=== PATIENT | male | born 1970 | race Caucasian/White ===

== ENCOUNTER 2024-09-10 09:11 | Inpatient (IN) | payer MEDICAID, MEDICARE, OTHER ==
[~2024-09-10] VITALS: Ht 180.3 cm; Wt 116.2 kg
--- NOTE | 2024-09-10 09:29 | ECG ---
[facility] Test Date: 2024-09-10 Test Time: 09:24:11 Pat Name: ARSALAN LAYTON Department: er Room: 0245T Gender: M Supervisor Tan Room: gp : 1970 Requested By: HUNG MORGAN Order Number: [id number] Reading MD: Felipe Huffman Measurements Intervals [place] Rate: 79 P: -3 [place]: 134 QRS: 109 QRSD: 109 T: -21 QT: 387 QTc: 444 Interpretive Statements Sinus rhythm Inferior infarct, age indeterminate Lateral leads are also involved Electronically Signed On 09-11-2024 18:22:58 PST by Felipe Huffman Please click the below link to view image of tracing.
--- NOTE | 2024-09-10 10:10 | ED.PDOC ---
History of Present Illness HPI Comments 64 Y M ADELSO with PMHX of HTN, HLD, and DM presents to the ED with CC of hyperglycemia. Per EMS, patient has been experiencing blood sugar spikes xdays with associated symptoms of nausea, vomiting, and dizziness. Per EMS, accu-check was 470 in route to ED. Patient states that he checked his blood sugar last night and glucometer read at 540 and took 45 units of insulin with no results. Patient denies fever, chills, body aches, or diarrhea. Chief Complaint: Hyperglycemia Time Seen by MD: 09:30 Primary Care Provider: UNKNOWN Reviewed Notes: Nurses Notes, Rn Social Services Notes, Medications, Allergies Allergies: Coded Allergies: NO KNOWN ALLERGIES (Unverified , 09/10/24) Information Source: Patient, Emergency Med Personnel Mode of Arrival: EMS Severity: Mild Timing: Hours Duration: Since onset Prehospital treatment: 12 Lead EKG, Accucheck Past Medical History PAST MEDICAL HISTORY: DM, High Lipids, HTN Surgical History: Unknown Family History Family History: Unknown Social History Smoker: Non-Smoker Alcohol: Denies ETOH Use Drugs: Denies Drug Use Lives In: Home Constitutional: denies: chills, diaphoresis, fatigue, fever, malaise, sweats, weakness, others EENTM: denies: blurred vision, double vision, ear bleeding, ear discharge, ear drainage, ear pain, ear ringing, eye pain, eye redness, hearing loss, mouth pain, mouth swelling, nasal discharge, nose bleeding, nose congestion, nose pain, photophobia, tearing, throat pain, throat swelling, voice changes, others Respiratory: denies: cough, hemoptysis, orthopnea, SOB at rest, shortness of breath, SOB with excertion, stridor, wheezing, others Gastrointestinal: reports: diarrhea, nausea; denies: abdomen distended, abdominal pain, blood streaked bowels, constipated, dysphagia, difficulty swallowing, hematemesis, melena, poor appetite, poor fluid intake, rectal bleeding, rectal pain, vomiting, others Genitourinary: denies: burning, dysuria, flank pain, frequency, hematuria, incontinence, penile discharge, penile sore, pain, testicle pain, testicle swelling, urgency, others Neurological: reports: dizziness; denies: fainting, headache, left sided numbness, left sided weakness, numbness, paresthesia, pre-existing deficit, right sided numbness, right sided weakness, seizure, speech problems, tingling, tremors, weakness, others Musculoskeletal: denies: back pain, gout, joint pain, joint swelling, muscle pain, muscle stiffness, neck pain, others Integumetry: denies: bruises, change in color, change in hair/nails, dryness, laceration, lesions, lumps, rash, wounds, others Allergic/Immunocompromised: denies: Difficulty Healing, Frequent Infections, Hives, Itching, others Hematologic/Lymphatic: denies: anemia, blood clots, easy bleeding, easy bruising, swollen glands, others Endocrine: denies: excessive hunger, excessive sweating, excessive thirst, excessive urination, flushing, intolerance to cold, intolerance to heat, unexplained weight gain, unexplained weight loss, others Psychiatric: denies: anxiety, bipolar disorder, depression, hopeless, panic disorder, schizophrenia, sleepless, suicidal, others All Other Systems: Reviewed and Negative Physical Exam General Appearance: Moderate Distress, Normal HEENT: Normal ENT Inspection, Pharynx Normal, TMs Normal Neck: Full Range of Motion, Non-Tender, Normal, Normal Inspection Respiratory: Chest Non-Tender, Lungs Clear, No Accessory Muscle Use, No Respiratory Distress, Normal Breath Sounds Cardiovascular: No Edema, No JVD, No Murmur, No Gallop, Normal Peripheral Pul ses, Regular Rate/Rhythm Breast Exam: Deferred Gastrointestinal: No Organomegaly, Non Tender, No Pulsatile Mass, Normal Bowel Sounds, Soft Genitalia: Deferred Pelvic: Deferred Rectal: Deferred Extremities: No calf tenderness, Normal capillary refill, Normal inspection, Normal range of motion, Non-tender, No pedal edema Musculoskeletal : Apperance: Normal Neurologic: Alert, global sales executive II-XII nml as Tested, No Motor Deficits, Normal Affect, Normal Mood, No Sensory Deficits Cerebellar Function: Normal Reflexes: Normal Skin: Dry, Normal Color, Warm Peripheral Pulses: 3+ Radial (R), 3+ Radial (L) Lymphatic: No Adenopathy Was a procedure done? Was a procedure done?: No Differential Dx Considerations may include: hyperglycemia Electrolyte imbalance X-Ray, Labs, Meds, VS Vital Signs Date Time Temp Pulse Resp B/P (MAP) Pulse Ox O2 Delivery O2 Flow Rate FiO2 09/10/24 11:48 97.9 71 17 101/60 (74) 97 97.9 09/10/24 09:32 98.5 78 18 104/72 (83) 100 98.5 09/10/24 09:24 79 09/10/24 09:20 98.9 82 24 117/70 (86) 100 Lab Test 09/10/24 09:48 Range/Units White Blood Count 5.2 4.4-10.8 10^3/uL Red Blood Count 5.72 4.5-5.90 10^6/uL Hemoglobin 16.7 13.5-17.5 g/dL Hematocrit 49.0 41.0-53.0 % Mean Corpuscular Volume 85.7 80.0-100.0 fL Mean Corpuscular Hemoglobin 29.2 28.0-32.0 pg Mean Corpuscular Hemoglobin Concent 34.1 32.0-36.0 g/dL Red Cell Distribution Width 14.5 H 11.8-14.3 % Platelet Count 227 140-450 10^3/uL Mean Platelet Volume 10.8 6.9-10.8 fL Neutrophils (%) (Auto) 42.6 37.0-80.0 % Lymphocytes (%) (Auto) 42.4 10.0-50.0 % Monocytes (%) (Auto) 6.7 0.0-12.0 % Eosinophils (%) (Auto) 6.5 0.0-7.0 % Basophils (%) (Auto) 1.8 0.0-2.0 % Neutrophils # (Auto) 2.2 1.6-8.6 10 ^3/uL Lymphocytes # (Auto) 2.2 0.4-5.4 10 ^3/uL Monocytes # (Auto) 0.3 0-1.3 10 ^3/uL Eosinophils # (Auto) 0.3 0-0.8 10 ^3/uL Basophils # (Auto) 0.1 0-0.2 10 ^3/uL Nucleated Red Blood Cells 0.2 % Sodium Level 132 L 136-145 mmol/L Potassium Level 4.8 3.5-5.1 mmol/L Chloride Level 99 98-107 mmol/L Carbon Dioxide Level 24 20-31 mmol/L Anion Gap 9 5-15 Blood Urea Nitrogen 19 9-23 mg/dL Creatinine 1.30 0.700-1.30 mg/dL Glomerular Filtration Rate Calc 61 >90 mL/min BUN/Creatinine Ratio 14.6 10.0-20.0 Serum Glucose 479 *H 74-106 mg/dL Calcium Level 10.1 8.7-10.4 mg/dL Troponin I High Sensitivity 3 L </=54 ng/L Current Medications Medications (Trade) Dose Ordered Sig/Jeremiah Route Start Time Stop Time Status Last Admin Sodium Chloride 1,000 ml @ 1,000 mls/hr Q1H ONCE IV 09/10/24 09:30 09/10/24 10:29 DC 09/10/24 10:57 Sodium Chloride 1,000 ml @ 150 mls/hr Q6H40M ONCE IV 09/10/24 09:30 09/10/24 16:09 09/10/24 11:30 Aspirin 325 mg ONCE ONCE PO 09/10/24 09:30 09/10/24 09:31 DC 09/10/24 10:58 Insulin Human Regular (InsuLIN R) 3 units ONCE ONCE IV 09/10/24 09:45 09/10/24 09:46 DC 09/10/24 11:00 Patient alert. Complaining of generalized weakness. Blood sugar elevated. Vitals stable. Establish intravenous access. Was given fluids. Was given insulin. Was given aspirin. Continues to have weakness along with feeling of faint. Reviewed his history pain Explained to the patient. Continue cardiac monitoring. Time of 1ST Reevaluation: 10:00 Reevaluation 1ST: Unchanged Patient Education/Counseling: Diagnosis, Treatment Family Education/Counseling: No Family Present Departure 1 Departure Time of Disposition: 12:27 Impression: Primary Impression: Uncontrolled diabetes mellitus Qualified Codes: E13.65 - Other specified diabetes mellitus with hyperglycemia Additional Impression: Autonomic disorder Disposition: ADMITTED INPATIENT Admit to: Med Surg Condition: Guarded Critical Care Note Critical Care Time?: Yes (45 min-critical care time only) Stability Stability form required: No Heart Score Heart Score: Heart Score Response (Comments) Value History Slightly Suspicious 0 EKG Normal 0 Age >65 2 Risk Factors >3 or Hx ASHD 2 Troponin Normal limit 0 Total 4 I personally scribed for HUNG MORGAN MD ([email or web address]) on 09/10/24 at 10:10. Electronically submitted by Xochitl Stephenson ([email or web address]). HUNG MORGAN MD Sep 10, 2024 10:10
[2024-09-10 10:29] LABS: Basophils # (auto) 0.1 10 ^3/uL (0-0.2); Basophils % (auto) 1.8 % (0.0-2.0); Eosinophils # (auto) 0.3 10 ^3/uL (0-0.8); Eosinophils % (auto) 6.5 % (0.0-7.0); Hemoglobin 16.7 g/dL (13.5-17.5); Lymphocytes # (auto) 2.2 10 ^3/uL (0.4-5.4); Lymphocytes % (auto) 42.4 % (10.0-50.0); Mean Corpuscular Hemoglobin 29.2 pg (28.0-32.0); Mean Corpuscular Hgb Conc. 34.1 g/dL (32.0-36.0); Mean Corpuscular Volume 85.7 fL (80.0-100.0); Monocytes # (auto) 0.3 10 ^3/uL (0-1.3); Monocytes % (auto) 6.7 % (0.0-12.0); Neutrophils # (auto) 2.2 10 ^3/uL (1.6-8.6); Neutrophils % (auto) 42.6 % (37.0-80.0); Nucleated Red Blood Cells % 0.2 %; Platelet Count (auto) 227 10^3/uL (140-450); Red Blood Cells 5.72 10^6/uL (4.5-5.90); Red Cell Distribution Width 14.5 % (11.8-14.3); White Blood Cell 5.2 10^3/uL (4.4-10.8)
[2024-09-10 10:49] LABS: Chloride 99 mmol/L (98-107); Potassium 4.8 mmol/L (3.5-5.1)
[2024-09-10 10:50] LABS: Anion Gap 9 (5-15); Carbon Dioxide 24 mmol/L (20-31)
[2024-09-10 10:51] LABS: Calcium 10.1 mg/dL (8.7-10.4); Sodium 132 mmol/L (136-145)
[2024-09-10 10:56] LABS: BUN/Creatinine Ratio 14.6 (10.0-20.0); Blood Urea Nitrogen 19 mg/dL (9-23)
[2024-09-10] MEDS: SODIUM CHLORIDE 0.9% 1,000 ML IV ONE ×2 (10:57→11:30)
[2024-09-10] MEDS: ASPirin 325 MG TAB PO ONE (10:58)
[2024-09-10] MEDS: InsuLIN REG 1unit/0.01ml Soln (100units/ml) IV ONE (11:00)
[2024-09-10 11:02] LABS: Glucose 479 mg/dL (74-106)
[2024-09-10] MEDS ORDERED: DOCUSATE SOD 100 MG CAP PO PRN (14:30)
[2024-09-10] MEDS: SODIUM CHLORIDE 0.9% 1,000 ML IV SCH (14:30)
[2024-09-10] MEDS ORDERED: ACETAMINOPHEN 325 MG TAB PO PRN (14:30)
[2024-09-10] MEDS ORDERED: DEXTROSE (50%) 50ML SYRG IV PRN (14:30)
[2024-09-10] MEDS: InsuLIN REG 1unit/0.01ml Soln (100units/ml) SC SCH (15:56)
[2024-09-10] MEDS: ACCU-CHEK COMFORT CURVE STRIP VI SCH (16:00)
--- NOTE | 2024-09-10 16:28 | DVHHP2 ---
History of Present Illness Reason for Visit: Uncontrolled diabetes mellitus History of Present Illness The patient is a 64-year-old male with multiple past medical history including hypertension, DM, and hyperlipidemia who presented to [facility] ED for evaluation of hyperglycemia. Patient reports associated symptoms of nausea, vomiting, dizziness, having anxiety, getting worse that prompted this visit. Patient was seen and evaluated in the ED, laboratory data shows WBC 5.2, platelets 227, sodium 132, potassium 4.8, BUN 19, creatinine 1.30, GFR 61, glucose 479, troponin 3. Patient was given 1 L bolus of normal saline IV x1, please see medication orders section in the computer. On my assessment, patient denied chest pain, no headache, no dizziness, no blurry vision, no shortness of breath, no nausea, no vomiting, no fever, no chills. Patient was admitted for further evaluation and medical management. Past Medical History Anxiety, DM, High Lipids, HTN, neuropathy, Schizophrenia Past Surgical History Unknown Family History Reviewed, noncontributory to the management of this case. Past Social History The patient lives at home, denies smoking, alcohol or illicit drugs abuse. Review of Systems Constitutional: Yes: Weakness; No: Fever, Chills, Sweats, Malaise, Other Eyes: No: Pain, Vision change, Conjunctivae inflammation, Eyelid inflammation, Other, Redness ENT: No: Ear pain, Ear discharge, Nose pain, Nose discharge, Nose congestion, Mouth pain, Mouth swelling, Throat pain, Throat swelling, Other Respiratory: No: Cough, Dry, Shortness of breath, SOB with excertion, Wheezing, Hemoptysis, Pleuritic Pain, Sputum, Wheezing, Other Cardiovascular: No: Chest Pain, Palpitations, Orthopnea, Paroxysmal Noc. Dyspnea, Edema, Lt Headedness, Other Gastrointestinal: Nausea, Vomiting, Diarrhea; No: Abdominal Pain, Constipation, Melena, Hematochezia, Other Genitourinary: No Dysuria, No Frequency, No Incontinence, No Hematuria, No Retention, No Other Musculoskeletal: No: other, neck pain, shoulder pain, arm pain, back pain, hand pain, leg pain, foot pain Skin: No: Rash, Lesions, Jaundice, Bruising, Other Neurological: Other (Dizziness); No: Weakness, Numbness, Incoordination, Change in speech, Confusion, Seizures Allergies: Coded Allergies: NO KNOWN ALLERGIES (Unverified , 09/10/24) Medications Current Medications Medications Dose Ordered Sig/Jeremiah Route Start Time Stop Time Status Last Admin Dose Admin Aspirin 81 mg DAILY PO 09/11/24 10:00 Atorvastatin Calcium 10 mg HS PO 09/10/24 22:00 Diagnostic Test (Pha) 1 strip IQ4HR 09/10/24 16:00 Insulin Human Regular IQ4HR SC 09/10/24 16:00 09/10/24 15:56 12 UNITS Dextrose 50 ml UD PRN IV 09/10/24 14:30 Sodium Chloride 1,000 ml @ 60 mls/hr [id number] IV 09/10/24 14:30 Acetaminophen/ Hydrocodone Bitart 1 tab Q4HP PRN PO 09/10/24 14:30 Ondansetron HCl 4 mg Q4HP PRN IV 09/10/24 14:30 Docusate Sodium 100 mg BIDPRN PRN PO 09/10/24 14:30 Acetaminophen 650 mg Q6HP PRN PO 09/10/24 14:30 Exam Vital Signs Vital Signs Date Time Temp Pulse Resp B/P (MAP) Pulse Ox O2 Delivery O2 Flow Rate FiO2 09/10/24 14:27 98.2 74 17 128/80 (96) 98 98.2 General Appearance: Alert, Oriented X3, Cooperative, No acute distress HEENT: Atraumatic, PERRLA, EOMI, Mucous membr. moist/pink Respiratory: Clear to auscultation, Normal air movement Cardiovascular: Regular rate, Normal S1, Normal S2, No murmurs Abdominal: Normal bowel sounds, Soft, No tenderness, No hepatospenomegaly, No masses Extremities: No clubbing, No cyanosis, No edema, Normal pulses, No tenderness/swelling Skin: No rashes, No breakdown, No significant lesion Neuro: Normal speech, Normal tone, Sensation intact, Cranial nerves 3-12 NL, Reflexes 2+, Other (Generalized weakness) Psych/Mental Status: Mental status NL, Mood NL Labs/Xrays Labs Test 09/10/24 09:48 Range/Units White Blood Count 5.2 4.4-10.8 10^3/uL Red Blood Count 5.72 4.5-5.90 10^6/uL Hemoglobin 16.7 13.5-17.5 g/dL Hematocrit 49.0 41.0-53.0 % Mean Corpuscular Volume 85.7 80.0-100.0 fL Mean Corpuscular Hemoglobin 29.2 28.0-32.0 pg Mean Corpuscular Hemoglobin Concent 34.1 32.0-36.0 g/dL Red Cell Distribution Width 14.5 H 11.8-14.3 % Platelet Count 227 140-450 10^3/uL Mean Platelet Volume 10.8 6.9-10.8 fL Neutrophils (%) (Auto) 42.6 37.0-80.0 % Lymphocytes (%) (Auto) 42.4 10.0-50.0 % Monocytes (%) (Auto) 6.7 0.0-12.0 % Eosinophils (%) (Auto) 6.5 0.0-7.0 % Basophils (%) (Auto) 1.8 0.0-2.0 % Neutrophils # (Auto) 2.2 1.6-8.6 10 ^3/uL Lymphocytes # (Auto) 2.2 0.4-5.4 10 ^3/uL Monocytes # (Auto) 0.3 0-1.3 10 ^3/uL Eosinophils # (Auto) 0.3 0-0.8 10 ^3/uL Basophils # (Auto) 0.1 0-0.2 10 ^3/uL Nucleated Red Blood Cells 0.2 % Sodium Level 132 L 136-145 mmol/L Potassium Level 4.8 3.5-5.1 mmol/L Chloride Level 99 98-107 mmol/L Carbon Dioxide Level 24 20-31 mmol/L Anion Gap 9 5-15 Blood Urea Nitrogen 19 9-23 mg/dL Creatinine 1.30 0.700-1.30 mg/dL Glomerular Filtration Rate Calc 61 >90 mL/min BUN/Creatinine Ratio 14.6 10.0-20.0 Serum Glucose 479 *H 74-106 mg/dL Calcium Level 10.1 8.7-10.4 mg/dL Troponin I High Sensitivity 3 L </=54 ng/L Assessment/Plan Assessment/Plan Uncontrolled diabetes mellitus Autonomic disorder Generalized weakness Other specified diabetes mellitus with hyperglycemia Plan 1. Admit to telemetry unit 2. Breathing treatment 3. Pain control management 4. Management of fluids and electrolytes 5. Consultation for hospitalist 6. Diagnostic tests chest x-ray 7. DVT prophylaxis-on aspirin 8. Repeat labs CBC, CMP in a.m. 9. Continue with current medical management 10. Treatment plan discussed with patient and RN. Patient verbalized understanding. Plan discussed with: Patient, Other (RN) My Orders Orders - ESTEVAN BROWN DNP Procedure Category Date Status Time Consistent DIET 09/10/24 Transmitted Carb(Ccho)Diabetes Dinner Aspirin Tablet PHA 09/11/24 In Process 10:00 Atorvastatin (Lipitor) PHA 09/10/24 In Process 22:00 Glucose Blood PHA 09/10/24 In Process (Accu-Chek Comfort 16:00 Insulin R (Human) PHA 09/10/24 In Process (Insulin R) 16:00 Dextrose 50% Syringe PHA 09/10/24 In Process 14:30 Allergies AYLA 09/10/24 In Process 14:24 Code Status CODE 09/10/24 Transmitted 14:24 Sodium Chloride 0.9% PHA 09/10/24 In Process 14:30 Oxygen Per Hour RT 09/10/24 Transmitted 14:24 Hydrocodone-Acet PHA 09/10/24 In Process 5/325mg Tab ([place] 14:30 Ondansetron Hcl PHA 09/10/24 In Process (Zofran) 14:30 Docusate Sodium PHA 09/10/24 In Process Capsule (Colace 14:30 Complete Blood Count LAB 09/11/24 Verified 04:00 Comprehensive LAB 09/11/24 Verified Metabolic Panel 04:00 Condition: Serious AYLA 09/10/24 In Process 14:24 Acetaminophen Tablet PHA 09/10/24 In Process (Tylenol Tablet) 14:30 Bedrest With Bathroom AYLA 09/10/24 In Process Privileg 14:24 Sequential AYLA 09/10/24 In Process Compression Device Gabapentin Capsule PHA 09/10/24 Verified (Neurontin Capsule) 22:00 Admit ADMIT 09/10/24 Verified 16:25 Nitroglycerin PHA 09/10/24 Verified Sublingual (Ntrostat 16:30 Morphine Sulfate PHA 09/10/24 Verified Injection 16:30 Notify Of Changes AYLA 09/10/24 Verified From Base 16:25 Switch Engineer For [facility] 09/10/24 Verified 24 Hours 16:25 Emergency Dysrhythmia AYLA 09/10/24 Verified Protocol 16:25 Rhythm Strips Once AYLA 09/10/24 Verified Every Shift 16:25 Oxygen By Nasal RT 09/10/24 Verified Cannula 16:25 Problem List: (1) Uncontrolled diabetes mellitus (2) Autonomic disorder (3) Generalized weakness (4) Other specified diabetes mellitus with hyperglycemia Date of Service: Sep 10, 2024 Billing Provider: ESTEVAN BROWN DNP Common Visit Codes: [id number] INP/OBS CARE (HIGH) ESTEVAN BROWN DNP Sep 10, 2024 16:28
[2024-09-10] MEDS ORDERED: NITROGLYCERIN 0.4 MG SL TAB SL PRN (16:30)
[2024-09-10] MEDS: MORPHINE SULFATE INJ 2 MG/ml SYRG IV PRN (19:54)
[2024-09-10] MEDS: ONDANSETRON HCL 4 MG/2 ML VIAL IV PRN (19:54)
[2024-09-10 23:00] VITALS: PULSE 71; RESP 19; O2SAT 98
[2024-09-11] VITALS (8 sets, daily range): BP systolic 108–132; BP diastolic 70–84; PULSE 62–75; RESP 16–20; TEMP 98–98.5; O2SAT 93–99
[2024-09-11] MEDS: ATORVASTATIN 20 MG TAB PO SCH ×2 (00:08→21:09)
[2024-09-11] MEDS: GABAPENTIN 300 MG CAP PO SCH (00:09)
[2024-09-11 07:33] LABS: Basophils # (auto) 0 10 ^3/uL (0-0.2); Basophils % (auto) 0.7 % (0.0-2.0); Eosinophils # (auto) 0.6 10 ^3/uL (0-0.8); Hemoglobin 16.2 g/dL (13.5-17.5); Lymphocytes # (auto) 2.6 10 ^3/uL (0.4-5.4); Lymphocytes % (auto) 42.5 % (10.0-50.0); Mean Corpuscular Hemoglobin 29.4 pg (28.0-32.0); Mean Corpuscular Hgb Conc. 34.5 g/dL (32.0-36.0); Mean Corpuscular Volume 85.2 fL (80.0-100.0); Monocytes # (auto) 0.4 10 ^3/uL (0-1.3); Monocytes % (auto) 7.1 % (0.0-12.0); Neutrophils # (auto) 2.4 10 ^3/uL (1.6-8.6); Neutrophils % (auto) 39.7 % (37.0-80.0); Nucleated Red Blood Cells % 0.2 %; Platelet Count (auto) 174 10^3/uL (140-450); Red Blood Cells 5.52 10^6/uL (4.5-5.90); Red Cell Distribution Width 14.2 % (11.8-14.3); White Blood Cell 6.2 10^3/uL (4.4-10.8)
[2024-09-11 08:15] LABS: Alanine Aminotransferase 14 U/L (7-40); Anion Gap 9 (5-15); Blood Urea Nitrogen 16 mg/dL (9-23); Calcium 9.9 mg/dL (8.7-10.4); Carbon Dioxide 24 mmol/L (20-31); Chloride 105 mmol/L (98-107); Potassium 3.9 mmol/L (3.5-5.1); Sodium 138 mmol/L (136-145)
[2024-09-11 08:16] LABS: Albumin 3.9 g/dL (3.2-4.8); Bilirubin, Total 0.6 mg/dL (0.2-1.0); Total Protein 6.5 g/dL (5.7-8.2)
[2024-09-11 08:28] LABS: Alkaline Phosphatase 124 U/L (46-116); Aspartate Aminotransferase 13 U/L (13-40); Glucose 170 mg/dL (74-106)
[2024-09-11] MEDS: ASPirin 81 mg TAB PO SCH (09:16)
[2024-09-11] MEDS: HYDROcodone-ACET 5/325MG TAB PO PRN (09:18)
[2024-09-11 10:01] LABS: Urine Bacteria None Seen /hpf (None Seen)
[2024-09-11 10:35] LABS: Urine Blood Negative /uL (Negative); Urine Clarity Turbid (Clear); Urine Color Light-Yellow (Yellow); Urine Protein, UAD Negative (Negative); Urine Specific Gravity 1.016 (1.001-1.035); Urine Squamous Epithelial Cell None Seen /hpf (<5); Urine Urobilinogen Normal (Negative); Urine WBC 4 /hpf (0 - 3)
--- NOTE | 2024-09-11 15:28 | DVHPN2 ---
Progress Note Date Seen: Sep 11, 2024 Medical Necessity Reason Pt with a Central, PICC or Fol: No Subjective Patient reports: No new complaints Review of Systems: HEENT:Normal, CVS:Normal, RESPIRATORY:Normal, GI:Normal, :Normal, MSK:Normal, NEURO:Normal Objective vital signs Vital Sign Date Time Temp Pulse Resp B/P (MAP) Pulse Ox O2 Delivery O2 Flow Rate FiO2 09/11/24 13:00 98.5 75 20 123/78 (93) 97 98.5 09/11/24 02:00 Room Air* 0 21 Total Intake and Output 09/10/24 09/10/24 09/11/24 15:00 23:00 07:00 Intake Total 0 ml Balance 0 ml medications Current Medications Medications Dose Ordered Sig/Jeremiah Route Start Time Stop Time Status Last Admin Dose Admin Aspirin 81 mg DAILY PO 09/11/24 10:00 09/11/24 09:16 81 MG Atorvastatin Calcium 10 mg HS PO 09/10/24 22:00 09/11/24 00:08 10 MG Diagnostic Test (Pha) 1 strip IQ4HR 09/10/24 16:00 09/11/24 12:56 1 STRIP Insulin Human Regular IQ4HR SC 09/10/24 16:00 09/11/24 12:58 16 UNITS Dextrose 50 ml UD PRN IV 09/10/24 14:30 Sodium Chloride 1,000 ml @ 60 mls/hr [id number] IV 09/10/24 14:30 09/11/24 09:32 60 MLS/HR Acetaminophen/ Hydrocodone Bitart 1 tab Q4HP PRN PO 09/10/24 14:30 09/11/24 13:20 1 TAB Ondansetron HCl 4 mg Q4HP PRN IV 09/10/24 14:30 09/10/24 19:54 4 MG Docusate Sodium 100 mg BIDPRN PRN PO 09/10/24 14:30 Acetaminophen 650 mg Q6HP PRN PO 09/10/24 14:30 Gabapentin 300 mg TID PO 09/10/24 22:00 09/11/24 13:21 300 MG Nitroglycerin 0.4 mg Q5MINP PRN SL 09/10/24 16:30 Morphine Sulfate 2 mg Q30M PRN IV 09/10/24 16:30 09/10/24 19:54 2 MG Examination: GENERAL:Normal, HEENT:Normal, NECK:Normal, LUNGS:Normal, CVS:Normal, ABDOMEN:Normal, MSK:Normal, SKIN:Normal, NEURO:Normal, :Normal laboratory and microbiology Laboratory Tests 09/11/24 06:05 Test 09/11/24 06:05 Range/Units Serum Glucose 170 #H 74-106 mg/dL Problem List/Assessment/Plan Problem List/Assessment/Plan #1 uncontrolled dm: lantus, ssi #2 htn #3 cad s/p cabg #4 bipolar/schizophrenia #5 h/o alcohol abuse #6 obesity #7 peripheral neuropathy advance care planning- full code- time spent 19mins Plan discussed with: Patient Date of Service: Sep 11, 2024 Billing Provider: JARON ZENDEJAS MD Common Visit Codes: [id number] INP/OBS CARE(HIGH) Secondary Visit Codes: [id number] CARE PLAN 30 MINUTES JARON ZENDEJAS MD Sep 11, 2024 15:28
[2024-09-11] MEDS ORDERED: DEXTROSE (50%) 50ML SYRG IV PRN (15:30)
[2024-09-11] MEDS ORDERED: METF-370 PO (15:42)
[2024-09-11] MEDS ORDERED: INSU100I51 SC (15:42)
[2024-09-11] MEDS ORDERED: ESCI10TA PO (15:42)
[2024-09-11] MEDS ORDERED: ATOR-47 PO (15:42)
[2024-09-11] MEDS ORDERED: PREG75CA PO (15:42)
[2024-09-11] MEDS ORDERED: ARIP20TA4 PO (15:42)
[2024-09-11] MEDS ORDERED: LISI20TA56 PO (15:42)
[2024-09-11] MEDS ORDERED: TRAZ1TAB12 PO (15:42)
--- NOTE | 2024-09-11 16:29 | DVHSR ---
APPROVED REPORT EXAM: Two-dimensional and M-mode echocardiogram with Doppler and color Doppler. Blood Pressure: 123/78 mmHg INDICATION CABG RISK FACTORS Height: 70, Weight: 253 DIMENSIONS LVDd4.6 (3.8-5.7cm)LA (2D)5.0 (1.9-4.0cm)Aortic Root4.1 (2.0-3.7cm) LVDs3.5 (2.5-4.0cm)LA (MM) (1.9-4.0cm)Aortic Cusp Exc1.0 (1.5-2.0cm) EF (%) 48.0 (55-70%)Rt. Atrium3.3 (1.9-4.0cm)Asc. Aorta cm IVSd1.4 (0.7-1.1cm)RV (D) (1.8-2.4cm) PWd1.4 (0.7-1.1cm) Mitral Valve MitralMitral Stenosis E wave0.83m/sMV Mean GR.mmHg A wave0.79m/sMV Peak GR.19mmHg E/A ratio1.12D MVAcm2 DECEL [id number] 1/2 [id number] IVRTmsDop MVA3.20cm2 Aortic Valve Aortic ValveAortic Stenosis V11.01m/Dusty Mean GR.3mmHg V21.14m/Dusty Peak GR.5mmHg LVOT Diameter2.2 (1.8-2.4cm)Doppler AVA3.37cm2 Pulmonic Valve V20.79m/s Tricuspid Valve TR Velocity2.15m/s [id number] Conclusion lvef 45% hypokinetic apex and anteroseptum dilated LV mild RV enlarged left atrium enlarged mild mild mitral regurg
[2024-09-11] MEDS: THIAMINE HCL 100 MG TAB PO ONE (17:54)
[2024-09-11] MEDS: HYDROcodone-ACET 10/325MG TAB PO PRN (17:54)
[2024-09-11] MEDS: PREGABALIN CAPSULE 75 MG CAP PO ONE (17:55)
[2024-09-11] MEDS: ACCU-CHEK COMFORT CURVE STRIP VI SCH (17:55)
[2024-09-11] MEDS: InsuLIN REG 1unit/0.01ml Soln (100units/ml) SC SCH (18:02)
[2024-09-11] MEDS: PREGABALIN CAPSULE 75 MG CAP PO SCH (21:09)
[2024-09-11] MEDS: INSULIN LANTUS (GLARGINE) 1 /0.01ml (100units/ml) SC SCH (21:18)
[2024-09-12] VITALS (8 sets, daily range): BP systolic 121–137; BP diastolic 65–81; PULSE 54–70; RESP 14–20; TEMP 97.6–99.2; O2SAT 93–98
[2024-09-12 06:49] LABS: Anion Gap 2 (5-15); Carbon Dioxide 27 mmol/L (20-31); Chloride 106 mmol/L (98-107); Potassium 4.1 mmol/L (3.5-5.1)
[2024-09-12 06:50] LABS: Calcium 8.7 mg/dL (8.7-10.4)
[2024-09-12 06:52] LABS: Sodium 135 mmol/L (136-145)
[2024-09-12 06:55] LABS: BUN/Creatinine Ratio 11.6 (10.0-20.0); Blood Urea Nitrogen 11 mg/dL (9-23)
[2024-09-12 06:57] LABS: Glucose 240 mg/dL (74-106); Magnesium 1.3 mg/dL (1.6-2.6)
[2024-09-12] MEDS: THIAMINE HCL 100 MG TAB PO SCH (09:04)
--- NOTE | 2024-09-12 10:32 | ECG ---
[facility] Test Date: 2024-09-11 Test Time: 21:39:44 Pat Name: ARSALAN LAYTON Department: Respiratoy Room: 0245T B Gender: M Health Associate: [id number] : 1970 Requested By: JARON VELIZ Order Number: [id number] Reading MD: Janak Vera Measurements Intervals [place] Rate: 64 P: 14 ME: 157 QRS: -8 QRSD: 114 T: 9 QT: 422 QTc: 436 Interpretive Statements Sinus rhythm Inferior infarct, old Electronically Signed On 09-12-2024 12:30:19 PST by Janak Vera Please click the below link to view image of tracing.
--- NOTE | 2024-09-12 15:25 | DVHPN2 ---
Progress Note Date Seen: Sep 12, 2024 Medical Necessity Reason Pt with a Central, PICC or Fol: No Subjective Patient reports: No new complaints Review of Systems: HEENT:Normal, CVS:Normal, RESPIRATORY:Normal, GI:Normal, :Normal, MSK:Normal, NEURO:Normal Objective vital signs Vital Sign Date Time Temp Pulse Resp B/P (MAP) Pulse Ox O2 Delivery O2 Flow Rate FiO2 09/12/24 12:59 98.4 61 14 137/78 (97) 98 98.4 09/11/24 20:00 Room Air* 0 21 Total Intake and Output 09/11/24 09/11/24 09/12/24 15:00 23:00 07:00 Intake Total 1920 ml 1390 ml Output Total 760 ml Balance 1920 ml 630 ml medications Current Medications Medications Dose Ordered Sig/Jeremiah Route Start Time Stop Time Status Last Admin Dose Admin Aspirin 81 mg DAILY PO 09/11/24 10:00 09/12/24 09:04 81 MG Sodium Chloride 1,000 ml @ 60 mls/hr [id number] IV 09/10/24 14:30 09/11/24 23:34 60 MLS/HR Ondansetron HCl 4 mg Q4HP PRN IV 09/10/24 14:30 09/10/24 19:54 4 MG Docusate Sodium 100 mg BIDPRN PRN PO 09/10/24 14:30 Acetaminophen 650 mg Q6HP PRN PO 09/10/24 14:30 Nitroglycerin 0.4 mg Q5MINP PRN SL 09/10/24 16:30 Morphine Sulfate 2 mg Q30M PRN IV 09/10/24 16:30 09/11/24 21:57 2 MG Atorvastatin Calcium 40 mg HS PO 09/11/24 22:00 09/11/24 21:09 40 MG Acetaminophen/ Hydrocodone Bitart 1 tab Q6HP PRN PO 09/11/24 15:30 09/12/24 12:25 1 TAB Pregabalin 150 mg BID PO 09/11/24 22:00 09/12/24 09:04 150 MG Insulin Glargine 30 units BID@0700,2200 SC 09/11/24 22:00 09/12/24 06:23 30 UNITS Diagnostic Test (Pha) 1 strip IQ4HR 09/11/24 16:00 09/12/24 12:25 1 STRIP Insulin Human Regular IQ4HR SC 09/11/24 16:00 09/12/24 12:28 9 UNITS Dextrose 50 ml UD PRN IV 09/11/24 15:30 Thiamine HCl 100 mg DAILY PO 09/12/24 10:00 09/12/24 09:04 100 MG Examination: GENERAL:Normal, HEENT:Normal, NECK:Normal, LUNGS:Normal, CVS:Normal, ABDOMEN:Normal, MSK:Normal, SKIN:Normal, NEURO:Normal, :Normal laboratory and microbiology Laboratory Tests 09/12/24 05:57 09/11/24 06:05 Test 09/12/24 05:57 Range/Units Serum Glucose 240 H 74-106 mg/dL Problem List/Assessment/Plan Problem List/Assessment/Plan #1 uncontrolled dm: increase lantus, ssi #2 htn #3 cad s/p cabg #4 bipolar/schizophrenia #5 h/o alcohol abuse #6 obesity #7 peripheral neuropathy advance care planning- full code- time spent 19mins Plan discussed with: Patient My Orders My Orders Orders - JARON ZENDEJAS MD Procedure Category Date Status Time Atorvastatin (Lipitor) PHA 09/11/24 In Process 22:00 Hydrocodone-Acet PHA 09/11/24 In Process 10/325mg Tab ([place] 15:30 Pregabalin Capsule PHA 09/11/24 In Process (Lyrica Capsule) 22:00 Insulin Lantus PHA 09/11/24 In Process (Glargine) (Lantus) 22:00 Glucose Blood PHA 09/11/24 In Process (Accu-Chek Comfort 16:00 Insulin R (Human) PHA 09/11/24 In Process (Insulin R) 16:00 Dextrose 50% Syringe PHA 09/11/24 In Process 15:30 Echo 2d Mode Cardiac US 09/11/24 Resulted DOP 15:20 Thiamine Tab PHA 09/12/24 In Process 10:00 * Financial Operations Analyst CONS 09/12/24 Transmitted Consult Date of Service: Sep 12, 2024 Billing Provider: JARON ZENDEJAS MD Common Visit Codes: [id number] INP/OBS CARE(HIGH) JARON ZENDEJAS MD Sep 12, 2024 15:25
[2024-09-12] MEDS ORDERED: DEXTROSE (50%) 50ML SYRG IV PRN (15:30)
[2024-09-12] MEDS: MAGNESIUM SULFATE 1GM/100ML 100 ML IV SCH (17:55)
[2024-09-12] MEDS: metFORMIN HYDROCHLORIDE 500 MG TAB PO SCH (17:56)
[2024-09-12] MEDS: ACCU-CHEK COMFORT CURVE STRIP VI SCH (17:57)
[2024-09-12] MEDS: InsuLIN REG 1unit/0.01ml Soln (100units/ml) SC SCH ×2 (18:03→21:38)
[2024-09-12] MEDS: traZODone HCL 50 MG TAB PO SCH (21:20)
[2024-09-12] MEDS: INSULIN LANTUS (GLARGINE) 1 /0.01ml (100units/ml) SC SCH (21:40)
[2024-09-13 08:41] VITALS: BP 91/81; PULSE 72; RESP 16; TEMP 97.9; O2SAT 95
--- NOTE | 2024-09-13 10:54 | DVHDS2 ---
Discharge Summary Date of Admission Sep 10, 2024 at 16:25 Date of Discharge: Sep 13, 2024 Labs/Diagnostic Data: Laboratory Results Test 09/13/24 06:02 09/12/24 05:57 09/11/24 09:27 09/11/24 06:05 POC Glucose 170 mg/dl (70-106) Sodium Level 135 mmol/L (136-145) Potassium Level 4.1 mmol/L (3.5-5.1) Chloride Level 106 mmol/L (98-107) Carbon Dioxide Level 27 mmol/L (20-31) Anion Gap 2 (5-15) Blood Urea Nitrogen 11 mg/dL (9-23) Creatinine 0.95 mg/dL (0.700-1.30) Glomerular Filtration Rate Calc 94 mL/min (>90) BUN/Creatinine Ratio 11.6 (10.0-20.0) Serum Glucose 240 mg/dL (74-106) Hemoglobin A1c 11.2 % A1C (<5.7) Calcium Level 8.7 mg/dL (8.7-10.4) Magnesium Level 1.3 mg/dL (1.6-2.6) Urine Color Light-yellow (Yellow) Urine Clarity Turbid (Clear) Urine pH 5.0 (5.0-9.0) Urine Specific [place] 1.016 (1.001-1.035) Urine Protein Negative (Negative) Urine Ketones Negative (Negative) Urine Blood Negative /uL (Negative) Urine Nitrite Negative (Negative) Urine Bilirubin Negative (Negative) Urine Urobilinogen Normal mg/dL (Negative) Urine Leukocyte Esterase Negative /uL (Negative) Urine RBC 1 /hpf (0 - 3) Urine WBC 4 /hpf (0 - 3) Urine Squamous Epithelial Cells None seen /hpf (<5) Urine Uric Acid Crystals Few /hpf (None Seen) Urine Bacteria None seen /hpf (None Seen) Urine Glucose 1+ mg/dL (Normal) White Blood Count 6.2 10^3/uL (4.4-10.8) Red Blood Count 5.52 10^6/uL (4.5-5.90) Hemoglobin 16.2 g/dL (13.5-17.5) Hematocrit 47.0 % (41.0-53.0) Mean Corpuscular Volume 85.2 fL (80.0-100.0) Mean Corpuscular Hemoglobin 29.4 pg (28.0-32.0) Mean Corpuscular Hemoglobin Concent 34.5 g/dL (32.0-36.0) Red Cell Distribution Width 14.2 % (11.8-14.3) Platelet Count 174 10^3/uL (140-450) Mean Platelet Volume 10.5 fL (6.9-10.8) Neutrophils (%) (Auto) 39.7 % (37.0-80.0) Lymphocytes (%) (Auto) 42.5 % (10.0-50.0) Monocytes (%) (Auto) 7.1 % (0.0-12.0) Eosinophils (%) (Auto) 10.0 % (0.0-7.0) Basophils (%) (Auto) 0.7 % (0.0-2.0) Neutrophils # (Auto) 2.4 10 ^3/uL (1.6-8.6) Lymphocytes # (Auto) 2.6 10 ^3/uL (0.4-5.4) Monocytes # (Auto) 0.4 10 ^3/uL (0-1.3) Eosinophils # (Auto) 0.6 10 ^3/uL (0-0.8) Basophils # (Auto) 0 10 ^3/uL (0-0.2) Nucleated Red Blood Cells 0.2 % Total Bilirubin 0.6 mg/dL (0.2-1.0) Aspartate Amino Transferase (AST) 13 U/L (13-40) Alanine Aminotransferase (ALT) 14 U/L (7-40) Alkaline Phosphatase 124 U/L (46-116) Total Protein 6.5 g/dL (5.7-8.2) Albumin 3.9 g/dL (3.2-4.8) Test 09/10/24 09:48 Troponin I High Sensitivity 3 ng/L (</=54) Other Laboratory Tests 09/12/24 05:57 09/11/24 06:05 Brief Hx & Hospital Course: SEE DICTATED NOTE Condition at Discharge: Fair Final Diagnosis/Problems List DIABETES Discharge Disposition: Residential Shelter Discharge Instruct/Medications Diet: Consistent carbohydrate, Cardiac 2g Na,low cholest Activity: No Restrictions, As Tolerated Follow Up/Referral: FU WIHT PCP IN 1 WK Medications: RESUME HOME MEDS EXCEPT INSULIN 70/30 SCRIPT TO PHARMACY Discharge Statement: "Patient was advised to return to the ER or call 911 if any headaches, dizziness, shortness of breath, chest pain, abdominal pain, bleeding, fevers, or worsening of medical condition. Patient was counseled about treatment plan, medications, possible side effects, patientverbalized understanding. All questions were answered to the best of my ability. This discharge took greater then 30 minutes in planning, reviewing documentation, counseling the patient, and discussing with other team members." ASSESSMENT ASSESSMENT Assessment DIABETES Date of Service: Sep 13, 2024 Billing Provider: JARON ZENDEJAS MD Common Visit Codes: 81255-IBD/OBS DISCH DAY >30min JARON ZENDEJAS MD Sep 13, 2024 10:54
[2024-09-13] MEDS ORDERED: INSU100I49 SC (11:01)
[2024-09-13] MEDS ORDERED: INSLANTI SC (11:01)
--- NOTE | 2024-09-13 11:18 | DVHDS ---
DATE OF DISCHARGE: 09/13/2024 HISTORY OF PRESENT ILLNESS: The patient is a 54-year-old gentleman who was admitted with history of elevated blood sugars and has history of hypertension, diabetes, hyperlipidemia, and previous CABG. HOSPITAL COURSE: The patient had a hemoglobin A1c that was elevated at 11.6. The patient was placed on Lantus along with sliding scale. The patient's echocardiogram done showed an ejection fraction of 45%. The patient now is doing well and blood sugars have improved. He will be discharged to resume his home medications except for the 70/30 insulin. The patient will instead be placed on Lantus insulin 45 units b.i.d. along with a sliding scale before each meal. I have also given him prescriptions for syringes and lancets and insulin needles. He will follow up with his primary in 1 week. FINAL DIAGNOSES: Therefore, * Uncontrolled diabetes mellitus. * Hypertension. * Coronary artery disease, status post coronary artery bypass graft. * Bipolar/schizophrenic disorder. * History of alcohol abuse. * Obesity. * Peripheral neuropathy. * Hyperlipidemia. Time spent in discharge planning and review of plan with the patient and nursing was 39 minutes. MD CUCA Bhatti/PAGE TID: [id number] RECEIPT: [id number]
[2024-09-13 12:56] VITALS: BP 114/86; PULSE 87; RESP 18; TEMP 98; O2SAT 94
[2024-09-13 13:08] VITALS: TEMP 36.7
== END 2024-09-13 14:30 | disposition home or self-care (01) | DRG 420 ==
LOC: EDBD 09:11 → ER 09:11 → TELE 16:25 → TELE-EAST 23:56
PROVIDERS: ADMIT Internal Medicine; ATTEND Internal Medicine
DX: E11.65 Type 2 diabetes mellitus with hyperglycemia (principal); G90.9 Disorder of the autonomic nervous system, unspecified; E11.40 Type 2 diabetes mellitus with diabetic neuropathy, unspecified; F20.9 Schizophrenia, unspecified; I10 Essential (primary) hypertension; I25.10 Atherosclerotic heart disease of native coronary artery without angina pectoris; E78.5 Hyperlipidemia, unspecified; E66.9 Obesity, unspecified; F41.9 Anxiety disorder, unspecified; Z68.35 Body mass index [BMI] 35.0-35.9, adult; F31.9 Bipolar disorder, unspecified; Z95.1 Presence of aortocoronary bypass graft; Z79.4 Long term (current) use of insulin
CPT/HCPCS: 36415; 80048; 80053; 81001; 82962; 83036; 83735; 84484; 85025; 93005; 93306; 96361; 96374; 99291; G0378; J1815; J2405

== ENCOUNTER 2024-10-22 14:48 | Inpatient (IN) | payer MEDICAID ==
[~2024-10-22] VITALS: Ht 177.8 cm; Wt 119.3 kg
[~2024-10-22 14:48] MED LIST: ARIP20TA4 PO; ATOR-47 PO; ESCI10TA PO; INSLANTI SC; INSU100I49 SC; INSU100I51 SC; LISI20TA56 PO; METF-370 PO; PREG75CA PO; TRAZ1TAB12 PO
[2024-10-22] MEDS: SODIUM CHLORIDE 0.9% 1,000 ML IV ONE (15:00)
[2024-10-22] MEDS: ASPirin 325 MG TAB PO ONE (15:00)
--- NOTE | 2024-10-22 15:00 | ED.PDOC ---
History of Present Illness HPI Comments 54-year-old male with PMHx Schizophrenia, Bipolar Disorder, CAD, DM brought in by EMS presents with a chief complaint of chest pain, hyperglycemia, and suicidal ideation. Patient lives at [facility] and expressed his dislike about his living situation to EMS and attempted to overdose on his Lipitor in front of EMS. Patient is now complaining of chest pain to his right chest, nonradiating, describes as pressure. Patient was also hyperglycemic at 420 via accu check. Time Seen by MD: 14:48 Primary Care Provider: UNKNOWN Reviewed Notes: Medications, Allergies Allergies: Coded Allergies: NO KNOWN ALLERGIES (Unverified , 09/10/24) Home Meds Active Scripts Insulin Aspart (Insulin Aspart) 100 Unit/Ml Inj, 100 UNIT SC TIDWM for 30 Days, #1 INJ 4 Refills INSULIN PER SLIDING SCALE TID AC 150-200: 2 UNITS 201-250: 4 UNITS 251-300: 8 UNITS 301-350: 12 UNITS 351-400: 15 UNITS > 401 CALL DOCTOR Prov:JARON ZENDEJAS MD 09/13/24 Insulin Glargine (Lantus) 100 Unit/Ml Inj, 45 UNIT SC BID for 30 Days, #1 INJ 4 Refills Prov:JARON ZENDEJAS MD 09/13/24 Reported Medications Insulin Aspart (Insulin Aspart Flexpen) 100 Unit/Ml Inj, 40 UNIT SC BID 09/11/24 Pregabalin (Lyrica) 75 Mg Cap, 1 CAP PO TID 09/11/24 Atorvastatin Calcium (ATORVASTATIN CALCIUM) 80 Mg Tab, 1 TAB PO DAILY 09/11/24 Lisinopril (Lisinopril) 20 Mg Tab, 20 MG PO BID 09/11/24 Metformin Hydrochloride (Metformin Hcl) 500 Mg Tab, 1000 MG PO BID 09/11/24 Escitalopram Oxalate (Lexapro) 10 Mg Tab, 1 TAB PO DAILY 09/11/24 Aripiprazole (Abilify) 20 Mg Tab, 15 MG PO DAILY 09/11/24 Trazodone Hcl (Trazodone Hcl) 150 Mg Tab, 1 TAB PO QPM 09/11/24 Information Source: Patient, Emergency Med Personnel Mode of Arrival: EMS Severity: Moderate Timing: Minutes Duration: Since onset Prehospital treatment: None Past Medical History PAST MEDICAL HISTORY: CAD, DM, High Lipids, HTN Past Medical History (Other): Bipolar Disorder Surgical History: CABG Family History Family History: Reviewed,noncontributory to illness Social History Smoker: Non-Smoker Alcohol: Denies ETOH Use Drugs: Denies Drug Use Lives In: Other Constitutional: denies: chills, diaphoresis, fatigue, fever, malaise, sweats, weakness, others EENTM: denies: blurred vision, double vision, ear bleeding, ear discharge, ear drainage, ear pain, ear ringing, eye pain, eye redness, hearing loss, mouth pain, mouth swelling, nasal discharge, nose bleeding, nose congestion, nose pain, photophobia, tearing, throat pain, throat swelling, voice changes, others Respiratory: denies: cough, hemoptysis, orthopnea, SOB at rest, shortness of breath, SOB with excertion, stridor, wheezing, others Cardiovascular: reports: chest pain; denies: dizzy spells, diaphoresis, Dyspnea on exertion, edema, irregular heart beat, left arm pain, lightheadedness, palpitations, PND, syncope, others Gastrointestinal: denies: abdomen distended, abdominal pain, blood streaked bowels, constipated, diarrhea, dysphagia, difficulty swallowing, hematemesis, melena, nausea, poor appetite, poor fluid intake, rectal bleeding, rectal pain, vomiting, others Genitourinary: denies: burning, dysuria, flank pain, frequency, hematuria, incontinence, penile discharge, penile sore, pain, testicle pain, testicle swelling, urgency, others Neurological: denies: dizziness, fainting, headache, left sided numbness, left sided weakness, numbness, paresthesia, pre-existing deficit, right sided numbness, right sided weakness, seizure, speech problems, tingling, tremors, weakness, others Musculoskeletal: denies: back pain, gout, joint pain, joint swelling, muscle pain, muscle stiffness, neck pain, others Integumetry: denies: bruises, change in color, change in hair/nails, dryness, laceration, lesions, lumps, rash, wounds, others Allergic/Immunocompromised: denies: Difficulty Healing, Frequent Infections, Hives, Itching, others Hematologic/Lymphatic: denies: anemia, blood clots, easy bleeding, easy bruising, swollen glands, others Endocrine: reports: others (HYPERGLYCEMIA); denies: excessive hunger, excessive sweating, excessive thirst, excessive urination, flushing, intolerance to cold, intolerance to heat, unexplained weight gain, unexplained weight loss Psychiatric: reports: suicidal; denies: anxiety, bipolar disorder, depression, hopeless, panic disorder, schizophrenia, sleepless, others All Other Systems: Reviewed and Negative Physical Exam General Appearance: Moderate Distress, Normal HEENT: Normal ENT Inspection, Pharynx Normal, TMs Normal Neck: Full Range of Motion, Non-Tender, Normal, Normal Inspection Respiratory: Chest Non-Tender, Lungs Clear, No Accessory Muscle Use, No Respiratory Distress, Normal Breath Sounds Cardiovascular: No Edema, No JVD, No Murmur, No Gallop, Normal Peripheral Pulses, Regular Rate/Rhythm Breast Exam: Deferred Gastrointestinal: No Organomegaly, Non Tender, No Pulsatile Mass, Normal Bowel Sounds, Soft Genitalia: Deferred Pelvic: Deferred Rectal: Deferred Extremities: No calf tenderness, Normal capillary refill, Normal inspection, Normal range of motion, Non-tender, No pedal edema Musculoskeletal : Apperance: Normal Neurologic: Alert, technician semiconductor development II-XII nml as Tested, No Motor Deficits, Normal Affect, Normal Mood, No Sensory Deficits Cerebellar Function: NOT DONE Reflexes: NOT DONE Skin: Dry, Normal Color, Warm Peripheral Pulses: 3+ Radial (R), 3+ Radial (L) Lymphatic: No Adenopathy Was a procedure done? Was a procedure done?: No Differential Dx Considerations may include: Coronary artery disease Electrolyte imbalance X-Ray, Labs, Meds, VS Vital Signs Date Time Temp Pulse Resp B/P (MAP) Pulse Ox O2 Delivery O2 Flow Rate FiO2 10/22/24 16:08 70 13 96 Room Air* 0 21 10/22/24 14:59 97.8 87 20 148/84 (105) 98 Current Medications Medications (Trade) Dose Ordered Sig/Jeremiah Route Start Time Stop Time Status Last Admin Sodium Chloride 1,000 ml @ 1,000 mls/hr Q1H ONCE IV 10/22/24 15:00 10/22/24 15:59 DC 10/22/24 15:00 Aspirin 325 mg ONCE ONCE PO 10/22/24 15:00 10/22/24 15:02 DC 10/22/24 16:21 Insulin Human Regular (InsuLIN R) 3 units ONCE ONCE IV 10/22/24 15:15 10/22/24 15:16 DC 10/22/24 16:20 Lorazepam (Ativan Inj) 1 mg ONCE ONCE IV 10/22/24 15:15 10/22/24 15:16 DC 10/22/24 15:15 Patient alert. Complaining of chest pain shortness a breath wanting to harm himself. Vitals stable. Answering all questions pain Had coronary artery bypass graft. Blood sugar elevated on arrival. Establish intravenous access. Was given fluids. Was given insulin. Unknown whether he is taking his medication. EKG reviewed does not show any acute changes. Was given aspirin. Explained to the patient. Continue cardiac monitoring. Time of 1ST Reevaluation: 15:18 Reevaluation 1ST: Unchanged Patient Education/Counseling: Diagnosis, Treatment, Prognosis Family Education/Counseling: Diagnosis, Treatment, Prognosis Departure 1 Departure Time of Disposition: 15:13 Impression: Primary Impression: Chest pain of unknown etiology Additional Impression: Uncontrolled diabetes mellitus Qualified Codes: E13.65 - Other specified diabetes mellitus with hyperglycemia Disposition: ADMITTED INPATIENT Admit to: Med Surg Condition: Guarded Critical Care Note Critical Care Time?: No Stability Stability form required: No I personally scribed for HUNG MORGAN MD ([email or web address]) on 10/22/24 at 15:00. Electronically submitted by Gabriel Farr ([email or web address]). HUNG MORGAN MD Oct 22, 2024 15:00
[2024-10-22] MEDS: LORazepam 2MG/ML-1ML VIAL IV ONE (15:15)
[2024-10-22 16:08] VITALS: PULSE 70; RESP 13; O2SAT 96
--- NOTE | 2024-10-22 16:18 | ECG ---
[facility] Test Date: 2024-10-22 Test Time: 14:57:20 Pat Name: ARSALAN LAYTON Department: er Room: 0223T Gender: M Ingredient Scaler: vito : 1970 Requested By: HUNG MORGAN Order Number: [id number] Reading MD: Felipe Huffman Measurements Intervals [place] Rate: 72 P: -2 OR: 143 QRS: 97 QRSD: 108 T: 18 QT: 408 QTc: 447 Interpretive Statements Sinus rhythm Left posterior fascicular block ST elevation suggests acute pericarditis Electronically Signed On 10-25-2024 21:54:51 PST by Felipe Huffman Please click the below link to view image of tracing.
[2024-10-22] MEDS: InsuLIN REG 1unit/0.01ml Soln (100units/ml) IV ONE (16:20)
--- NOTE | 2024-10-22 16:34 | DVH ---
CHEST RADIOGRAPH Indication: sob Technique: Single frontal view of the chest was obtained Comparison: None FINDINGS: Lines and Tubes: None Lungs: Right perihilar and right lower lobe infiltrate and atelectasis. Appears to be a left perihila r infiltrate as well. Findings may represent bronchitis. Pleura: No effusion. No pneumothorax. Cardiomediastinal contours: Unremarkable Bones: No acute osseous abnormality. IMPRESSION: Bilateral perihilar infiltrates with infiltrate and volume loss in the right base. Findings may repre sent bronchitis other possibilities may represent mild congestive failure correlate clinically.
[2024-10-22 17:28] LABS: Basophils # (auto) 0.1 10 ^3/uL (0-0.2); Basophils % (auto) 1.4 % (0.0-2.0); Eosinophils # (auto) 0.5 10 ^3/uL (0-0.8); Eosinophils % (auto) 7.5 % (0.0-7.0); Hematocrit 46.8 % (41.0-53.0); Hemoglobin 15.6 g/dL (13.5-17.5); Lymphocytes # (auto) 3.2 10 ^3/uL (0.4-5.4); Lymphocytes % (auto) 48.8 % (10.0-50.0); Mean Corpuscular Hgb Conc. 33.4 g/dL (32.0-36.0); Mean Corpuscular Volume 86.8 fL (80.0-100.0); Monocytes # (auto) 0.4 10 ^3/uL (0-1.3); Monocytes % (auto) 6.6 % (0.0-12.0); Neutrophils # (auto) 2.3 10 ^3/uL (1.6-8.6); Neutrophils % (auto) 35.7 % (37.0-80.0); Nucleated Red Blood Cells % 0.1 %; Platelet Count (auto) 210 10^3/uL (140-450); Red Blood Cells 5.39 10^6/uL (4.5-5.90); Red Cell Distribution Width 14.3 % (11.8-14.3); White Blood Cell 6.5 10^3/uL (4.4-10.8)
[2024-10-22 17:37] LABS: Chloride 102 mmol/L (98-107); Potassium 3.3 mmol/L (3.5-5.1); Sodium 135 mmol/L (136-145)
[2024-10-22 17:38] LABS: Anion Gap 13 (5-15); Calcium 9.4 mg/dL (8.7-10.4)
[2024-10-22 17:43] LABS: BUN/Creatinine Ratio 10.1 (10.0-20.0)
[2024-10-22 17:44] LABS: Blood Urea Nitrogen 8 mg/dL (9-23); Carbon Dioxide 20 mmol/L (20-31); Glucose 311 mg/dL (74-106)
[2024-10-22] MEDS ORDERED: DOCUSATE SOD 100 MG CAP PO PRN (18:15)
[2024-10-22] MEDS ORDERED: hydrALAZINE HCL 20 MG/ML VL IV PRN (18:15)
[2024-10-22] MEDS ORDERED: NITROGLYCERIN 0.4 MG SL TAB SL PRN (18:15)
[2024-10-22] MEDS ORDERED: ONDANSETRON HCL 4 MG/2 ML VIAL IV PRN (18:15)
[2024-10-22] MEDS ORDERED: DEXTROSE (50%) 50ML SYRG IV PRN (18:15)
--- NOTE | 2024-10-22 18:28 | DVHHP2 ---
History of Present Illness Reason for Visit: Acute chest pain History of Present Illness The patient is a 54-year-old male with past medical history of Coronary artery disease, DM, hypertension, hyperlipidemia, and bipolar disorder who presented to [facility] ED with complaint of chest pain. Patient reports symptoms progressively get worse with substernal chest pain, nonradiating, described as pressure, rating 7/10 numeric scale, associated hallucination, suicidal ideation with plans drug overdose, getting worse that prompted this visit. Patient was seen and evaluated in the ED, laboratory data shows WBC 6.5, platelets 210, sodium 135, potassium 3.3, BUN 8, creatinine 0.79, GFR 104, glucose 311, troponin 6, blood pressure 100/53, heart rate 70, temperature 97.8 F, O2 saturation 96% on room air. Chest x-ray revealed bilateral perihilar infiltrates with infiltrate and volume loss in the right base. Patient was given aspirin 325 mg p.o. x1, started on IV antibiotic regimen azithromycin, please see medication orders section in the computer. On my assessment, patient denies chest pain at this moment, no headache, no dizziness, no shortness of breaths, no nausea, no vomiting, no fever, no chills, able to contract for safety. Patient was admitted for further evaluation and medical management. Past Medical History CAD, DM, High Lipids, HTN, Bipolar Disorder Past Surgical History CABG Family History Reviewed, noncontributory to the management of this case. Past Social History The patient lives at home, denies smoking, alcohol or illicit drugs abuse. Review of Systems Constitutional: Yes: Weakness; No: Fever, Chills, Sweats, Malaise, Other Eyes: No: Pain, Vision change, Conjunctivae inflammation, Eyelid inflammation, Other, Redness ENT: No: Ear pain, Ear discharge, Nose pain, Nose discharge, Nose congestion, Mouth pain, Mouth swelling, Throat pain, Throat swelling, Other Respiratory: No: Cough, Dry, Shortness of breath, SOB with excertion, Wheezing, Hemoptysis, Pleuritic Pain, Sputum, Wheezing, Other Cardiovascular: Chest Pain; No: Palpitations, Orthopnea, Paroxysmal Noc. Dyspnea, Edema, Lt Headedness, Other Gastrointestinal: No: Nausea, Vomiting, Abdominal Pain, Diarrhea, Constipation, Melena, Hematochezia, Other Genitourinary: No Dysuria, No Frequency, No Incontinence, No Hematuria, No Retention, No Other Musculoskeletal: No: other, neck pain, shoulder pain, arm pain, back pain, hand pain, leg pain, foot pain Skin: No: Rash, Lesions, Jaundice, Bruising, Other Neurological: No: Weakness, Numbness, Incoordination, Change in speech, Confusion, Seizures, Other Allergies: Coded Allergies: NO KNOWN ALLERGIES (Unverified , 09/10/24) Medications Current Medications Medications Dose Ordered Sig/Jeremiah Route Start Time Stop Time Status Last Admin Dose Admin Aspirin 81 mg DAILY PO 10/23/24 10:00 Atorvastatin Calcium 20 mg HS PO 10/22/24 22:00 Lorazepam 1 mg Q8HP PRN IV 10/22/24 18:15 Diagnostic Test (Pha) 1 strip IQ4HR 10/22/24 20:00 Insulin Human Regular IQ4HR SC 10/22/24 20:00 Dextrose 50 ml UD PRN IV 10/22/24 18:15 Sodium Chloride 1,000 ml @ 60 mls/hr [id number] IV 10/22/24 18:15 Acetaminophen/ Hydrocodone Bitart 1 tab Q4HP PRN PO 10/22/24 18:15 Ondansetron HCl 4 mg Q4HP PRN IV 10/22/24 18:15 Docusate Sodium 100 mg BIDPRN PRN PO 10/22/24 18:15 Acetaminophen 650 mg Q6HP PRN PO 10/22/24 18:15 Nitroglycerin 0.4 mg Q5MINP PRN SL 10/22/24 18:15 Morphine Sulfate 2 mg Q30M PRN IV 10/22/24 18:15 Hydralazine HCl 10 mg Q6HP PRN IV 10/22/24 18:15 Exam Vital Signs Vital Signs Date Time Temp Pulse Resp B/P (MAP) Pulse Ox O2 Delivery O2 Flow Rate FiO2 10/22/24 18:08 75 10/22/24 16:08 13 96 Room Air* 0 21 10/22/24 16:00 100/53 (69) 10/22/24 14:59 97.8 General Appearance: Alert, Oriented X3, Cooperative, No acute distress HEENT: Atraumatic, PERRLA, EOMI, Mucous membr. moist/pink Respiratory: Clear to auscultation, Normal air movement Cardiovascular: Regular rate, Normal S1, Normal S2, No murmurs Abdominal: Normal bowel sounds, Soft, No tenderness, No hepatospenomegaly, No masses Extremities: No clubbing, No cyanosis, No edema, Normal pulses, No tenderness/swelling Skin: No rashes, No breakdown, No significant lesion Neuro: Normal speech, Normal tone, Sensation intact, Cranial nerves 3-12 NL, Reflexes 2+, Other (Generalized weakness) Psych/Mental Status: Mental status NL, Mood NL Labs/Xrays Labs Test 10/22/24 17:18 Range/Units White Blood Count 6.5 4.4-10.8 10^3/uL Red Blood Count 5.39 4.5-5.90 10^6/uL Hemoglobin 15.6 13.5-17.5 g/dL Hematocrit 46.8 41.0-53.0 % Mean Corpuscular Volume 86.8 80.0-100.0 fL Mean Corpuscular Hemoglobin 29.0 28.0-32.0 pg Mean Corpuscular Hemoglobin Concent 33.4 32.0-36.0 g/dL Red Cell Distribution Width 14.3 11.8-14.3 % Platelet Count 210 140-450 10^3/uL Mean Platelet Volume 9.3 6.9-10.8 fL Neutrophils (%) (Auto) 35.7 L 37.0-80.0 % Lymphocytes (%) (Auto) 48.8 10.0-50.0 % Monocytes (%) (Auto) 6.6 0.0-12.0 % Eosinophils (%) (Auto) 7.5 H 0.0-7.0 % Basophils (%) (Auto) 1.4 0.0-2.0 % Neutrophils # (Auto) 2.3 1.6-8.6 10 ^3/uL Lymphocytes # (Auto) 3.2 0.4-5.4 10 ^3/uL Monocytes # (Auto) 0.4 0-1.3 10 ^3/uL Eosinophils # (Auto) 0.5 0-0.8 10 ^3/uL Basophils # (Auto) 0.1 0-0.2 10 ^3/uL Nucleated Red Blood Cells 0.1 % Sodium Level 135 L 136-145 mmol/L Potassium Level 3.3 L 3.5-5.1 mmol/L Chloride Level 102 98-107 mmol/L Carbon Dioxide Level 20 20-31 mmol/L Anion Gap 13 5-15 Blood Urea Nitrogen 8 L 9-23 mg/dL Creatinine 0.79 0.700-1.30 mg/dL Glomerular Filtration Rate Calc 104 >90 mL/min BUN/Creatinine Ratio 10.1 10.0-20.0 Serum Glucose 311 H 74-106 mg/dL Calcium Level 9.4 8.7-10.4 mg/dL Troponin I High Sensitivity 6 </=54 ng/L PATIENT: ARSALAN LAYTON ACCT: [id number] UNIT: [id number] : 1970 LOC: ER ROOM / BED: / AGE / SEX: 54 / M ADM STATUS: REG ER SERVICE 1452 ORDERING PHYSICIAN: HUNG MORGAN MD PROCEDURE(s): CXRP - CHEST PORTABLE REASON: sob ORDER NUMBER(s): [id number], ACCESSION NUMBER(s): [id number] CHEST RADIOGRAPH Indication: sob Technique: Single frontal view of the chest was obtained Comparison: None FINDINGS: Lines and Tubes: None Lungs: Right perihilar and right lower lobe infiltrate and atelectasis. Appears to be a left perihilar infiltrate as well. Findings may represent bronchitis. Pleura: No effusion. No pneumothorax. Cardiomediastinal contours: Unremarkable Bones: No acute osseous abnormality. IMPRESSION: Bilateral perihilar infiltrates with infiltrate and volume loss in the right base. Findings may represent bronchitis other possibilities may represent mild congestive failure correlate clinically. Assessment/Plan Assessment/Plan Acute chest pain Suicidal ideation Generalized weakness Hypokalemia Diabetes mellitus with hyperglycemia Pneumonia, unspecified organisms Plan 1. Admit to telemetry unit 2. Breathing treatment 3. Pain control management 4. IV antibiotic management 5. Management of fluids and electrolytes 6. Consultation for Cardiology/psychiatry 7. Diagnostic test chest x-ray 8. DVT prophylaxis-on aspirin 9. Repeat labs CBC, CMP in a.m. 10. Monitor patient Q 1 hour for safety 11. Continue with current medical management 12. Treatment plan discussed with patient and RN. Patient verbalized understanding. Plan discussed with: Patient, Other (RN) My Orders Orders - ESTEVAN BROWN DNP Procedure Category Date Status Time Aspirin Tablet PHA 10/23/24 In Process 10:00 Atorvastatin (Lipitor) PHA 10/22/24 In Process 22:00 Lorazepam 2mg/Ml Inj PHA 10/22/24 In Process (Ativan Inj) 18:15 Consistent DIET 10/22/24 Transmitted Carb(Ccho)Diabetes Dinner Glucose Blood PHA 10/22/24 In Process (Accu-Chek Comfort 20:00 Insulin R (Human) PHA 10/22/24 In Process (Insulin R) 20:00 Dextrose 50% Syringe PHA 10/22/24 In Process 18:15 Admit ADMIT 10/22/24 Transmitted 18:11 Allergies AYLA 10/22/24 In Process 18:11 Code Status CODE 10/22/24 Transmitted 18:11 Sodium Chloride 0.9% PHA 10/22/24 In Process 18:15 Oxygen Per Hour RT 10/22/24 Transmitted 18:11 Hydrocodone-Acet PHA 10/22/24 In Process 5/325mg Tab ([place] 18:15 Ondansetron Hcl PHA 10/22/24 In Process (Zofran) 18:15 Docusate Sodium PHA 10/22/24 In Process Capsule (Colace 18:15 Complete Blood Count LAB 10/23/24 Verified 04:00 Comprehensive LAB 10/23/24 Verified Metabolic Panel 04:00 Condition: Serious AYLA 10/22/24 In Process 18:11 Acetaminophen Tablet PHA 10/22/24 In Process (Tylenol Tablet) 18:15 Bedrest With Bathroom AYLA 10/22/24 In Process Privileg 18:11 Sequential AYLA 10/22/24 In Process Compression Device Nitroglycerin PHA 10/22/24 In Process Sublingual (Ntrostat 18:15 Morphine Sulfate PHA 10/22/24 In Process Injection 18:15 Notify Of Changes AYLA 10/22/24 In Process From Base 18:11 Dam Worker For AYLA 10/22/24 In Process 24 Hours 18:11 Emergency Dysrhythmia AYLA 10/22/24 In Process Protocol 18:11 Rhythm Strips Once AYLA 10/22/24 In Process Every Shift 18:11 Oxygen By Nasal RT 10/22/24 Transmitted Cannula 18:11 Hydralazine Injection PHA 10/22/24 In Process (Apresoline Inject 18:15 Azithromycin 500mg/ PHA 10/23/24 Verified 250ml (Zithromax 50 10:00 Azithromycin 500mg/ PHA 10/22/24 Verified 250ml (Zithromax 50 18:30 Problem List: (1) Acute chest pain (2) Suicidal ideation (3) Hypokalemia (4) Generalized weakness (5) Diabetes mellitus with hyperglycemia (6) Pneumonia, unspecified organism Date of Service: Oct 22, 2024 Billing Provider: ESTEVAN BROWN DNP Common Visit Codes: [id number] INP/OBS CARE (HIGH) ESTEVAN BROWN DNP Oct 22, 2024 18:28
[2024-10-22] MEDS: SODIUM CHLORIDE 0.9% 1,000 ML IV SCH (18:39)
[2024-10-22] MEDS: AZITHROMYCIN 500MG/ 250ML 250 ML IV ONE (18:44)
[2024-10-22] MEDS: LORazepam 2MG/ML-1ML VIAL IV PRN (19:02)
[2024-10-22 19:33] VITALS: PULSE 97; RESP 19; O2SAT 99
[2024-10-22] MEDS: ACCU-CHEK COMFORT CURVE STRIP VI SCH (20:00)
[2024-10-22] MEDS: InsuLIN REG 1unit/0.01ml Soln (100units/ml) SC SCH (20:02)
[2024-10-22] MEDS: traZODone HCL 50 MG TAB PO SCH (21:39)
[2024-10-22] MEDS: ATORVASTATIN 20 MG TAB PO SCH (21:40)
[2024-10-23 05:56] LABS: Basophils # (auto) 0 10 ^3/uL (0-0.2); Basophils % (auto) 0.7 % (0.0-2.0); Eosinophils # (auto) 0.4 10 ^3/uL (0-0.8); Eosinophils % (auto) 7.1 % (0.0-7.0); Hematocrit 50.5 % (41.0-53.0); Hemoglobin 16.7 g/dL (13.5-17.5); Lymphocytes # (auto) 1.7 10 ^3/uL (0.4-5.4); Mean Corpuscular Hemoglobin 28.6 pg (28.0-32.0); Mean Corpuscular Volume 86.7 fL (80.0-100.0); Monocytes # (auto) 0.4 10 ^3/uL (0-1.3); Neutrophils # (auto) 2.6 10 ^3/uL (1.6-8.6); Neutrophils % (auto) 51.2 % (37.0-80.0); Nucleated Red Blood Cells % 0.2 %; Platelet Count (auto) 224 10^3/uL (140-450); Red Blood Cells 5.83 10^6/uL (4.5-5.90)
[2024-10-23 06:07] LABS: Alanine Aminotransferase 16 U/L (7-40); Albumin 4.1 g/dL (3.2-4.8); Anion Gap 8 (5-15); BUN/Creatinine Ratio 7.5 (10.0-20.0); Calcium 9.5 mg/dL (8.7-10.4); Carbon Dioxide 24 mmol/L (20-31); Chloride 105 mmol/L (98-107); Potassium 3.8 mmol/L (3.5-5.1); Sodium 137 mmol/L (136-145)
[2024-10-23 06:08] LABS: Bilirubin, Total 0.7 mg/dL (0.2-1.0); Total Protein 6.5 g/dL (5.7-8.2)
[2024-10-23 06:11] LABS: Alkaline Phosphatase 134 U/L (46-116); Aspartate Aminotransferase 13 U/L (13-40); Blood Urea Nitrogen 5 mg/dL (9-23); Glucose 219 mg/dL (74-106)
[2024-10-23 08:00] VITALS: PULSE 88; RESP 12; O2SAT 95
[2024-10-23] MEDS: ASPirin 81 mg TAB PO SCH (10:00)
[2024-10-23] MEDS: AZITHROMYCIN 500MG/ 250ML 250 ML IV SCH (10:58)
[2024-10-23] MEDS: FUROSEMIDE 20 MG/2 ML VIAL IV ONE (13:59)
--- NOTE | 2024-10-23 15:00 | DVHPN2 ---
Subjective Patient reports having and chest pressure generalized weakness. Reviewed: Care Plan, H&P, Labs, Medications Changes from previous H/P or p: No Changes General: Per HPI Eyes: No Pain, No Vision change, No Conjunctivae inflammation, No Eyelid inflammation, No Other, No Redness ENT: No Ear pain, No Ear discharge, No Nose pain, No Nose discharge, No Nose congestion, No Mouth pain, No Mouth swelling, No Throat pain, No Throat swelling, No Other Cardiovascular: Chest Pain; No Palpitations, No Orthopnea, No Paroxysmal Noc. Dyspnea, No Edema, No Lt Headedness, No Other Respiratory: No Cough, No Dry, No Shortness of breath, No SOB with excertion, No Wheezing, No Hemoptysis, No Pleuritic Pain, No Sputum, No Other Gastrointestinal: No Nausea, No Vomiting, No Abdominal Pain, No Diarrhea, No Constipation, No Melena, No Hematochezia, No Other Genitourinary: No Dysuria, No Frequency, No Incontinence, No Hematuria, No Retention, No Other Musculoskeletal: No other, No neck pain, No shoulder pain, No arm pain, No back pain, No hand pain, No leg pain, No foot pain Skin: No Rash, No Lesions, No Jaundice, No Bruising, No Other Objective Vitals Vital Signs Date Time Temp Pulse Resp B/P (MAP) Pulse Ox O2 Delivery O2 Flow Rate FiO2 10/23/24 14:00 98.0 89 18 140/85 (103) 95 98.0 10/23/24 08:00 Nasal Cannula* 2 28 Intake/Output Intake and Output 10/23/24 07:00 Intake Total 2095 ml Output Total 450 ml Balance 1645 ml Intake Oral 0 ml IV Total 2095 ml Output Urine Total 450 ml General Appearance: Alert, Oriented X3, Cooperative, mild distress HEENT: Atraumatic, PERRLA Lungs: Clear to auscultation, Normal air movement Cardiovascular: Normal S1, Normal S2 Abdomen: Normal bowel sounds, Soft, No tenderness, No masses Musculoskeletal: Normal sensory function, Normal motor function Neuro: Normal gait, Normal speech Psych/Mental Status: Mental status NL, Mood NL Medications Current Medications Medications Dose Ordered Sig/Jeremiah Route Start Time Stop Time Status Last Admin Dose Admin Aspirin 81 mg DAILY PO 10/23/24 10:00 Atorvastatin Calcium 20 mg HS PO 10/22/24 22:00 10/22/24 21:40 20 MG Lorazepam 1 mg Q8HP PRN IV 10/22/24 18:15 10/23/24 08:33 1 MG Diagnostic Test (Pha) 1 strip IQ4HR 10/22/24 20:00 10/23/24 13:43 1 STRIP Insulin Human Regular IQ4HR SC 10/22/24 20:00 10/23/24 13:50 6 UNITS Dextrose 50 ml UD PRN IV 10/22/24 18:15 Sodium Chloride 1,000 ml @ 60 mls/hr [id number] IV 10/22/24 18:15 10/22/24 18:39 60 MLS/HR Acetaminophen/ Hydrocodone Bitart 1 tab Q4HP PRN PO 10/22/24 18:15 Ondansetron HCl 4 mg Q4HP PRN IV 10/22/24 18:15 Docusate Sodium 100 mg BIDPRN PRN PO 10/22/24 18:15 Acetaminophen 650 mg Q6HP PRN PO 10/22/24 18:15 Nitroglycerin 0.4 mg Q5MINP PRN SL 10/22/24 18:15 Morphine Sulfate 2 mg Q30M PRN IV 10/22/24 18:15 Hydralazine HCl 10 mg Q6HP PRN IV 10/22/24 18:15 Azithromycin 250 ml @ 125 mls/hr DAILY IV 10/23/24 10:00 10/23/24 10:58 125 MLS/HR Trazodone HCl 100 mg HS PO 10/22/24 22:00 10/22/24 21:39 100 MG Laboratory Results Laboratory Tests 10/23/24 05:15 Chemistry Test 10/22/24 17:18 10/23/24 05:15 Calcium Level 9.4 mg/dL (8.7-10.4) 9.5 mg/dL (8.7-10.4) Albumin 4.1 g/dL (3.2-4.8) Total Protein 6.5 g/dL (5.7-8.2) Cardiac Markers Test 10/23/24 05:15 B-Type Natriuretic Peptide Pending LFT Test 10/23/24 05:15 Alanine Aminotransferase (ALT) 16 U/L (7-40) Alkaline Phosphatase 134 U/L (46-116) H Aspartate Amino Transferase (AST) 13 U/L (13-40) Total Bilirubin 0.7 mg/dL (0.2-1.0) HgA1c, TSH Test 10/23/24 05:15 Hemoglobin A1c Pending Labs and/or images reviewed: Labs reviewed by me, Image(s) reviewed by me Assessment/Plan Assessment/Plan Impression: -history of CAD, rule out ACS -alcohol withdrawal -alcoholism -diabetes mellitus -obesity -dyslipidemia -medication noncompliance -probable acute pulmonary vascular congestion from systolic failure Plan: -IV diuresis -repeat troponin EKG -start Librium 10 mg p.o. q.6 hours -regular insulin sliding scale -continue antibiotic therapy, possible discontinue tomorrow with improvement with chest x-ray -continue statin -repeat labs in a.m. Total time spent with patient discussing and formulating plan of care: 35 minutes. This medical document was created using an electronic medical record system with [employer] dictation system. Although this document has been carefully reviewed, there may still be some phonetic and typographical errors. These areas are purely typographical due to imperfections of the software programs, and do not reflect any compromise in the patient's medical care. Plan discussed with: Patient, Other (RN) My Orders Orders - GALLITO GIBSON NP Procedure Category Date Status Time Troponin-I Hs LAB 10/23/24 In Process 13:46 Troponin-I Hs LAB 10/23/24 In Process 14:46 Troponin-I Hs LAB 10/23/24 Logged 16:46 Electrocardigram EKG 10/23/24 Logged 13:46 Hemoglobin A1c LAB 10/23/24 In Process 13:46 Basic Metabolic Panel LAB 10/24/24 Verified 04:00 B-Type Natriuretic LAB 10/23/24 In Process Peptide 13:46 Date of Service: Oct 23, 2024 Billing Provider: GALLITO GIBSON NP Common Visit Codes: [id number] INP/OBS CARE(HIGH) GALLITO GIBSON NP Oct 23, 2024 15:00
[2024-10-23 16:14] LABS: Amphetamine Screen, Urine Neg (NEGATIVE); Barbiturate Scree,Urine Neg (NEGATIVE); Benzodiazephine Screen, Urine Neg (NEGATIVE); Cannabinoid Screen, Urine Pos (NEGATIVE); Cocaine Screen, Urine Neg (NEGATIVE); Opiate Scree,Urine Neg (NEGATIVE); Phencyclidine Screen, Urine Neg (NEGATIVE)
[2024-10-23] MEDS: chlordiazePOXIDE HCL 5 MG CAP PO SCH (17:05)
[2024-10-23 19:15] VITALS: PULSE 81; RESP 22; O2SAT 95
[2024-10-23 22:13] VITALS: PULSE 82; RESP 20; O2SAT 95
[2024-10-23 22:38] VITALS: BP 140/87; PULSE 81; RESP 20; TEMP 97.6; O2SAT 95
[2024-10-23 23:07] VITALS: BP 140/87; PULSE 81; RESP 20; TEMP 97.6; O2SAT 95
[2024-10-24] VITALS (7 sets, daily range): BP systolic 115–131; BP diastolic 60–92; PULSE 69–84; RESP 18–20; TEMP 97.3–98.8; O2SAT 92–97
--- NOTE | 2024-10-24 05:26 | DVH ---
CHEST RADIOGRAPH Indication: chf, pna Technique: Single frontal view of the chest was obtained Comparison: XY CHEST PORTABLE on DOS: 10/22/24 FINDINGS: Lines and Tubes: None Lungs: Subsegmental atelectasis in the right midlung. Lungs are otherwise clear. Pleura: No effusion. No pneumothorax. Cardiomediastinal contours: Unremarkable Bones: No acute osseous abnormality. Status post median sternotomy. IMPRESSION: 1. Subsegmental atelectasis in the right midlung.
[2024-10-24 07:44] LABS: Chloride 102 mmol/L (98-107); Potassium 3.5 mmol/L (3.5-5.1)
[2024-10-24 07:45] LABS: Anion Gap 7 (5-15); Calcium 9.2 mg/dL (8.7-10.4); Carbon Dioxide 25 mmol/L (20-31)
[2024-10-24 07:50] LABS: BUN/Creatinine Ratio 10.3 (10.0-20.0)
[2024-10-24 07:57] LABS: Blood Urea Nitrogen 8 mg/dL (9-23); Glucose 297 mg/dL (74-106); Sodium 134 mmol/L (136-145)
[2024-10-24] MEDS ORDERED: DEXTROSE (50%) 50ML SYRG IV PRN (12:00)
[2024-10-24] MEDS: MORPHINE SULFATE INJ 2 MG/ml SYRG IV PRN (12:45)
[2024-10-24] MEDS: INSULIN LANTUS (GLARGINE) 1 /0.01ml (100units/ml) SC SCH (14:45)
--- NOTE | 2024-10-24 14:59 | DVHPN2 ---
Subjective Patient reports having chest pain in right chest. Reviewed: Care Plan, H&P, Labs, Medications Changes from previous H/P or p: No Changes General: Per HPI Eyes: No Pain, No Vision change, No Conjunctivae inflammation, No Eyelid inflammation, No Other, No Redness ENT: No Ear pain, No Ear discharge, No Nose pain, No Nose discharge, No Nose congestion, No Mouth pain, No Mouth swelling, No Throat pain, No Throat swelling, No Other Cardiovascular: Chest Pain; No Palpitations, No Orthopnea, No Paroxysmal Noc. Dyspnea, No Edema, No Lt Headedness, No Other Respiratory: No Cough, No Dry, No Shortness of breath, No SOB with excertion, No Wheezing, No Hemoptysis, No Pleuritic Pain, No Sputum, No Other Gastrointestinal: No Nausea, No Vomiting, No Abdominal Pain, No Diarrhea, No Constipation, No Melena, No Hematochezia, No Other Genitourinary: No Dysuria, No Frequency, No Incontinence, No Hematuria, No Retention, No Other Musculoskeletal: No other, No neck pain, No shoulder pain, No arm pain, No back pain, No hand pain, No leg pain, No foot pain Skin: No Rash, No Lesions, No Jaundice, No Bruising, No Other Objective Vitals Vital Signs Date Time Temp Pulse Resp B/P (MAP) Pulse Ox O2 Delivery O2 Flow Rate FiO2 10/24/24 12:45 82 18 130/86 10/24/24 12:01 95 10/24/24 08:32 98.8 98.8 10/24/24 08:20 Nasal Cannula* 2 28 Intake/Output Intake and Output 10/24/24 07:00 Intake Total 1200 ml Balance 1200 ml Intake Oral 230 ml IV Total 970 ml General Appearance: Alert, Oriented X3, Cooperative, mild distress HEENT: Atraumatic, PERRLA Lungs: Clear to auscultation, Normal air movement Cardiovascular: Normal S1, Normal S2 Abdomen: Normal bowel sounds, Soft, No tenderness, No masses Musculoskeletal: Normal sensory function, Normal motor function Neuro: Normal gait, Normal speech Psych/Mental Status: Mental status NL, Mood NL Medications Current Medications Medications Dose Ordered Sig/Jeremiah Route Start Time Stop Time Status Last Admin Dose Admin Aspirin 81 mg DAILY PO 10/23/24 10:00 10/24/24 09:50 81 MG Atorvastatin Calcium 20 mg HS PO 10/22/24 22:00 10/23/24 23:03 20 MG Lorazepam 1 mg Q8HP PRN IV 10/22/24 18:15 10/24/24 07:55 1 MG Acetaminophen/ Hydrocodone Bitart 1 tab Q4HP PRN PO 10/22/24 18:15 Ondansetron HCl 4 mg Q4HP PRN IV 10/22/24 18:15 Docusate Sodium 100 mg BIDPRN PRN PO 10/22/24 18:15 Acetaminophen 650 mg Q6HP PRN PO 10/22/24 18:15 Nitroglycerin 0.4 mg Q5MINP PRN SL 10/22/24 18:15 Morphine Sulfate 2 mg Q30M PRN IV 10/22/24 18:15 10/24/24 12:45 2 MG Hydralazine HCl 10 mg Q6HP PRN IV 10/22/24 18:15 Azithromycin 250 ml @ 125 mls/hr DAILY IV 10/23/24 10:00 10/24/24 09:43 125 MLS/HR Trazodone HCl 100 mg HS PO 10/22/24 22:00 10/23/24 23:02 100 MG Diagnostic Test (Pha) 1 strip ACHS 10/24/24 17:00 Insulin Human Regular AC SC 10/24/24 17:00 Insulin Human Regular HS SC 10/24/24 22:00 Dextrose 50 ml UD PRN IV 10/24/24 12:00 Insulin Glargine 10 units DAILY@1000 SC 10/24/24 14:45 UNV Chlordiazepoxide HCl 25 mg QID PO 10/24/24 18:00 UNV Laboratory Results Laboratory Tests 10/23/24 05:15 10/24/24 07:05 Chemistry Test 10/24/24 07:05 Calcium Level 9.2 mg/dL (8.7-10.4) Labs and/or images reviewed: Labs reviewed by me, Image(s) reviewed by me Assessment/Plan Assessment/Plan Impression: -history of CAD, rule out ACS -alcohol withdrawal -alcoholism -diabetes mellitus -obesity -dyslipidemia -medication noncompliance -probable acute pulmonary vascular congestion from systolic failure Plan: Events: Pleuritic chest pain from atelectasis and coughing. Trial of Toradol. OOB and IS. Pt states he is not welcome back at previous living arrangements. SS consult -IV diuresis -repeat troponin EKG: Unremarkable. -start Librium 10 mg p.o. q.6 hours -regular insulin sliding scale -continue antibiotic therapy -continue statin -repeat labs in a.m. Total time spent with patient discussing and formulating plan of care: 35 minutes. This medical document was created using an electronic medical record system with [employer] dictation system. Although this document has been carefully reviewed, there may still be some phonetic and typographical errors. These areas are purely typographical due to imperfections of the software programs, and do not reflect any compromise in the patient's medical care. Plan discussed with: Patient, Other (RN) My Orders Orders - GALLITO GIBSON NP Procedure Category Date Status Time * Cylinder Honer CONS 10/23/24 Transmitted Consult Chest Portable XY 10/24/24 Resulted 04:00 Glucose Blood PHA 10/24/24 In Process (Accu-Chek Comfort 17:00 Insulin R (Human) PHA 10/24/24 In Process (Insulin R) 17:00 Insulin R (Human) PHA 10/24/24 In Process (Insulin R) 22:00 Dextrose 50% Syringe PHA 10/24/24 In Process 12:00 Electrocardigram EKG 10/24/24 Logged 12:03 Insulin Lantus PHA 10/24/24 Logged (Glargine) (Lantus) 14:45 Chlordiazepoxide Hcl PHA 10/24/24 Logged Capsule (Librium Ca 18:00 Ketorolac Injection PHA 10/24/24 Logged (Toradol Injection) 15:00 Date of Service: Oct 24, 2024 Billing Provider: GALLITO GIBSON NP Common Visit Codes: [id number] INP/OBS CARE(HIGH) GALLITO GIBSON NP Oct 24, 2024 14:59
[2024-10-24] MEDS: ACCU-CHEK COMFORT CURVE STRIP VI SCH (16:10)
[2024-10-24] MEDS: InsuLIN REG 1unit/0.01ml Soln (100units/ml) SC SCH ×2 (17:06→23:11)
[2024-10-24] MEDS: KETOROLAC TROMETH 30 MG/ML 1ML VIAL IV ONE (17:10)
[2024-10-24] MEDS: chlordiazePOXIDE HCL 5 MG CAP PO SCH (17:11)
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
[2024-10-25] VITALS (7 sets, daily range): BP systolic 110–145; BP diastolic 66–91; PULSE 70–80; RESP 16–19; TEMP 97.6–98.1; O2SAT 94–99
[2024-10-25] MEDS: HYDROcodone-ACET 5/325MG TAB PO PRN (05:07)
--- NOTE | 2024-10-25 09:51 | ECG ---
[facility] Test Date: 2024-10-24 Test Time: 12:21:52 Pat Name: ARSALAN LAYTON Department: Respiratoy Room: 0223T B Gender: M Heading Pinner: KERRI ZELAYA RN : 1970 Requested By: GALLITO GIBSON Order Number: [id number] Reading MD: Felipe Huffman Measurements Intervals [place] Rate: 79 P: -12 TN: 146 QRS: -13 QRSD: 106 T: 27 QT: 400 QTc: 459 Interpretive Statements Sinus rhythm Probable left atrial enlargement Abnormal R-wave progression, late transition Inferior infarct, old Electronically Signed On 10-25-2024 21:10:50 PST by Felipe Huffman Please click the below link to view image of tracing.
--- NOTE | 2024-10-25 11:58 | DVHDS2 ---
Discharge Summary Date of Admission Oct 22, 2024 at 18:11 Date of Discharge: Oct 25, 2024 Admitting Diagnosis Chest pain Labs/Diagnostic Data: Laboratory Results Test 10/25/24 10:18 10/24/24 07:05 10/23/24 17:05 10/23/24 05:15 POC Glucose 348 mg/dl (70-106) Sodium Level 134 mmol/L (136-145) Potassium Level 3.5 mmol/L (3.5-5.1) Chloride Level 102 mmol/L (98-107) Carbon Dioxide Level 25 mmol/L (20-31) Anion Gap 7 (5-15) Blood Urea Nitrogen 8 mg/dL (9-23) Creatinine 0.78 mg/dL (0.700-1.30) Glomerular Filtration Rate Calc 105 mL/min (>90) BUN/Creatinine Ratio 10.3 (10.0-20.0) Serum Glucose 297 mg/dL (74-106) Calcium Level 9.2 mg/dL (8.7-10.4) Troponin I High Sensitivity 5 ng/L (</=54) White Blood Count 5.0 10^3/uL (4.4-10.8) Red Blood Count 5.83 10^6/uL (4.5-5.90) Hemoglobin 16.7 g/dL (13.5-17.5) Hematocrit 50.5 % (41.0-53.0) Mean Corpuscular Volume 86.7 fL (80.0-100.0) Mean Corpuscular Hemoglobin 28.6 pg (28.0-32.0) Mean Corpuscular Hemoglobin Concent 33.0 g/dL (32.0-36.0) Red Cell Distribution Width 15.0 % (11.8-14.3) Platelet Count 224 10^3/uL (140-450) Mean Platelet Volume 9.6 fL (6.9-10.8) Neutrophils (%) (Auto) 51.2 % (37.0-80.0) Lymphocytes (%) (Auto) 34.0 % (10.0-50.0) Monocytes (%) (Auto) 7.0 % (0.0-12.0) Eosinophils (%) (Auto) 7.1 % (0.0-7.0) Basophils (%) (Auto) 0.7 % (0.0-2.0) Neutrophils # (Auto) 2.6 10 ^3/uL (1.6-8.6) Lymphocytes # (Auto) 1.7 10 ^3/uL (0.4-5.4) Monocytes # (Auto) 0.4 10 ^3/uL (0-1.3) Eosinophils # (Auto) 0.4 10 ^3/uL (0-0.8) Basophils # (Auto) 0 10 ^3/uL (0-0.2) Nucleated Red Blood Cells 0.2 % Hemoglobin A1c 11.8 % A1C (<5.7) Total Bilirubin 0.7 mg/dL (0.2-1.0) Aspartate Amino Transferase (AST) 13 U/L (13-40) Alanine Aminotransferase (ALT) 16 U/L (7-40) Alkaline Phosphatase 134 U/L (46-116) B-Type Natriuretic Peptide 110.04 pg/mL (0-100) Total Protein 6.5 g/dL (5.7-8.2) Albumin 4.1 g/dL (3.2-4.8) Test 10/23/24 00:37 Urine Opiates Screen Neg (NEGATIVE) Urine Fentanyl Screen Neg (NEGATIVE) Urine Barbiturates Screen Neg (NEGATIVE) Urine Phencyclidine Screen Neg (NEGATIVE) Urine Amphetamines Screen Neg (NEGATIVE) Urine Benzodiazepines Screen Neg (NEGATIVE) Urine Cocaine Screen Neg (NEGATIVE) Urine Cannabinoids Screen Pos (NEGATIVE) Other Laboratory Tests 10/24/24 07:05 10/23/24 05:15 Brief Hx & Hospital Course: History of Present Illness The patient is a 54-year-old male with past medical history of Coronary artery disease, DM, hypertension, hyperlipidemia, and bipolar disorder who presented to [facility] ED with complaint of chest pain. Patient reports symptoms progressively get worse with substernal chest pain, nonradiating, described as pressure, rating 7/10 numeric scale, associated hallucination, suicidal ideation with plans drug overdose, getting worse that prompted this visit. Patient was seen and evaluated in the ED, laboratory data shows WBC 6.5, platelets 210, sodium 135, potassium 3.3, BUN 8, creatinine 0.79, GFR 104, glucose 311, troponin 6, blood pressure 100/53, heart rate 70, temperature 97.8 F, O2 saturation 96% on room air. Chest x-ray revealed bilateral perihilar infiltrates with infiltrate and volume loss in the right base. Patient was given aspirin 325 mg p.o. x1, started on IV antibiotic regimen azithromycin, please see medication orders section in the computer. On my assessment, patient denies chest pain at this moment, no headache, no dizziness, no shortness of breaths, no nausea, no vomiting, no fever, no chills, able to contract for safety. Patient was admitted for further evaluation and medical management. Course of hospitalization: Patient was displaying symptoms of alcohol withdrawal. Patient was started on Librium with titration of Librium to 25 mg p.o. q.6 hours. Patient is symptoms have resolved with respect to auditory and visual hallucinations. Patient did report having high anxiety despite his improvement with his apparent delirium tremens. Psychiatry consultation was obtained given the patient has a significant history of multiple antipsychotics. Recommendations were reviewed. Given the patient was already on increase doses and on multiple antianxiety/antipsychotic medications, patient was recommend to continue all previous home medications. Patient was blood pressure is has been a challenge to control as while in the hospital, now improved with regular insulin sliding scale as well as Lantus. Patient was adamant they continue to have chest pain, located in his right chest. Troponins have been negative x4. EKGs have all been without any ST changes. Review of the patient's chest x-ray was performed with the patient which revealed right middle lobe atelectasis, with the patient having improvement with pain after receiving IV Toradol. Patient will be discharged back to his previous home residents. He was instructed to continue all of his home medications which have been reconciled. He was instructed to follow up with his PCP at next available appointment. Physical examination General: Alert and Oriented x3. No acute distress. Well-nourished. Eyes: EOMI. Anicteric. HENT: Moist mucous membranes. Lungs: Clear to auscultation bilaterally. No accessory muscle use. Cardiovascular: Regular rate and rhythm. No murmur. No JVD. Abdomen: Soft, non-tender and non-distended. No palpable masses. Extremities: No edema. Non-tender. Skin: No rashes or lesions. Warm. Neurologic: No focal neurological deficits. CN II-XII grossly intact, but not individually tested. Psychiatric: Cooperative. Appropriate mood and affect. Total time spent with patient discussing and formulating plan of care: 35 minutes. This medical document was created using an electronic medical record system with [email or web address] dictation system. Although this document has been carefully reviewed, there may still be some phonetic and typographical errors. These areas are purely typographical due to imperfections of the software programs, and do not reflect any compromise in the patient's medical care. Condition at Discharge: Poor Final Diagnosis/Problems List Chest pain secondary to atelectasis Secondary diagnosis: -history of CAD, rule out ACS -alcohol withdrawal -alcoholism -diabetes mellitus -obesity -dyslipidemia -medication noncompliance -probable acute pulmonary vascular congestion from systolic failure Discharge Disposition: Home Discharge Instruct/Medications Diet: Regular, Consistent carbohydrate Follow Up/Referral: PCP in 1-2 weeks Medications: Continue all previous home medications 36 Discharge Statement: "Patient was advised to return to the ER or call 911 if any headaches, dizziness, shortness of breath, chest pain, abdominal pain, bleeding, fevers, or worsening of medical condition. Patient was counseled about treatment plan, medications, possible side effects, patientverbalized understanding. All questions were answered to the best of my ability. This discharge took greater then 30 minutes in planning, reviewing documentation, counseling the patient, and discussing with other team members." ASSESSMENT ASSESSMENT Assessment Date of Service: Oct 25, 2024 Billing Provider: GALLITO GIBSON NP Common Visit Codes: [id number] DISCH DAY >30min GALLITO GIBSON NP Oct 25, 2024 11:58
[2024-10-26] VITALS (7 sets, daily range): BP systolic 109–139; BP diastolic 66–87; PULSE 73–87; RESP 17–20; TEMP 97.8–98.9; O2SAT 94–98
[2024-10-26] MEDS: INSULIN LANTUS (GLARGINE) 1 /0.01ml (100units/ml) SC SCH (11:19)
--- NOTE | 2024-10-26 12:40 | DVHPN2 ---
Subjective Patient now verbalizing suicidal ideation. When asked if he had a plan he states, he would walk in front of a train because that would be the quickest way. Reviewed: Care Plan, H&P, Labs, Medications Changes from previous H/P or p: Changes General: Per HPI Eyes: No Pain, No Vision change, No Conjunctivae inflammation, No Eyelid inflammation, No Other, No Redness ENT: No Ear pain, No Ear discharge, No Nose pain, No Nose discharge, No Nose congestion, No Mouth pain, No Mouth swelling, No Throat pain, No Throat swelling, No Other Cardiovascular: Chest Pain; No Palpitations, No Orthopnea, No Paroxysmal Noc. Dyspnea, No Edema, No Lt Headedness, No Other Respiratory: No Cough, No Dry, No Shortness of breath, No SOB with excertion, No Wheezing, No Hemoptysis, No Pleuritic Pain, No Sputum, No Other Gastrointestinal: No Nausea, No Vomiting, No Abdominal Pain, No Diarrhea, No Constipation, No Melena, No Hematochezia, No Other Genitourinary: No Dysuria, No Frequency, No Incontinence, No Hematuria, No Retention, No Other Musculoskeletal: No other, No neck pain, No shoulder pain, No arm pain, No back pain, No hand pain, No leg pain, No foot pain Skin: No Rash, No Lesions, No Jaundice, No Bruising, No Other Objective Vitals Vital Signs Date Time Temp Pulse Resp B/P (MAP) Pulse Ox O2 Delivery O2 Flow Rate FiO2 10/26/24 08:00 98.2 85 18 127/73 (91) 96 98.2 10/25/24 20:00 Nasal Cannula* 2 28 Intake/Output Intake and Output 10/26/24 07:00 Intake Total 1080 ml Output Total 1050 ml Balance 30 ml Intake Oral 1080 ml Output Urine Total 1050 ml # Bowel Movements 1 General Appearance: Alert, Oriented X3, Cooperative, mild distress HEENT: Atraumatic, PERRLA Lungs: Clear to auscultation, Normal air movement Cardiovascular: Normal S1, Normal S2 Abdomen: Normal bowel sounds, Soft, No tenderness, No masses Musculoskeletal: Normal sensory function, Normal motor function Neuro: Normal gait, Normal speech Psych/Mental Status: Mental status NL, Mood NL Medications Current Medications Medications Dose Ordered Sig/Jeremiah Route Start Time Stop Time Status Last Admin Dose Admin Aspirin 81 mg DAILY PO 10/23/24 10:00 10/26/24 10:00 81 MG Atorvastatin Calcium 20 mg HS PO 10/22/24 22:00 10/25/24 21:15 20 MG Lorazepam 1 mg Q8HP PRN IV 10/22/24 18:15 10/26/24 10:54 1 MG Acetaminophen/ Hydrocodone Bitart 1 tab Q4HP PRN PO 10/22/24 18:15 10/26/24 12:23 1 TAB Ondansetron HCl 4 mg Q4HP PRN IV 10/22/24 18:15 Docusate Sodium 100 mg BIDPRN PRN PO 10/22/24 18:15 Acetaminophen 650 mg Q6HP PRN PO 10/22/24 18:15 Nitroglycerin 0.4 mg Q5MINP PRN SL 10/22/24 18:15 Morphine Sulfate 2 mg Q30M PRN IV 10/22/24 18:15 10/24/24 12:45 2 MG Hydralazine HCl 10 mg Q6HP PRN IV 10/22/24 18:15 Azithromycin 250 ml @ 125 mls/hr DAILY IV 10/23/24 10:00 10/26/24 10:54 125 MLS/HR Trazodone HCl 100 mg HS PO 10/22/24 22:00 10/25/24 21:14 100 MG Diagnostic Test (Pha) 1 strip ACHS 10/24/24 17:00 10/26/24 06:45 1 STRIP Insulin Human Regular AC SC 10/24/24 17:00 10/26/24 06:47 12 UNITS Insulin Human Regular HS SC 10/24/24 22:00 10/25/24 21:46 8 UNITS Dextrose 50 ml UD PRN IV 10/24/24 12:00 Insulin Glargine 30 units DAILY@1000 SC 10/26/24 10:00 10/26/24 11:19 30 UNITS Laboratory Results Laboratory Tests 10/23/24 05:15 10/24/24 07:05 Labs and/or images reviewed: Labs reviewed by me, Image(s) reviewed by me Assessment/Plan Assessment/Plan Impression: -history of CAD, rule out ACS -alcohol withdrawal -alcoholism -diabetes mellitus -obesity -dyslipidemia -medication noncompliance -probable acute pulmonary vascular congestion from systolic failure Plan: Events: Now suicidal ideation as previously mentioned. Reconsult Psychiatry. Patient continues to have lower extremity neuropathy. We will restart Lyrica. -IV diuresis -repeat troponin EKG: Unremarkable. -increase Lantus to 30 units daily -regular insulin sliding scale -continue antibiotic therapy -continue statin -social service consultation for discharge planning Total time spent with patient discussing and formulating plan of care: 35 minutes. This medical document was created using an electronic medical record system with [employer] dictation system. Although this document has been carefully reviewed, there may still be some phonetic and typographical errors. These areas are purely typographical due to imperfections of the software programs, and do not reflect any compromise in the patient's medical care. Plan discussed with: Patient, Other (RN) My Orders Orders - GALLITO GIBSON NP Procedure Category Date Status Time Insulin Lantus PHA 10/26/24 In Process (Glargine) (Lantus) 10:00 *Tele Psych Consult CONS 10/26/24 Verified 12:36 * International Accounting Manager CONS 10/26/24 Verified Consult Amoxicillin/Clavulanate PHA 10/26/24 Verified Tablet (Augmenti 14:00 Pregabalin Capsule PHA 10/26/24 Verified (Lyrica Capsule) 14:00 Date of Service: Oct 26, 2024 Billing Provider: GALLITO GIBSON NP Common Visit Codes: [id number] INP/OBS CARE(HIGH) GALLITO GIBSON NP Oct 26, 2024 12:40
[2024-10-26] MEDS: PREGABALIN CAPSULE 75 MG CAP PO SCH (15:02)
[2024-10-26] MEDS: AMOXICILLIN/CLAVULAN 500 MG TAB PO SCH (23:08)
[2024-10-27] VITALS (7 sets, daily range): BP systolic 106–128; BP diastolic 59–79; PULSE 74–99; RESP 18–20; TEMP 98–98.2; O2SAT 92–96
--- NOTE | 2024-10-27 10:09 | ECG ---
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
[2024-10-27] MEDS ORDERED: GABA-339 PO (14:27)
--- NOTE | 2024-10-27 16:31 | DVHINCON2 ---
Date of service: Oct 27, 2024 Referring Physician KEYANA Barnes Reason for Consultation Medication management and disposition. History of Present Illness Chief complaint: "Honestly my alcohol abuse, my neuropathy and my heart issues". Interval history: This is a 54-year-old male who was seen for follow up via telepsychiatry. Patient reported having suicidal ideation stating "sometimes I do". When asked him if he has any plan he replied I know this place where a train comes by". He reported feeling depressed. He reported having trouble sleeping, loss of interest, energy low, has trouble content, appetite decreased and feels hopeless and worthless. He denied any homicidal ideation. He reported having auditory hallucination telling him "you are no good, you are worthless". He denied any visual hallucination. He denied feeling paranoid. He reported feeling anxious. Past psychiatric history: Patient reported that he has been hospitalized to inpatient psychiatric level of care. He reported that he has been diagnosed with bipolar disorder and schizophrenia. He reported two suicide attempts in the past. Past Medical History As per history and physical. Past Surgical History As per history and physical. Family History: Patient reports no known family medical history. Family History He denied any family history of any psychiatric illness. Social History Patient is single and has three children. Patient reported that he has SSDI. Allergies: Coded Allergies: NO KNOWN ALLERGIES (Unverified , 09/10/24) Home Meds Active Scripts Insulin Aspart (Insulin Aspart) 100 Unit/Ml Inj, 100 UNIT SC TIDWM for 30 Days, #1 INJ 4 Refills INSULIN PER SLIDING SCALE TID AC 150-200: 2 UNITS 201-250: 4 UNITS 251-300: 8 UNITS 301-350: 12 UNITS 351-400: 15 UNITS > 401 CALL DOCTOR Prov:JARON ZENDEJAS MD 09/13/24 Insulin Glargine (Lantus) 100 Unit/Ml Inj, 45 UNIT SC BID for 30 Days, #1 INJ 4 Refills Prov:JARON ZENDEJAS MD 09/13/24 Reported Medications Gabapentin (Gabapentin) 600 Mg Tab, 600 MG PO TID for 30 Days, MG 10/27/24 Insulin Aspart (Insulin Aspart Flexpen) 100 Unit/Ml Inj, 40 UNIT SC BID 09/11/24 Pregabalin (Lyrica) 75 Mg Cap, 1 CAP PO TID 09/11/24 Atorvastatin Calcium (ATORVASTATIN CALCIUM) 80 Mg Tab, 1 TAB PO DAILY 09/11/24 Lisinopril (Lisinopril) 20 Mg Tab, 20 MG PO BID 09/11/24 Metformin Hydrochloride (Metformin Hcl) 500 Mg Tab, 1000 MG PO BID 09/11/24 Escitalopram Oxalate (Lexapro) 10 Mg Tab, 1 TAB PO DAILY 09/11/24 Aripiprazole (Abilify) 20 Mg Tab, 15 MG PO DAILY 09/11/24 Trazodone Hcl (Trazodone Hcl) 150 Mg Tab, 1 TAB PO QPM 09/11/24 Review of Systems Review of systems is negative except HPI. Vital Signs Vital Signs Date Time Temp Pulse Resp B/P (MAP) Pulse Ox O2 Delivery O2 Flow Rate FiO2 10/27/24 08:00 Nasal Cannula* 2 28 10/27/24 08:00 77 10/27/24 05:00 98.2 18 106/59 (75) 96 98.2 Physical Exam Mental status examination: This is a 54-year-old male who appears older than his stated age. His grooming is marginal. His eye contact is good. His speech is rapid. He describes mood as "I have a lot of anxiety" and his affect is constricted. He reported having suicidal ideation with a plan. He denied any homicidal ideation. He reported auditory hallucination. He denied any visual hallucination. His thought processes circumstantial. He is oriented to place, person, year and month. His attention and concentration is impaired. His memory and language intact. His judgment and insight is limited. His impulse control is limited. His fund of knowledge is impaired. Labs/Diagnostic Data Labs Test 10/27/24 10:20 10/24/24 07:05 10/23/24 17:05 10/23/24 05:15 Range/Units POC Glucose 227 H 70-106 mg/dl Sodium Level 134 L 136-145 mmol/L Potassium Level 3.5 3.5-5.1 mmol/L Chloride Level 102 98-107 mmol/L Carbon Dioxide Level 25 20-31 mmol/L Anion Gap 7 5-15 Blood Urea Nitrogen 8 L 9-23 mg/dL Creatinine 0.78 0.700-1.30 mg/dL Glomerular Filtration Rate Calc 105 >90 mL/min BUN/Creatinine Ratio 10.3 10.0-20.0 Serum Glucose 297 H 74-106 mg/dL Calcium Level 9.2 8.7-10.4 mg/dL Troponin I High Sensitivity 5 </=54 ng/L White Blood Count 5.0 4.4-10.8 10^3/uL Red Blood Count 5.83 4.5-5.90 10^6/uL Hemoglobin 16.7 13.5-17.5 g/dL Hematocrit 50.5 41.0-53.0 % Mean Corpuscular Volume 86.7 80.0-100.0 fL Mean Corpuscular Hemoglobin 28.6 28.0-32.0 pg Mean Corpuscular Hemoglobin Concent 33.0 32.0-36.0 g/dL Red Cell Distribution Width 15.0 H 11.8-14.3 % Platelet Count 224 140-450 10^3/uL Mean Platelet Volume 9.6 6.9-10.8 fL Neutrophils (%) (Auto) 51.2 37.0-80.0 % Lymphocytes (%) (Auto) 34.0 10.0-50.0 % Monocytes (%) (Auto) 7.0 0.0-12.0 % Eosinophils (%) (Auto) 7.1 H 0.0-7.0 % Basophils (%) (Auto) 0.7 0.0-2.0 % Neutrophils # (Auto) 2.6 1.6-8.6 10 ^3/uL Lymphocytes # (Auto) 1.7 0.4-5.4 10 ^3/uL Monocytes # (Auto) 0.4 0-1.3 10 ^3/uL Eosinophils # (Auto) 0.4 0-0.8 10 ^3/uL Basophils # (Auto) 0 0-0.2 10 ^3/uL Nucleated Red Blood Cells 0.2 % Hemoglobin A1c 11.8 H <5.7 % A1C Total Bilirubin 0.7 0.2-1.0 mg/dL Aspartate Amino Transferase (AST) 13 13-40 U/L Alanine Aminotransferase (ALT) 16 7-40 U/L Alkaline Phosphatase 134 H 46-116 U/L B-Type Natriuretic Peptide 110.04 0-100 pg/mL Total Protein 6.5 5.7-8.2 g/dL Albumin 4.1 3.2-4.8 g/dL Test 10/23/24 00:37 Range/Units Urine Opiates Screen Neg NEGATIVE Urine Fentanyl Screen Neg NEGATIVE Urine Barbiturates Screen Neg NEGATIVE Urine Phencyclidine Screen Neg NEGATIVE Urine Amphetamines Screen Neg NEGATIVE Urine Benzodiazepines Screen Neg NEGATIVE Urine Cocaine Screen Neg NEGATIVE Urine Cannabinoids Screen Pos NEGATIVE Assessment Patient with a diagnosis of schizoaffective disorder depressed type who is endorsing suicidal ideation with a plan. He is also endorsing auditory hallucination. Plan/Recommendation I will recommend 5150 hold and transferred to inpatient psychiatric level of car e. I will start him on Zoloft 25 mg daily and Seroquel 50 mg p.o. q.h.s.. Care was coordinated with the patient and his RN. Patient may use IM Benadryl instead of hydroxyzine. Plan discussed with: Patient CHAZ GATICA MD Oct 27, 2024 16:31
[2024-10-27] MEDS: GABAPENTIN 300 MG CAP PO ONE (17:30)
[2024-10-27] MEDS: hydrOXYzine 25 MG TAB or CAP PO PRN (17:31)
[2024-10-27] MEDS ORDERED: diphenhdrAMINE HCL 50 MG/1 ML VL IM PRN (17:45)
--- NOTE | 2024-10-27 20:17 | DVHPN2 ---
Subjective c/o feeling suicidal due to hs current sitiuation/tele psych rec followed/pt will be transferred to inhouse psych Reviewed: Care Plan, H&P, Labs, Medications Changes from previous H/P or p: No Changes General: Per HPI Eyes: No Pain, No Vision change, No Conjunctivae inflammation, No Eyelid inflammation, No Other, No Redness ENT: No Ear pain, No Ear discharge, No Nose pain, No Nose discharge, No Nose congestion, No Mouth pain, No Mouth swelling, No Throat pain, No Throat swelling, No Other Cardiovascular: Chest Pain; No Palpitations, No Orthopnea, No Paroxysmal Noc. Dyspnea, No Edema, No Lt Headedness, No Other Respiratory: No Cough, No Dry, No Shortness of breath, No SOB with excertion, No Wheezing, No Hemoptysis, No Pleuritic Pain, No Sputum, No Other Gastrointestinal: No Nausea, No Vomiting, No Abdominal Pain, No Diarrhea, No Constipation, No Melena, No Hematochezia, No Other Genitourinary: No Dysuria, No Frequency, No Incontinence, No Hematuria, No Retention, No Other Musculoskeletal: No other, No neck pain, No shoulder pain, No arm pain, No back pain, No hand pain, No leg pain, No foot pain Skin: No Rash, No Lesions, No Jaundice, No Bruising, No Other Objective Vitals Vital Signs Date Time Temp Pulse Resp B/P (MAP) Pulse Ox O2 Delivery O2 Flow Rate FiO2 10/27/24 17:00 98.2 77 20 122/67 (85) 92 98.2 10/27/24 08:00 Nasal Cannula* 2 28 Intake/Output Intake and Output 10/27/24 07:00 Intake Total 1448 ml Output Total 2180 ml Balance -732 ml Intake Oral 1448 ml Output Urine Total 2180 ml General Appearance: Alert, Oriented X3, Cooperative, mild distress HEENT: Atraumatic, PERRLA Lungs: Clear to auscultation, Normal air movement Cardiovascular: Normal S1, Normal S2 Abdomen: Normal bowel sounds, Soft, No tenderness, No masses Musculoskeletal: Normal sensory function, Normal motor function Neuro: Normal gait, Normal speech Psych/Mental Status: Mental status NL, Mood NL Medications Current Medications Medications Dose Ordered Sig/Jeremiah Route Start Time Stop Time Status Last Admin Dose Admin Aspirin 81 mg DAILY PO 10/23/24 10:00 10/27/24 10:23 81 MG Atorvastatin Calcium 20 mg HS PO 10/22/24 22:00 10/26/24 22:31 20 MG Acetaminophen/ Hydrocodone Bitart 1 tab Q4HP PRN PO 10/22/24 18:15 10/27/24 15:44 1 TAB Ondansetron HCl 4 mg Q4HP PRN IV 10/22/24 18:15 Docusate Sodium 100 mg BIDPRN PRN PO 10/22/24 18:15 Acetaminophen 650 mg Q6HP PRN PO 10/22/24 18:15 Nitroglycerin 0.4 mg Q5MINP PRN SL 10/22/24 18:15 Hydralazine HCl 10 mg Q6HP PRN IV 10/22/24 18:15 Diagnostic Test (Pha) 1 strip ACHS 10/24/24 17:00 10/27/24 11:14 1 STRIP Insulin Human Regular AC SC 10/24/24 17:00 10/27/24 11:14 8 UNITS Insulin Human Regular HS SC 10/24/24 22:00 10/26/24 22:29 4 UNITS Dextrose 50 ml UD PRN IV 10/24/24 12:00 Insulin Glargine 30 units DAILY@1000 SC 10/26/24 10:00 10/27/24 11:13 30 UNITS Amoxicillin/ Clavulanate Potassium 500 mg Q8HR PO 10/26/24 14:00 10/29/24 13:59 10/27/24 14:12 500 MG Gabapentin 600 mg TID PO 10/27/24 22:00 Trazodone HCl 150 mg HS PO 10/27/24 22:00 Sertraline HCl 25 mg DAILY PO 10/28/24 10:00 Quetiapine Fumarate 50 mg HS PO 10/27/24 22:00 Diphenhydramine HCl 25 mg Q8HP PRN IM 10/27/24 17:45 Laboratory Results Laboratory Tests 10/23/24 05:15 10/24/24 07:05 Labs and/or images reviewed: Labs reviewed by me, Image(s) reviewed by me Assessment/Plan Assessment/Plan rt lower lobe pneumonia/atelectesis-better depression with suicidal thoughts trasfer to inhouse psych/meds adjusted dm- stable cad- s/p cabg bipolar disorder Plan discussed with: Patient, Other My Orders Orders - ROBERTA GERARD MD Procedure Category Date Status Time Gabapentin Capsule PHA 10/27/24 In Process (Neurontin Capsule) 22:00 Trazodone Hcl PHA 10/27/24 In Process (Desyrel) 22:00 Diphenhdramine PHA 10/27/24 In Process Injection (Benadryl 17:45 * Journalism Teacher CONS 10/27/24 Transmitted Consult Date of Service: Oct 27, 2023 Billing Provider: ROBERTA GERARD MD Common Visit Codes: [id number] INP/OBS CARE(MOD) ROBERTA GERARD MD Oct 27, 2024 20:17
[2024-10-27] MEDS: traZODone HCL 50 MG TAB PO SCH (21:29)
[2024-10-27] MEDS: GABAPENTIN 300 MG CAP PO SCH (21:29)
[2024-10-27] MEDS: QUEtiapine FUMARATE 25 MG TAB PO SCH (21:29)
[2024-10-28] VITALS (8 sets, daily range): BP systolic 99–134; BP diastolic 52–84; PULSE 66–90; RESP 18–90; TEMP 97.7–98.3; O2SAT 20–96
[2024-10-28] MEDS: SERTRALINE HCL 50 MG TAB PO SCH (10:20)
--- NOTE | 2024-10-28 12:16 | DVHPN2 ---
Subjective COUGHING and more rested today/states was heroin addict and concerned redness rt elbow at site of iv/awaiting placemment at inhouse psych facility Reviewed: Care Plan, H&P, Labs, Medications Changes from previous H/P or p: No Changes General: Per HPI Eyes: No Pain, No Vision change, No Conjunctivae inflammation, No Eyelid inflammation, No Other, No Redness ENT: No Ear pain, No Ear discharge, No Nose pain, No Nose discharge, No Nose congestion, No Mouth pain, No Mouth swelling, No Throat pain, No Throat swelling, No Other Cardiovascular: Chest Pain; No Palpitations, No Orthopnea, No Paroxysmal Noc. Dyspnea, No Edema, No Lt Headedness, No Other Respiratory: No Cough, No Dry, No Shortness of breath, No SOB with excertion, No Wheezing, No Hemoptysis, No Pleuritic Pain, No Sputum, No Other Gastrointestinal: No Nausea, No Vomiting, No Abdominal Pain, No Diarrhea, No Constipation, No Melena, No Hematochezia, No Other Genitourinary: No Dysuria, No Frequency, No Incontinence, No Hematuria, No Retention, No Other Musculoskeletal: No other, No neck pain, No shoulder pain, No arm pain, No back pain, No hand pain, No leg pain, No foot pain Skin: No Rash, No Lesions, No Jaundice, No Bruising, No Other Objective Vitals Vital Signs Date Time Temp Pulse Resp B/P (MAP) Pulse Ox O2 Delivery O2 Flow Rate FiO2 10/28/24 09:00 97.8 75 18 99/52 (68) 92 97.8 10/28/24 08:00 Room Air* 0 21 Intake/Output Intake and Output 10/28/24 07:00 Intake Total 1714 ml Output Total 2900 ml Balance -1186 ml Intake Oral 1714 ml Output Urine Total 2900 ml General Appearance: Alert, Oriented X3, Cooperative, mild distress HEENT: Atraumatic, PERRLA Lungs: Clear to auscultation, Normal air movement Cardiovascular: Normal S1, Normal S2 Abdomen: Normal bowel sounds, Soft, No tenderness, No masses Musculoskeletal: Normal sensory function, Normal motor function Extremities: Other (rt elbow flexor surface 1.5 cm area of erythema/) Neuro: Normal gait, Normal speech Psych/Mental Status: Mental status NL, Mood NL Medications Current Medications Medications Dose Ordered Sig/Jeremiah Route Start Time Stop Time Status Last Admin Dose Admin Aspirin 81 mg DAILY PO 10/23/24 10:00 10/28/24 10:20 81 MG Atorvastatin Calcium 20 mg HS PO 10/22/24 22:00 10/27/24 21:29 20 MG Acetaminophen/ Hydrocodone Bitart 1 tab Q4HP PRN PO 10/22/24 18:15 10/27/24 15:44 1 TAB Ondansetron HCl 4 mg Q4HP PRN IV 10/22/24 18:15 Docusate Sodium 100 mg BIDPRN PRN PO 10/22/24 18:15 Acetaminophen 650 mg Q6HP PRN PO 10/22/24 18:15 Nitroglycerin 0.4 mg Q5MINP PRN SL 10/22/24 18:15 Hydralazine HCl 10 mg Q6HP PRN IV 10/22/24 18:15 Diagnostic Test (Pha) 1 strip ACHS 10/24/24 17:00 10/28/24 05:56 1 STRIP Insulin Human Regular AC SC 10/24/24 17:00 10/28/24 05:52 12 UNITS Insulin Human Regular HS SC 10/24/24 22:00 10/27/24 21:59 6 UNITS Dextrose 50 ml UD PRN IV 10/24/24 12:00 Insulin Glargine 30 units DAILY@1000 SC 10/26/24 10:00 10/28/24 10:21 30 UNITS Amoxicillin/ Clavulanate Potassium 500 mg Q8HR PO 10/26/24 14:00 10/29/24 13:59 10/27/24 14:12 500 MG Gabapentin 600 mg TID PO 10/27/24 22:00 10/28/24 05:53 600 MG Trazodone HCl 150 mg HS PO 10/27/24 22:00 10/27/24 21:29 150 MG Sertraline HCl 25 mg DAILY PO 10/28/24 10:00 10/28/24 10:20 25 MG Quetiapine Fumarate 50 mg HS PO 10/27/24 22:00 10/27/24 21:29 50 MG Diphenhydramine HCl 25 mg Q8HP PRN IM 10/27/24 17:45 Laboratory Results Laboratory Tests 10/23/24 05:15 10/24/24 07:05 Labs and/or images reviewed: Labs reviewed by me, Image(s) reviewed by me Assessment/Plan Assessment/Plan rt lower lobe pneumonia/[id number] depression with suicidal thoughts transfer to inhouse psych/meds adjusted rt arm cellulitis/phlebitis h/o heroin abuse dm- stable cad- s/p cabg bipolar disorder Plan discussed with: Patient, Other My Orders Orders - ROBERTA GERARD MD Procedure Category Date Status Time Gabapentin Capsule PHA 10/27/24 In Process (Neurontin Capsule) 22:00 Trazodone Hcl PHA 10/27/24 In Process (Desyrel) 22:00 Diphenhdramine PHA 10/27/24 In Process Injection (Benadryl 17:45 * Tariff Clerk CONS 10/27/24 Transmitted Consult Right Upper Ext. US 10/28/24 Verified 12:10 Date of Service: Oct 28, 2024 Billing Provider: ROBERTA GERARD MD Common Visit Codes: [id number] INP/OBS CARE(MOD) ROBERTA GERARD MD Oct 28, 2024 12:16
--- NOTE | 2024-10-28 13:08 | DVH ---
EXAM: US RT UPPER DVT Clinical History: R/O DVT Comparison: None Technique: Duplex Doppler evaluation of the deep venous systems of the right lower extremity from the common fem oral veins to the popliteal veins including color Doppler and spectral/pulsed waveform analysis was p erformed. Findings: No visible intraluminal venous thrombus. No evidence of incompressibility or abnormal color or spectr al Doppler flow visualized in the deep right lower extremity veins. Proximal greater saphenous vein i s grossly unremarkable. Superficial thrombus in the right cephalic vein in the right antecubital fossa region of interest. Impression: 1. No sonographic evidence of deep venous thrombosis throughout the right lower extremity from the po pliteal vein to the common femoral vein. 2. Superficial venous thrombus in the right cephalic vein in the right antecubital fossa [facility].
[2024-10-28 13:41] LABS: Basophils # (auto) 0 10 ^3/uL (0-0.2); Basophils % (auto) 0.7 % (0.0-2.0); Eosinophils # (auto) 0.6 10 ^3/uL (0-0.8); Eosinophils % (auto) 10.8 % (0.0-7.0); Hematocrit 49.6 % (41.0-53.0); Hemoglobin 16.3 g/dL (13.5-17.5); Lymphocytes # (auto) 1.6 10 ^3/uL (0.4-5.4); Lymphocytes % (auto) 30.3 % (10.0-50.0); Mean Corpuscular Hgb Conc. 32.8 g/dL (32.0-36.0); Mean Corpuscular Volume 88.6 fL (80.0-100.0); Monocytes # (auto) 0.6 10 ^3/uL (0-1.3); Monocytes % (auto) 11.8 % (0.0-12.0); Neutrophils # (auto) 2.5 10 ^3/uL (1.6-8.6); Neutrophils % (auto) 46.4 % (37.0-80.0); Nucleated Red Blood Cells % 0.4 %; Platelet Count (auto) 182 10^3/uL (140-450); Red Cell Distribution Width 14.4 % (11.8-14.3); White Blood Cell 5.4 10^3/uL (4.4-10.8)
[2024-10-28 13:55] LABS: Alanine Aminotransferase 15 U/L (7-40); Albumin 3.9 g/dL (3.2-4.8); Anion Gap 7 (5-15); Aspartate Aminotransferase 17 U/L (13-40); Calcium 9.2 mg/dL (8.7-10.4); Carbon Dioxide 24 mmol/L (20-31); Chloride 102 mmol/L (98-107); Potassium 4.3 mmol/L (3.5-5.1)
[2024-10-28 13:56] LABS: Bilirubin, Total 0.4 mg/dL (0.2-1.0); Total Protein 6.3 g/dL (5.7-8.2)
[2024-10-28] MEDS: ENOXAPARIN SOD 40 MG/0.4 ML SYRINGE SC ONE (13:58)
[2024-10-28] MEDS: cefTRIAXone 1GM/50ML D5W 50 ML IV ONE (13:58)
[2024-10-28 14:00] LABS: Alkaline Phosphatase 140 U/L (46-116); Blood Urea Nitrogen 8 mg/dL (9-23); Glucose 317 mg/dL (74-106); Sodium 133 mmol/L (136-145)
--- NOTE | 2024-10-28 17:00 | DVH ---
EXAM: XY CHEST PORTABLE TECHNIQUE: Single frontal chest radiograph CLINICAL HISTORY: cough COMPARISON: XY CHEST PORTABLE on DOS: 10/24/24, XY CHEST PORTABLE on DOS: 10/22/24 Findings/Impression: Frontal chest radiograph demonstrates no acute osseous or superficial soft tissue abnormalities. The trachea is midline. The cardiac silhouette and mediastinum are within normal limits. No pneumothorax, pleural effusions, or consolidations.
[2024-10-29] VITALS (7 sets, daily range): BP systolic 117–122; BP diastolic 70–77; PULSE 61–78; RESP 17–18; TEMP 98.2–98.4; O2SAT 94–98
[2024-10-29] MEDS: TEMAZEPAM 15 MG CAP PO ONE (01:22)
[2024-10-29] MEDS ORDERED: cefTRIAXone 1GM/50ML D5W 50 ML IV SCH (09:00)
--- NOTE | 2024-10-29 09:35 | DVHPN2 ---
Subjective Complaining of pain and anxiety Reviewed: Care Plan, H&P, Labs, Medications Changes from previous H/P or p: No Changes General: Per HPI Eyes: No Pain, No Vision change, No Conjunctivae inflammation, No Eyelid inflammation, No Other, No Redness ENT: No Ear pain, No Ear discharge, No Nose pain, No Nose discharge, No Nose congestion, No Mouth pain, No Mouth swelling, No Throat pain, No Throat swelling, No Other Cardiovascular: Chest Pain; No Palpitations, No Orthopnea, No Paroxysmal Noc. Dyspnea, No Edema, No Lt Headedness, No Other Respiratory: No Cough, No Dry, No Shortness of breath, No SOB with excertion, No Wheezing, No Hemoptysis, No Pleuritic Pain, No Sputum, No Other Gastrointestinal: No Nausea, No Vomiting, No Abdominal Pain, No Diarrhea, No Constipation, No Melena, No Hematochezia, No Other Genitourinary: No Dysuria, No Frequency, No Incontinence, No Hematuria, No Retention, No Other Musculoskeletal: No other, No neck pain, No shoulder pain, No arm pain, No back pain, No hand pain, No leg pain, No foot pain Skin: No Rash, No Lesions, No Jaundice, No Bruising, No Other Objective Vitals Vital Signs Date Time Temp Pulse Resp B/P (MAP) Pulse Ox O2 Delivery O2 Flow Rate FiO2 10/29/24 09:29 98.2 67 17 122/75 (91) 95 98.2 10/28/24 20:00 Room Air* 0 21 Intake/Output Intake and Output 10/29/24 07:00 Intake Total 1360 ml Output Total 2380 ml Balance -1020 ml Intake Oral 1360 ml Output Urine Total 2380 ml # Voids 1 General Appearance: Alert, Oriented X3, Cooperative, mild distress HEENT: Atraumatic, PERRLA Lungs: Clear to auscultation, Normal air movement Cardiovascular: Normal S1, Normal S2 Abdomen: Normal bowel sounds, Soft, No tenderness, No masses Musculoskeletal: Normal sensory function, Normal motor function Extremities: Other (rt elbow flexor surface 1.5 cm area of erythema/) Neuro: Normal gait, Normal speech Psych/Mental Status: Mental status NL, Mood NL Medications Current Medications Medications Dose Ordered Sig/Jeremiah Route Start Time Stop Time Status Last Admin Dose Admin Aspirin 81 mg DAILY PO 10/23/24 10:00 10/28/24 10:20 81 MG Atorvastatin Calcium 20 mg HS PO 10/22/24 22:00 10/28/24 20:01 20 MG Acetaminophen/ Hydrocodone Bitart 1 tab Q4HP PRN PO 10/22/24 18:15 10/29/24 05:07 1 TAB Docusate Sodium 100 mg BIDPRN PRN PO 10/22/24 18:15 Acetaminophen 650 mg Q6HP PRN PO 10/22/24 18:15 Hydralazine HCl 10 mg Q6HP PRN IV 10/22/24 18:15 Diagnostic Test (Pha) 1 strip ACHS 10/24/24 17:00 10/29/24 06:14 1 STRIP Insulin Human Regular AC SC 10/24/24 17:00 10/29/24 06:24 12 UNITS Insulin Human Regular HS SC 10/24/24 22:00 10/27/24 21:59 6 UNITS Dextrose 50 ml UD PRN IV 10/24/24 12:00 Gabapentin 600 mg TID PO 10/27/24 22:00 10/29/24 06:12 600 MG Sertraline HCl 25 mg DAILY PO 10/28/24 10:00 10/28/24 10:20 25 MG Quetiapine Fumarate 50 mg HS PO 10/27/24 22:00 10/28/24 20:00 50 MG Enoxaparin Sodium 40 mg DAILY SC 10/29/24 10:00 Insulin Glargine 40 units DAILY@1000 SC 10/29/24 10:00 Laboratory Results Laboratory Tests 10/28/24 13:18 Chemistry Test 10/28/24 13:18 Albumin 3.9 g/dL (3.2-4.8) Calcium Level 9.2 mg/dL (8.7-10.4) Total Protein 6.3 g/dL (5.7-8.2) LFT Test 10/28/24 13:18 Alanine Aminotransferase (ALT) 15 U/L (7-40) Alkaline Phosphatase 140 U/L (46-116) H Aspartate Amino Transferase (AST) 17 U/L (13-40) Total Bilirubin 0.4 mg/dL (0.2-1.0) Labs and/or images reviewed: Labs reviewed by me, Image(s) reviewed by me Assessment/Plan Assessment/Plan Impression: -history of CAD, rule out ACS -alcohol withdrawal -alcoholism -diabetes mellitus -obesity -dyslipidemia -medication noncompliance -probable acute pulmonary vascular congestion from systolic failure Plan: Events: Stop abx. Increase lantus. PT. Transfer to inpatient psychiatry -Psych meds per recommendations. Add prn Xanax -repeat troponin EKG: Unremarkable. -increase Lantus to 40 units daily -regular insulin sliding scale -continue statin -social service consultation for discharge planning Total time spent with patient discussing and formulating plan of care: 35 minutes. This medical document was created using an electronic medical record system with [id number] dictation system. Although this document has been carefully reviewed, there may still be some phonetic and typographical errors. These areas are purely typographical due to imperfections of the software programs, and do not reflect any compromise in the patient's medical care. Plan discussed with: Patient, Other (RN) My Orders Orders - GALLITO GIBSON NP Procedure Category Date Status Time Insulin Lantus PHA 10/29/24 In Process (Glargine) (Lantus) 10:00 Transfer Orders XFER 10/29/24 Transmitted 09:05 Oob To Chair AYLA 10/29/24 In Process 09:08 Date of Service: Oct 29, 2024 Billing Provider: GALLITO GIBSON NP Common Visit Codes: [id number] INP/OBS CARE(HIGH) GALLITO GIBSON NP Oct 29, 2024 09:35
[2024-10-29] MEDS: ENOXAPARIN SOD 40 MG/0.4 ML SYRINGE SC SCH (10:20)
[2024-10-29] MEDS: INSULIN LANTUS (GLARGINE) 1 /0.01ml (100units/ml) SC SCH (10:30)
[2024-10-29] MEDS: ALPRAZolam 0.25 MG TAB PO PRN (10:58)
[2024-10-29 21:03] LABS: Rapid Influenza A Negative (Negative); Rapid Influenza B Negative (Negative)
[2024-10-30 05:02] VITALS: BP 140/71; PULSE 67; RESP 18; TEMP 98; O2SAT 96
[2024-10-30 09:18] VITALS: BP 116/63; PULSE 78; RESP 18; TEMP 97.9; O2SAT 94
[2024-10-30 13:00] VITALS: BP 142/92; PULSE 68; RESP 20; TEMP 98.4; O2SAT 95
--- NOTE | 2024-10-30 13:14 | DVHPN2 ---
Subjective Complaining of pain and anxiety Reviewed: Care Plan, H&P, Labs, Medications Changes from previous H/P or p: No Changes General: Per HPI Eyes: No Pain, No Vision change, No Conjunctivae inflammation, No Eyelid inflammation, No Other, No Redness ENT: No Ear pain, No Ear discharge, No Nose pain, No Nose discharge, No Nose congestion, No Mouth pain, No Mouth swelling, No Throat pain, No Throat swelling, No Other Cardiovascular: Chest Pain; No Palpitations, No Orthopnea, No Paroxysmal Noc. Dyspnea, No Edema, No Lt Headedness, No Other Respiratory: No Cough, No Dry, No Shortness of breath, No SOB with excertion, No Wheezing, No Hemoptysis, No Pleuritic Pain, No Sputum, No Other Gastrointestinal: No Nausea, No Vomiting, No Abdominal Pain, No Diarrhea, No Constipation, No Melena, No Hematochezia, No Other Genitourinary: No Dysuria, No Frequency, No Incontinence, No Hematuria, No Retention, No Other Musculoskeletal: No other, No neck pain, No shoulder pain, No arm pain, No back pain, No hand pain, No leg pain, No foot pain Skin: No Rash, No Lesions, No Jaundice, No Bruising, No Other Objective Vitals Vital Signs Date Time Temp Pulse Resp B/P (MAP) Pulse Ox O2 Delivery O2 Flow Rate FiO2 10/30/24 13:00 98.4 68 20 142/92 (109) 95 98.4 10/30/24 08:00 Room Air* 0 21 Intake/Output Intake and Output 10/30/24 06:59 Intake Total 1140 ml Output Total 2000 ml Balance -860 ml Intake Oral 1140 ml Output Urine Total 2000 ml General Appearance: Alert, Oriented X3, Cooperative, mild distress HEENT: Atraumatic, PERRLA Lungs: Clear to auscultation, Normal air movement Cardiovascular: Normal S1, Normal S2 Abdomen: Normal bowel sounds, Soft, No tenderness, No masses Musculoskeletal: Normal sensory function, Normal motor function Extremities: Other (rt elbow flexor surface 1.5 cm area of erythema/) Neuro: Normal gait, Normal speech Psych/Mental Status: Mental status NL, Mood NL Medications Current Medications Medications Dose Ordered Sig/Jeremiah Route Start Time Stop Time Status Last Admin Dose Admin Aspirin 81 mg DAILY PO 10/23/24 10:00 10/30/24 11:15 81 MG Atorvastatin Calcium 20 mg HS PO 10/22/24 22:00 10/28/24 20:01 20 MG Acetaminophen/ Hydrocodone Bitart 1 tab Q4HP PRN PO 10/22/24 18:15 10/30/24 11:09 1 TAB Docusate Sodium 100 mg BIDPRN PRN PO 10/22/24 18:15 Acetaminophen 650 mg Q6HP PRN PO 10/22/24 18:15 Hydralazine HCl 10 mg Q6HP PRN IV 10/22/24 18:15 Diagnostic Test (Pha) 1 strip ACHS 10/24/24 17:00 10/30/24 12:49 1 STRIP Insulin Human Regular AC SC 10/24/24 17:00 10/30/24 12:49 12 UNITS Insulin Human Regular HS SC 10/24/24 22:00 10/27/24 21:59 6 UNITS Dextrose 50 ml UD PRN IV 10/24/24 12:00 Gabapentin 600 mg TID PO 10/27/24 22:00 10/30/24 05:54 600 MG Sertraline HCl 25 mg DAILY PO 10/28/24 10:00 10/30/24 11:09 25 MG Quetiapine Fumarate 50 mg HS PO 10/27/24 22:00 10/28/24 20:00 50 MG Enoxaparin Sodium 40 mg DAILY SC 10/29/24 10:00 10/30/24 11:16 40 MG Insulin Glargine 40 units DAILY@1000 SC 10/29/24 10:00 10/30/24 11:15 40 UNITS Alprazolam 0.25 mg Q8HP PRN PO 10/29/24 09:45 10/29/24 10:58 0.25 MG Laboratory Results Laboratory Tests 10/28/24 13:18 Labs and/or images reviewed: Labs reviewed by me, Image(s) reviewed by me Assessment/Plan Assessment/Plan Impression: -history of CAD, rule out ACS -alcohol withdrawal -alcoholism -diabetes mellitus -obesity -dyslipidemia -medication noncompliance -probable acute pulmonary vascular congestion from systolic failure Plan: Events: Patient Delusional today. Ambulating. States, "feels better psychologically". -Psych meds per recommendations. Add prn Xanax -repeat troponin EKG: Unremarkable. -increase Lantus to 40 units daily -regular insulin sliding scale -continue statin -social service consultation for discharge planning Total time spent with patient discussing and formulating plan of care: 35 minutes. This medical document was created using an electronic medical record system with [employer] dictation system. Although this document has been carefully reviewed, there may still be some phonetic and typographical errors. These areas are purely typographical due to imperfections of the software programs, and do not reflect any compromise in the patient's medical care. Plan discussed with: Patient, Other (RN) Date of Service: Oct 30, 2024 Billing Provider: GALLITO GIBSON NP Common Visit Codes: [id number] INP/OBS CARE(HIGH) GALLITO GIBSON NP Oct 30, 2024 13:14
[2024-10-30 17:00] VITALS: BP 137/83; PULSE 63; RESP 16; TEMP 97.4; O2SAT 95
[2024-10-30 20:00] VITALS: PULSE 66; RESP 18
[2024-10-30 21:00] VITALS: BP 120/74; PULSE 66; RESP 18; TEMP 97.5; O2SAT 100
[2024-10-31] VITALS (7 sets, daily range): BP systolic 121–147; BP diastolic 55–95; PULSE 58–73; RESP 17–20; TEMP 97.5–98; O2SAT 91–96
--- NOTE | 2024-10-31 14:15 | DVHPN2 ---
Subjective Complaining of pain and anxiety Reviewed: Care Plan, H&P, Labs, Medications Changes from previous H/P or p: No Changes General: Per HPI Eyes: No Pain, No Vision change, No Conjunctivae inflammation, No Eyelid inflammation, No Other, No Redness ENT: No Ear pain, No Ear discharge, No Nose pain, No Nose discharge, No Nose congestion, No Mouth pain, No Mouth swelling, No Throat pain, No Throat swelling, No Other Cardiovascular: Chest Pain; No Palpitations, No Orthopnea, No Paroxysmal Noc. Dyspnea, No Edema, No Lt Headedness, No Other Respiratory: No Cough, No Dry, No Shortness of breath, No SOB with excertion, No Wheezing, No Hemoptysis, No Pleuritic Pain, No Sputum, No Other Gastrointestinal: No Nausea, No Vomiting, No Abdominal Pain, No Diarrhea, No Constipation, No Melena, No Hematochezia, No Other Genitourinary: No Dysuria, No Frequency, No Incontinence, No Hematuria, No Retention, No Other Musculoskeletal: No other, No neck pain, No shoulder pain, No arm pain, No back pain, No hand pain, No leg pain, No foot pain Skin: No Rash, No Lesions, No Jaundice, No Bruising, No Other Objective Vitals Vital Signs Date Time Temp Pulse Resp B/P (MAP) Pulse Ox O2 Delivery O2 Flow Rate FiO2 10/31/24 13:06 97.6 71 20 146/83 (104) 91 97.6 10/31/24 08:00 Room Air* 0 21 Intake/Output Intake and Output 10/31/24 06:59 Intake Total 2390 ml Output Total 3225 ml Balance -835 ml Intake Oral 2390 ml Output Urine Total 3225 ml # Bowel Movements 1 General Appearance: Alert, Oriented X3, Cooperative, mild distress HEENT: Atraumatic, PERRLA Lungs: Clear to auscultation, Normal air movement Cardiovascular: Normal S1, Normal S2 Abdomen: Normal bowel sounds, Soft, No tenderness, No masses Musculoskeletal: Normal sensory function, Normal motor function Extremities: Other (rt elbow flexor surface 1.5 cm area of erythema/) Neuro: Normal gait, Normal speech Skin: Dry, Intact Psych/Mental Status: Mental status NL, Other (Patient denies suicidal ideation. Reports being anxious.) Medications Current Medications Medications Dose Ordered Sig/Jeremiah Route Start Time Stop Time Status Last Admin Dose Admin Aspirin 81 mg DAILY PO 10/23/24 10:00 10/31/24 10:12 81 MG Atorvastatin Calcium 20 mg HS PO 10/22/24 22:00 10/30/24 22:47 20 MG Acetaminophen/ Hydrocodone Bitart 1 tab Q4HP PRN PO 10/22/24 18:15 10/31/24 10:13 1 TAB Docusate Sodium 100 mg BIDPRN PRN PO 10/22/24 18:15 Acetaminophen 650 mg Q6HP PRN PO 10/22/24 18:15 Hydralazine HCl 10 mg Q6HP PRN IV 10/22/24 18:15 Diagnostic Test (Pha) 1 strip ACHS 10/24/24 17:00 10/31/24 12:42 1 STRIP Insulin Human Regular AC SC 10/24/24 17:00 10/31/24 12:42 16 UNITS Insulin Human Regular HS SC 10/24/24 22:00 10/30/24 22:55 4 UNITS Dextrose 50 ml UD PRN IV 10/24/24 12:00 Gabapentin 600 mg TID PO 10/27/24 22:00 10/31/24 05:37 600 MG Sertraline HCl 25 mg DAILY PO 10/28/24 10:00 10/31/24 10:13 25 MG Quetiapine Fumarate 50 mg HS PO 10/27/24 22:00 10/30/24 22:46 50 MG Enoxaparin Sodium 40 mg DAILY SC 10/29/24 10:00 10/31/24 10:12 40 MG Alprazolam 0.25 mg Q8HP PRN PO 10/29/24 09:45 10/31/24 12:38 0.25 MG Insulin Glargine 50 units DAILY@1000 SC 11/01/24 10:00 Laboratory Results Laboratory Tests 10/28/24 13:18 Labs and/or images reviewed: Labs reviewed by me, Image(s) reviewed by me Assessment/Plan Assessment/Plan Impression: -history of CAD, rule out ACS -alcohol withdrawal -alcoholism -diabetes mellitus -obesity -dyslipidemia -medication noncompliance -probable acute pulmonary vascular congestion from systolic failure Plan: Events: Patient Delusional today. Ambulating. States, "feels better psychologically". -Psych meds per recommendations. Add prn Xanax -repeat troponin EKG: Unremarkable. -increase Lantus to 40 units daily -regular insulin sliding scale -continue statin -social service consultation for discharge planning Total time spent with patient discussing and formulating plan of care: 35 minutes. This medical document was created using an electronic medical record system with [employer] dictation system. Although this document has been carefully reviewed, there may still be some phonetic and typographical errors. These areas are purely typographical due to imperfections of the software programs, and do not reflect any compromise in the patient's medical care. Plan discussed with: Patient, Other (RN) My Orders Orders - GALLITO GIBSON NP Procedure Category Date Status Time Insulin Lantus PHA 11/01/24 In Process (Glargine) (Lantus) 10:00 Date of Service: Oct 31, 2024 Billing Provider: GALLITO GIBSON NP Common Visit Codes: [id number] INP/OBS CARE(HIGH) GALLITO GIBSON NP Oct 31, 2024 14:15
[2024-10-31] MEDS: HYDROcodone-ACET 7.5/325MG TAB PO PRN (17:17)
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
[2024-11-01 08:00] VITALS: PULSE 65; RESP 18; O2SAT 96
[2024-11-01 08:24] VITALS: BP 165/106; PULSE 71; RESP 16; TEMP 97.4; O2SAT 96
[2024-11-01] MEDS: INSULIN LANTUS (GLARGINE) 1 /0.01ml (100units/ml) SC SCH (10:53)
[2024-11-01 13:00] VITALS: BP 147/95; PULSE 80; RESP 20; TEMP 98.2; O2SAT 96
[2024-11-01] MEDS ORDERED: SERT50TA PO (13:38)
[2024-11-01] MEDS ORDERED: QUET1TAB11 PO (13:38)
[2024-11-01 16:30] VITALS: BP 142/75; PULSE 83; RESP 20; TEMP 98.4; O2SAT 97
[2024-11-01 20:00] VITALS: PULSE 67; RESP 16; O2SAT 95
[2024-11-01 21:00] VITALS: BP 133/83; PULSE 67; RESP 16; TEMP 97.7; O2SAT 95
[2024-11-02] VITALS (8 sets, daily range): BP systolic 103–140; BP diastolic 52–97; PULSE 55–70; RESP 18–20; TEMP 97.5–98.3; O2SAT 94–98
--- NOTE | 2024-11-02 09:43 | DVHPN2 ---
Subjective Complaining of pain and anxiety Reviewed: Care Plan, H&P, Labs, Medications Changes from previous H/P or p: No Changes General: Per HPI Eyes: No Pain, No Vision change, No Conjunctivae inflammation, No Eyelid inflammation, No Other, No Redness ENT: No Ear pain, No Ear discharge, No Nose pain, No Nose discharge, No Nose congestion, No Mouth pain, No Mouth swelling, No Throat pain, No Throat swelling, No Other Cardiovascular: Chest Pain; No Palpitations, No Orthopnea, No Paroxysmal Noc. Dyspnea, No Edema, No Lt Headedness, No Other Respiratory: No Cough, No Dry, No Shortness of breath, No SOB with excertion, No Wheezing, No Hemoptysis, No Pleuritic Pain, No Sputum, No Other Gastrointestinal: No Nausea, No Vomiting, No Abdominal Pain, No Diarrhea, No Constipation, No Melena, No Hematochezia, No Other Genitourinary: No Dysuria, No Frequency, No Incontinence, No Hematuria, No Retention, No Other Musculoskeletal: No other, No neck pain, No shoulder pain, No arm pain, No back pain, No hand pain, No leg pain, No foot pain Skin: No Rash, No Lesions, No Jaundice, No Bruising, No Other Objective Vitals Vital Signs Date Time Temp Pulse Resp B/P (MAP) Pulse Ox O2 Delivery O2 Flow Rate FiO2 11/02/24 09:00 97.6 68 18 124/97 (106) 97 97.6 11/02/24 08:00 Room Air* 0 21 Intake/Output Intake and Output 11/02/24 07:00 Intake Total 1500 ml Output Total 3101 ml Balance -1601 ml Intake Oral 1500 ml Output Urine Total 3100 ml Stool Total 1 ml General Appearance: Alert, Oriented X3, Cooperative, mild distress HEENT: Atraumatic, PERRLA Lungs: Clear to auscultation, Normal air movement Cardiovascular: Normal S1, Normal S2 Abdomen: Normal bowel sounds, Soft, No tenderness, No masses Musculoskeletal: Normal sensory function, Normal motor function Extremities: Other (rt elbow flexor surface 1.5 cm area of erythema/) Neuro: Normal gait, Normal speech Skin: Dry, Intact Psych/Mental Status: Mental status NL, Other (Patient denies suicidal ideation. Reports being anxious.) Medications Current Medications Medications Dose Ordered Sig/Jeremiah Route Start Time Stop Time Status Last Admin Dose Admin Aspirin 81 mg DAILY PO 10/23/24 10:00 11/01/24 10:38 81 MG Atorvastatin Calcium 20 mg HS PO 10/22/24 22:00 11/01/24 21:25 20 MG Docusate Sodium 100 mg BIDPRN PRN PO 10/22/24 18:15 Acetaminophen 650 mg Q6HP PRN PO 10/22/24 18:15 Hydralazine HCl 10 mg Q6HP PRN IV 10/22/24 18:15 Diagnostic Test (Pha) 1 strip ACHS 10/24/24 17:00 11/02/24 06:45 1 STRIP Insulin Human Regular AC SC 10/24/24 17:00 11/02/24 06:46 16 UNITS Insulin Human Regular HS SC 10/24/24 22:00 11/01/24 21:39 6 UNITS Dextrose 50 ml UD PRN IV 10/24/24 12:00 Gabapentin 600 mg TID PO 10/27/24 22:00 11/02/24 06:38 600 MG Sertraline HCl 25 mg DAILY PO 10/28/24 10:00 11/01/24 10:38 25 MG Quetiapine Fumarate 50 mg HS PO 10/27/24 22:00 11/01/24 21:25 50 MG Enoxaparin Sodium 40 mg DAILY SC 10/29/24 10:00 10/31/24 10:12 40 MG Alprazolam 0.25 mg Q8HP PRN PO 10/29/24 09:45 11/01/24 21:25 0.25 MG Insulin Glargine 50 units DAILY@1000 SC 11/01/24 10:00 11/01/24 10:53 50 UNITS Acetaminophen/ Hydrocodone Bitart 1 tab Q6HP PRN PO 10/31/24 14:15 11/02/24 02:22 1 TAB Laboratory Results Laboratory Tests 10/28/24 13:18 Microbiology Microbiology Date/Time Source Procedure Growth Status 10/31/24 06:40 Arm Right Gram Stain - Final Complete 10/31/24 06:40 Wound Culture - Final Staphylococcus aureus Streptococcus Group B Complete Labs and/or images reviewed: Labs reviewed by me, Image(s) reviewed by me Assessment/Plan Assessment/Plan Impression: -history of CAD, ruled out ACS -alcohol withdrawal -alcoholism -diabetes mellitus -obesity -dyslipidemia -medication noncompliance -probable acute pulmonary vascular congestion from systolic failure Plan: Events: No events overnight. Pending discharge placement. -Psych meds per recommendations. Add prn Xanax -increase Lantus dosing to b.i.d. -regular insulin sliding scale -continue statin -social service consultation for discharge planning Total time spent with patient discussing and formulating plan of care: 35 minutes. This medical document was created using an electronic medical record system with [employer] dictation system. Although this document has been carefully reviewed, there may still be some phonetic and typographical errors. These areas are purely typographical due to imperfections of the software programs, and do not reflect any compromise in the patient's medical care. Plan discussed with: Patient, Other (RN) My Orders Orders - GALLITO GIBSON NP Procedure Category Date Status Time * Community Organization Aide CONS 11/01/24 Transmitted Consult Discharge DISCHARGE 11/01/24 Transmitted 13:36 Date of Service: Nov 02, 2024 Billing Provider: GALLITO GIBSON NP Common Visit Codes: [id number] INP/OBS CARE(HIGH) GALLITO GIBSON NP Nov 02, 2024 09:43
[2024-11-02] MEDS: INSULIN LANTUS (GLARGINE) 1 /0.01ml (100units/ml) SC SCH (22:48)
[2024-11-02] MEDS: LORazepam 2MG/ML-1ML VIAL IV PRN (23:30)
[2024-11-03] VITALS (7 sets, daily range): BP systolic 97–162; BP diastolic 55–91; PULSE 66–94; RESP 16–20; TEMP 97.6–101; O2SAT 90–98
--- NOTE | 2024-11-03 13:58 | DVHPN2 ---
Subjective The patient is seen and examined at bedside. No complaint today. Reviewed: Care Plan, H&P, Labs, Medications Changes from previous H/P or p: No Changes General: Per HPI Eyes: No Pain, No Vision change, No Conjunctivae inflammation, No Eyelid inflammation, No Other, No Redness ENT: No Ear pain, No Ear discharge, No Nose pain, No Nose discharge, No Nose congestion, No Mouth pain, No Mouth swelling, No Throat pain, No Throat swelling, No Other Cardiovascular: Chest Pain; No Palpitations, No Orthopnea, No Paroxysmal Noc. Dyspnea, No Edema, No Lt Headedness, No Other Respiratory: No Cough, No Dry, No Shortness of breath, No SOB with excertion, No Wheezing, No Hemoptysis, No Pleuritic Pain, No Sputum, No Other Gastrointestinal: No Nausea, No Vomiting, No Abdominal Pain, No Diarrhea, No Constipation, No Melena, No Hematochezia, No Other Genitourinary: No Dysuria, No Frequency, No Incontinence, No Hematuria, No Retention, No Other Musculoskeletal: No other, No neck pain, No shoulder pain, No arm pain, No back pain, No hand pain, No leg pain, No foot pain Skin: No Rash, No Lesions, No Jaundice, No Bruising, No Other Objective Vitals Vital Signs Date Time Temp Pulse Resp B/P (MAP) Pulse Ox O2 Delivery O2 Flow Rate FiO2 11/03/24 13:00 98.2 69 16 135/73 (93) 94 98.2 11/03/24 08:00 Room Air* 0 21 Intake/Output Intake and Output 11/03/24 07:00 Intake Total 2310 ml Output Total 1800 ml Balance 510 ml Intake Oral 2310 ml Output Urine Total 1800 ml General Appearance: Alert, Oriented X3, Cooperative, mild distress HEENT: Atraumatic, PERRLA Lungs: Clear to auscultation, Normal air movement Cardiovascular: Normal S1, Normal S2 Abdomen: Normal bowel sounds, Soft, No tenderness, No masses Musculoskeletal: Normal sensory function, Normal motor function Extremities: Other (rt elbow flexor surface 1.5 cm area of erythema/) Neuro: Normal gait, Normal speech Skin: Dry, Intact Psych/Mental Status: Mental status NL, Other (Patient denies suicidal ideation. Reports being anxious.) Medications Current Medications Medications Dose Ordered Sig/Jeremiah Route Start Time Stop Time Status Last Admin Dose Admin Aspirin 81 mg DAILY PO 10/23/24 10:00 11/03/24 10:03 81 MG Atorvastatin Calcium 20 mg HS PO 10/22/24 22:00 11/02/24 21:52 20 MG Docusate Sodium 100 mg BIDPRN PRN PO 10/22/24 18:15 Acetaminophen 650 mg Q6HP PRN PO 10/22/24 18:15 Hydralazine HCl 10 mg Q6HP PRN IV 10/22/24 18:15 Diagnostic Test (Pha) 1 strip ACHS 10/24/24 17:00 11/03/24 12:28 1 STRIP Insulin Human Regular AC SC 10/24/24 17:00 11/03/24 12:33 4 UNITS Insulin Human Regular HS SC 10/24/24 22:00 11/02/24 22:00 4 UNITS Dextrose 50 ml UD PRN IV 10/24/24 12:00 Gabapentin 600 mg TID PO 10/27/24 22:00 11/03/24 06:32 600 MG Sertraline HCl 25 mg DAILY PO 10/28/24 10:00 11/03/24 10:02 25 MG Quetiapine Fumarate 50 mg HS PO 10/27/24 22:00 11/02/24 21:52 50 MG Enoxaparin Sodium 40 mg DAILY SC 10/29/24 10:00 10/31/24 10:12 40 MG Alprazolam 0.25 mg Q8HP PRN PO 10/29/24 09:45 11/03/24 06:32 0.25 MG Insulin Glargine 50 units DAILY@1000 SC 11/01/24 10:00 11/03/24 10:09 50 UNITS Acetaminophen/ Hydrocodone Bitart 1 tab Q6HP PRN PO 10/31/24 14:15 11/02/24 21:52 1 TAB Insulin Glargine 20 units HS SC 11/02/24 22:00 11/02/24 22:48 20 UNITS Lorazepam 1 mg Q8HP PRN IV 11/02/24 23:00 11/02/24 23:30 1 MG Laboratory Results Laboratory Tests 10/28/24 13:18 Microbiology Microbiology Date/Time Source Procedure Growth Status 10/31/24 06:40 Arm Right Gram Stain - Final Complete 10/31/24 06:40 Wound Culture - Final Staphylococcus aureus Streptococcus Group B Complete Labs and/or images reviewed: Labs reviewed by me Assessment/Plan Assessment/Plan -history of CAD, ruled out ACS -alcohol withdrawal -alcoholism -diabetes mellitus -obesity -dyslipidemia -medication noncompliance -probable acute pulmonary vascular congestion from systolic failure Plan: Events: No events overnight. Pending discharge placement. -Psych meds per recommendations. Add prn Xanax -increase Lantus dosing to b.i.d. -regular insulin sliding scale -continue statin -social service consultation for discharge planning -continuing wound care This medical document was created using an electronic medical record system with [employer] computerized dictation system. Although this document has been carefully reviewed, there may still be some phonetic and typographical errors. These areas are purely typographical due to imperfections of the software programs, and do not reflect any compromise in the patient's medical care. Plan discussed with: Patient Date of Service: Nov 03, 2024 Billing Provider: MARY NEUMANN MD Common Visit Codes: [id number] INP/OBS CARE(HIGH) MARY NEUMANN MD Nov 03, 2024 13:58
[2024-11-03] MEDS: ACETAMINOPHEN 325 MG TAB PO PRN (17:35)
[2024-11-04 09:00] VITALS: BP 92/58; PULSE 87; RESP 17; TEMP 99.9; O2SAT 92
[2024-11-04 13:00] VITALS: BP 117/74; PULSE 82; RESP 17; TEMP 98; O2SAT 96
[2024-11-04 16:57] VITALS: BP 106/73; PULSE 74; RESP 17; TEMP 97.3; O2SAT 92
[2024-11-04 21:00] VITALS: BP 96/60; PULSE 62; RESP 18; TEMP 97.5; O2SAT 95
--- NOTE | 2024-11-04 22:24 | DVHPN2 ---
Subjective The patient is seen and examined at bedside. No complaint today. Reviewed: Care Plan, H&P, Labs, Medications Changes from previous H/P or p: No Changes General: Per HPI Eyes: No Pain, No Vision change, No Conjunctivae inflammation, No Eyelid inflammation, No Other, No Redness ENT: No Ear pain, No Ear discharge, No Nose pain, No Nose discharge, No Nose congestion, No Mouth pain, No Mouth swelling, No Throat pain, No Throat swelling, No Other Cardiovascular: Chest Pain; No Palpitations, No Orthopnea, No Paroxysmal Noc. Dyspnea, No Edema, No Lt Headedness, No Other Respiratory: No Cough, No Dry, No Shortness of breath, No SOB with excertion, No Wheezing, No Hemoptysis, No Pleuritic Pain, No Sputum, No Other Gastrointestinal: No Nausea, No Vomiting, No Abdominal Pain, No Diarrhea, No Constipation, No Melena, No Hematochezia, No Other Genitourinary: No Dysuria, No Frequency, No Incontinence, No Hematuria, No Retention, No Other Musculoskeletal: No other, No neck pain, No shoulder pain, No arm pain, No back pain, No hand pain, No leg pain, No foot pain Skin: No Rash, No Lesions, No Jaundice, No Bruising, No Other Objective Vitals Vital Signs Date Time Temp Pulse Resp B/P (MAP) Pulse Ox O2 Delivery O2 Flow Rate FiO2 11/04/24 21:00 97.5 62 18 96/60 (72) 95 97.5 11/04/24 08:00 Room Air* 0 21 Intake/Output Intake and Output 11/04/24 07:00 Intake Total 2160 ml Output Total 1400 ml Balance 760 ml Intake Oral 2160 ml Output Urine Total 1400 ml General Appearance: Alert, Oriented X3, Cooperative, mild distress HEENT: Atraumatic, PERRLA Lungs: Clear to auscultation, Normal air movement Cardiovascular: Normal S1, Normal S2 Abdomen: Normal bowel sounds, Soft, No tenderness, No masses Musculoskeletal: Normal sensory function, Normal motor function Extremities: Other (rt elbow flexor surface 1.5 cm area of erythema/) Neuro: Normal gait, Normal speech Skin: Dry, Intact Psych/Mental Status: Mental status NL, Other (Patient denies suicidal ideation. Reports being anxious.) Medications Current Medications Medications Dose Ordered Sig/Jeremiah Route Start Time Stop Time Status Last Admin Dose Admin Aspirin 81 mg DAILY PO 10/23/24 10:00 11/04/24 11:19 81 MG Atorvastatin Calcium 20 mg HS PO 10/22/24 22:00 11/04/24 21:27 20 MG Docusate Sodium 100 mg BIDPRN PRN PO 10/22/24 18:15 Acetaminophen 650 mg Q6HP PRN PO 10/22/24 18:15 11/03/24 17:35 650 MG Hydralazine HCl 10 mg Q6HP PRN IV 10/22/24 18:15 Diagnostic Test (Pha) 1 strip ACHS 10/24/24 17:00 11/04/24 21:49 1 STRIP Insulin Human Regular AC SC 10/24/24 17:00 11/04/24 18:18 8 UNITS Insulin Human Regular HS SC 10/24/24 22:00 11/04/24 21:48 10 UNITS Dextrose 50 ml UD PRN IV 10/24/24 12:00 Gabapentin 600 mg TID PO 10/27/24 22:00 11/04/24 21:27 600 MG Sertraline HCl 25 mg DAILY PO 10/28/24 10:00 11/04/24 11:20 25 MG Quetiapine Fumarate 50 mg HS PO 10/27/24 22:00 11/04/24 21:27 50 MG Enoxaparin Sodium 40 mg DAILY SC 10/29/24 10:00 10/31/24 10:12 40 MG Alprazolam 0.25 mg Q8HP PRN PO 10/29/24 09:45 11/04/24 18:12 0.25 MG Insulin Glargine 50 units DAILY@1000 SC 11/01/24 10:00 11/04/24 11:26 50 UNITS Acetaminophen/ Hydrocodone Bitart 1 tab Q6HP PRN PO 10/31/24 14:15 11/04/24 15:50 1 TAB Insulin Glargine 20 units HS SC 11/02/24 22:00 11/04/24 21:49 20 UNITS Lorazepam 1 mg Q8HP PRN IV 11/02/24 23:00 11/04/24 22:11 1 MG Laboratory Results Laboratory Tests 10/28/24 13:18 Microbiology Microbiology Date/Time Source Procedure Growth Status 10/31/24 06:40 Arm Right Gram Stain - Final Complete 10/31/24 06:40 Wound Culture - Final Staphylococcus aureus Streptococcus Group B Complete Labs and/or images reviewed: Labs reviewed by me Assessment/Plan Assessment/Plan -history of CAD, ruled out ACS -alcohol withdrawal -alcoholism -diabetes mellitus -obesity -dyslipidemia -medication noncompliance -probable acute pulmonary vascular congestion from systolic failure Plan: Continuing current management. Continuing with Lantus and sliding scale insulin Continuing psych med Waiting for placement. tiller worker has been consulted Continuing wound care. This medical document was created using an electronic medical record system with [employer] computerized dictation system. Although this document has been carefully reviewed, there may still be some phonetic and typographical errors. These areas are purely typographical due to imperfections of the software programs, and do not reflect any compromise in the patient's medical care. Plan discussed with: Patient Date of Service: Nov 04, 2024 Billing Provider: MARY NEUMANN MD Common Visit Codes: [id number] INP/OBS CARE(HIGH) MARY NEUMANN MD Nov 04, 2024 22:24
[2024-11-05] VITALS (7 sets, daily range): BP systolic 103–127; BP diastolic 67–87; PULSE 56–80; RESP 8–19; TEMP 97.4–98.2; O2SAT 91–98
--- NOTE | 2024-11-05 15:59 | DVHPN2 ---
Subjective Denies any symptoms Reviewed: Care Plan, H&P, Labs, Medications Changes from previous H/P or p: Changes General: Per HPI Eyes: No Pain, No Vision change, No Conjunctivae inflammation, No Eyelid inflammation, No Other, No Redness ENT: No Ear pain, No Ear discharge, No Nose pain, No Nose discharge, No Nose congestion, No Mouth pain, No Mouth swelling, No Throat pain, No Throat swelling, No Other Cardiovascular: Chest Pain; No Palpitations, No Orthopnea, No Paroxysmal Noc. Dyspnea, No Edema, No Lt Headedness, No Other Respiratory: No Cough, No Dry, No Shortness of breath, No SOB with excertion, No Wheezing, No Hemoptysis, No Pleuritic Pain, No Sputum, No Other Gastrointestinal: No Nausea, No Vomiting, No Abdominal Pain, No Diarrhea, No Constipation, No Melena, No Hematochezia, No Other Genitourinary: No Dysuria, No Frequency, No Incontinence, No Hematuria, No Retention, No Other Musculoskeletal: No other, No neck pain, No shoulder pain, No arm pain, No back pain, No hand pain, No leg pain, No foot pain Skin: No Rash, No Lesions, No Jaundice, No Bruising, No Other Objective Vitals Vital Signs Date Time Temp Pulse Resp B/P (MAP) Pulse Ox O2 Delivery O2 Flow Rate FiO2 11/05/24 13:20 97.4 75 19 127/80 (96) 95 97.4 11/05/24 08:00 Room Air* 0 21 Intake/Output Intake and Output 11/05/24 07:00 Intake Total 1400 ml Output Total 2250 ml Balance -850 ml Intake Oral 1400 ml Output Urine Total 2250 ml # Voids 5 General Appearance: Alert, Oriented X3, Cooperative, mild distress HEENT: Atraumatic, PERRLA Lungs: Clear to auscultation, Normal air movement Cardiovascular: Normal S1, Normal S2 Abdomen: Normal bowel sounds, Soft, No tenderness, No masses Musculoskeletal: Normal sensory function, Normal motor function Extremities: Other (rt elbow flexor surface 1.5 cm area of erythema/) Neuro: Normal gait, Normal speech Skin: Dry, Intact Psych/Mental Status: Mental status NL, Other (Patient denies suicidal ideation. Reports being anxious.) Medications Current Medications Medications Dose Ordered Sig/Jeremiah Route Start Time Stop Time Status Last Admin Dose Admin Aspirin 81 mg DAILY PO 10/23/24 10:00 11/05/24 09:33 81 MG Atorvastatin Calcium 20 mg HS PO 10/22/24 22:00 11/04/24 21:27 20 MG Docusate Sodium 100 mg BIDPRN PRN PO 10/22/24 18:15 Acetaminophen 650 mg Q6HP PRN PO 10/22/24 18:15 11/03/24 17:35 650 MG Hydralazine HCl 10 mg Q6HP PRN IV 10/22/24 18:15 Diagnostic Test (Pha) 1 strip ACHS 10/24/24 17:00 11/05/24 11:42 1 STRIP Insulin Human Regular AC SC 10/24/24 17:00 11/05/24 11:30 8 UNITS Insulin Human Regular HS SC 10/24/24 22:00 11/04/24 21:48 10 UNITS Dextrose 50 ml UD PRN IV 10/24/24 12:00 Gabapentin 600 mg TID PO 10/27/24 22:00 11/05/24 13:30 600 MG Sertraline HCl 25 mg DAILY PO 10/28/24 10:00 11/05/24 09:33 25 MG Quetiapine Fumarate 50 mg HS PO 10/27/24 22:00 11/04/24 21:27 50 MG Enoxaparin Sodium 40 mg DAILY SC 10/29/24 10:00 11/05/24 09:34 40 MG Alprazolam 0.25 mg Q8HP PRN PO 10/29/24 09:45 11/05/24 13:30 0.25 MG Insulin Glargine 50 units DAILY@1000 SC 11/01/24 10:00 11/05/24 09:43 50 UNITS Acetaminophen/ Hydrocodone Bitart 1 tab Q6HP PRN PO 10/31/24 14:15 11/05/24 03:02 1 TAB Insulin Glargine 20 units HS SC 11/02/24 22:00 11/04/24 21:49 20 UNITS Lorazepam 1 mg Q8HP PRN IV 11/02/24 23:00 11/05/24 09:34 1 MG Laboratory Results Laboratory Tests 10/28/24 13:18 Microbiology Microbiology Date/Time Source Procedure Growth Status 10/31/24 06:40 Arm Right Gram Stain - Final Complete 10/31/24 06:40 Wound Culture - Final Staphylococcus aureus Streptococcus Group B Complete Labs and/or images reviewed: Labs reviewed by me, Image(s) reviewed by me Assessment/Plan Assessment/Plan Impression: -history of CAD, ruled out ACS -alcohol withdrawal -alcoholism -diabetes mellitus -obesity -dyslipidemia -medication noncompliance -probable acute pulmonary vascular congestion from systolic failure Plan: Events: No events overnight. Pending discharge placement. -continue antipsychotics, antianxiety medications -continue Lantus 50 units in a.m., 25 units in p.m. -regular insulin sliding scale -continue statin -social service consultation for discharge planning Total time spent with patient discussing and formulating plan of care: 35 minutes. This medical document was created using an electronic medical record system with [employer] dictation system. Although this document has been carefully reviewed, there may still be some phonetic and typographical errors. These areas are purely typographical due to imperfections of the software programs, and do not reflect any compromise in the patient's medical care. Plan discussed with: Patient, Other (RN) Date of Service: Nov 05, 2024 Billing Provider: GALLITO GIBSON NP Common Visit Codes: [id number] INP/OBS CARE(HIGH) GALLITO GIBSON NP Nov 05, 2024 15:59
[2024-11-05] MEDS: INSULIN LANTUS (GLARGINE) 1 /0.01ml (100units/ml) SC SCH (22:39)
[2024-11-06] VITALS (7 sets, daily range): BP systolic 115–137; BP diastolic 71–85; PULSE 59–76; RESP 15–20; TEMP 97.5–97.9; O2SAT 94–98
--- NOTE | 2024-11-06 13:19 | DVHPN2 ---
Subjective Denies any symptoms Reviewed: Care Plan, H&P, Labs, Medications Changes from previous H/P or p: No Changes General: Per HPI Eyes: No Pain, No Vision change, No Conjunctivae inflammation, No Eyelid inflammation, No Other, No Redness ENT: No Ear pain, No Ear discharge, No Nose pain, No Nose discharge, No Nose congestion, No Mouth pain, No Mouth swelling, No Throat pain, No Throat swelling, No Other Cardiovascular: Chest Pain; No Palpitations, No Orthopnea, No Paroxysmal Noc. Dyspnea, No Edema, No Lt Headedness, No Other Respiratory: No Cough, No Dry, No Shortness of breath, No SOB with excertion, No Wheezing, No Hemoptysis, No Pleuritic Pain, No Sputum, No Other Gastrointestinal: No Nausea, No Vomiting, No Abdominal Pain, No Diarrhea, No Constipation, No Melena, No Hematochezia, No Other Genitourinary: No Dysuria, No Frequency, No Incontinence, No Hematuria, No Retention, No Other Musculoskeletal: No other, No neck pain, No shoulder pain, No arm pain, No back pain, No hand pain, No leg pain, No foot pain Skin: No Rash, No Lesions, No Jaundice, No Bruising, No Other Objective Vitals Vital Signs Date Time Temp Pulse Resp B/P (MAP) Pulse Ox O2 Delivery O2 Flow Rate FiO2 11/06/24 12:53 97.6 62 15 137/84 (101) 95 97.6 11/06/24 08:00 Room Air* 0 21 Intake/Output Intake and Output 11/06/24 07:00 Intake Total 1570 ml Output Total 1850 ml Balance -280 ml Intake Oral 1570 ml Output Urine Total 1850 ml # Bowel Movements 1 General Appearance: Alert, Oriented X3, Cooperative, mild distress HEENT: Atraumatic, PERRLA Lungs: Clear to auscultation, Normal air movement Cardiovascular: Normal S1, Normal S2 Abdomen: Normal bowel sounds, Soft, No tenderness, No masses Musculoskeletal: Normal sensory function, Normal motor function Extremities: Other (rt elbow flexor surface 1.5 cm area of erythema/) Neuro: Normal gait, Normal speech Skin: Dry, Intact Psych/Mental Status: Mental status NL, Other (Patient denies suicidal ideation. Reports being anxious.) Medications Current Medications Medications Dose Ordered Sig/Jeremiah Route Start Time Stop Time Status Last Admin Dose Admin Aspirin 81 mg DAILY PO 10/23/24 10:00 11/06/24 10:20 81 MG Atorvastatin Calcium 20 mg HS PO 10/22/24 22:00 11/05/24 22:31 20 MG Docusate Sodium 100 mg BIDPRN PRN PO 10/22/24 18:15 Acetaminophen 650 mg Q6HP PRN PO 10/22/24 18:15 11/03/24 17:35 650 MG Hydralazine HCl 10 mg Q6HP PRN IV 10/22/24 18:15 Diagnostic Test (Pha) 1 strip ACHS 10/24/24 17:00 11/06/24 11:54 1 STRIP Insulin Human Regular AC SC 10/24/24 17:00 11/06/24 11:55 12 UNITS Insulin Human Regular HS SC 10/24/24 22:00 11/05/24 22:34 6 UNITS Dextrose 50 ml UD PRN IV 10/24/24 12:00 Gabapentin 600 mg TID PO 10/27/24 22:00 11/06/24 06:54 600 MG Sertraline HCl 25 mg DAILY PO 10/28/24 10:00 11/06/24 10:20 25 MG Quetiapine Fumarate 50 mg HS PO 10/27/24 22:00 11/05/24 22:32 50 MG Enoxaparin Sodium 40 mg DAILY SC 10/29/24 10:00 11/05/24 09:34 40 MG Alprazolam 0.25 mg Q8HP PRN PO 10/29/24 09:45 11/05/24 13:30 0.25 MG Insulin Glargine 50 units DAILY@1000 SC 11/01/24 10:00 11/06/24 10:25 50 UNITS Acetaminophen/ Hydrocodone Bitart 1 tab Q6HP PRN PO 10/31/24 14:15 11/06/24 05:46 1 TAB Lorazepam 1 mg Q8HP PRN IV 11/02/24 23:00 11/06/24 10:18 1 MG Insulin Glargine 25 units HS SC 11/05/24 22:00 11/05/24 22:39 25 UNITS Laboratory Results Laboratory Tests 10/28/24 13:18 Microbiology Microbiology Date/Time Source Procedure Growth Status 10/31/24 06:40 Arm Right Gram Stain - Final Complete 10/31/24 06:40 Wound Culture - Final Staphylococcus aureus Streptococcus Group B Complete Labs and/or images reviewed: Labs reviewed by me, Image(s) reviewed by me Assessment/Plan Assessment/Plan Impression: -history of CAD, ruled out ACS -alcohol withdrawal -alcoholism -diabetes mellitus -obesity -dyslipidemia -medication noncompliance -probable acute pulmonary vascular congestion from systolic failure Plan: Events: No events overnight. Pending discharge placement. Blood sugars still uncontrolled. Increase Lantus. -continue antipsychotics, antianxiety medications -continue Lantus 55 units in a.m., 25 units in p.m. -regular insulin sliding scale -continue statin -social service consultation for discharge planning Total time spent with patient discussing and formulating plan of care: 35 minutes. This medical document was created using an electronic medical record system with [employer] dictation system. Although this document has been carefully reviewed, there may still be some phonetic and typographical errors. These areas are purely typographical due to imperfections of the software programs, and do not reflect any compromise in the patient's medical care. Plan discussed with: Patient, Other (RN) My Orders Orders - GALLITO GIBSON NP Procedure Category Date Status Time Insulin Lantus PHA 11/05/24 In Process (Glargine) (Lantus) 22:00 Insulin Lantus PHA 11/07/24 Transmitted (Glargine) (Lantus) 10:00 Date of Service: Nov 06, 2024 Billing Provider: GALLITO GIBSON NP Common Visit Codes: [id number] INP/OBS CARE(HIGH) GALLITO GIBSON NP Nov 06, 2024 13:19
[2024-11-07 00:43] VITALS: BP 118/69; PULSE 55; RESP 20; TEMP 97.6; O2SAT 94
[2024-11-07 05:00] VITALS: BP 111/73; PULSE 68; RESP 20; TEMP 97.5; O2SAT 96
[2024-11-07 09:06] VITALS: BP 122/78; PULSE 75; RESP 17; TEMP 97.9; O2SAT 96
[2024-11-07] MEDS: INSULIN LANTUS (GLARGINE) 1 /0.01ml (100units/ml) SC SCH (09:32)
[2024-11-07] MEDS ORDERED: LISI20TA56 PO (10:36)
[2024-11-07] MEDS ORDERED: TRAZ1TAB12 PO (10:36)
[2024-11-07] MEDS ORDERED: INSLANTI SC (10:36)
[2024-11-07] MEDS ORDERED: METF-370 PO (10:36)
[2024-11-07] MEDS ORDERED: GABA-1250 PO (10:36)
[2024-11-07] MEDS ORDERED: ATOR20TA50 PO (10:36)
[2024-11-07] MEDS ORDERED: HYDR-4069 PO (10:38)
[2024-11-07] MEDS ORDERED: QUET1TAB11 PO (10:38)
[2024-11-07] MEDS ORDERED: SERT50TA PO (10:38)
[2024-11-07 12:12] VITALS: BP 151/100
[2024-11-07] MEDS ORDERED: INSU1INJ19 SC (15:04)
== END 2024-11-07 12:42 | disposition home or self-care (01) | DRG 133 ==
LOC: ER 14:48 → EDBD 14:48 → OVERFLOW 18:11 → TELE-CENTR 10-23 22:00 → TELE-EAST 10-28 00:18 → EAST 10-30 07:57
PROVIDERS: ADMIT Nurse Practitioner Acute Care; ATTEND Nurse Practitioner Acute Care
DX: J96.00 Acute respiratory failure, unspecified whether with hypoxia or hypercapnia (principal); I50.23 Acute on chronic systolic (congestive) heart failure; R45.851 Suicidal ideations; E11.40 Type 2 diabetes mellitus with diabetic neuropathy, unspecified; I80.8 Phlebitis and thrombophlebitis of other sites; F25.1 Schizoaffective disorder, depressive type; L03.113 Cellulitis of right upper limb; E11.65 Type 2 diabetes mellitus with hyperglycemia; I25.10 Atherosclerotic heart disease of native coronary artery without angina pectoris; E87.6 Hypokalemia; E66.9 Obesity, unspecified; E78.5 Hyperlipidemia, unspecified; F11.10 Opioid abuse, uncomplicated; F41.9 Anxiety disorder, unspecified; F10.139 Alcohol abuse with withdrawal, unspecified; Y90.9 Presence of alcohol in blood, level not specified; Z79.4 Long term (current) use of insulin; Z79.899 Other long term (current) drug therapy; Z79.84 Long term (current) use of oral hypoglycemic drugs; Z95.1 Presence of aortocoronary bypass graft; Z79.82 Long term (current) use of aspirin; Z79.1 Long term (current) use of non-steroidal anti-inflammatories (NSAID); Z79.891 Long term (current) use of opiate analgesic; Z56.0 Unemployment, unspecified; Z91.51 Personal history of suicidal behavior; Z91.148 Patient's other noncompliance with medication regimen for other reason; Z68.34 Body mass index [BMI] 34.0-34.9, adult; J98.11 Atelectasis; I11.0 Hypertensive heart disease with heart failure
CPT/HCPCS: 36415; 71045; 80048; 80053; 80307; 82962; 83036; 83880; 84484; 85025; 87077; 87186; 87205; 87804; 93005; 93971; 97110; 97116; 97163; 97530; G0378; J1815; J1885

== ENCOUNTER 2025-01-04 11:44 | Inpatient (IN) | payer MEDICAID ==
[~2025-01-04] VITALS: Ht 180.3 cm; Wt 116.2 kg
[~2025-01-04 11:44] MED LIST changes: -ATOR-47 PO; +ATOR20TA50 PO; -ESCI10TA PO; +FOLI-119 PO; +GABA-1250 PO; +HYDR-4069 PO; -INSLANTI SC; +INSU1INJ19 SC; +MULTTAB99 PO; +QUET1TAB11 PO; +SERT50TA PO; +THIA100T10 PO
--- NOTE | 2025-01-04 12:04 | ED.PDOC ---
Psychiatric HPI Comments 54-year-old male brought in by EMS presents with a chief complaint of alcohol withdrawal. Patient states that he is homeless and has been drinking "100% proof Vodka daily and stopped cold turkey". Patient is anxious upon evaluation. Patient also reports that he has not been taking his medications as he has been out of "all of them for some time now". Patient was recently seen here at this facility on December 20, 2024 due to alcohol intoxication and violent behavior. PMHx: DM, CAD, HTN, HLD PSHx: CABG Allergies: No Known Allergies BEST: ETOH HPI: Poor Historian. Past Medical History: Past Surgical History: REVIEW OF SYSTEMS: CONSTITUTIONAL: Denies acute: fever, diaphoresis, chills, generalized weakness. HEAD: Denies acute: headache, photophobia Eyes: Denies acute: Double vision, vision loss, eye pain, eye discharge. EARS: Denies acute: tinnitus, hearing loss, ear discharge, ear pain, THROAT: Denies acute: sore throat, swelling, difficulty swallowing , pain with swallowing, change in voice. NECK: Denies acute: neck pain, neck swelling, stiff neck. HEART: Denies acute : chest pain, palpitations, LUNGS: Denies acute: SOB, wheezing, cough, hemoptysis ABDOMEN: Denies acute: abdominal pain, Nausea, Vomiting, diarrhea, melena , hematemesis, hematochezia SKIN: Denies acute: rash, redness, lesions, itchiness. EXTREMITIES: Denies acute: calf pain, numbness, tingling, weakness, denies pain in extremity. Denies acute: Low back pain. Neuro: Denies acute: focal neurological deficit, motor or sensory focal neurological deficit, tremors, seizure like activity, confusion, dizziness, change in mental status, loss of bowel or bladder function, cauda equina like symptoms. : Denies acute: dysuria, hematuria, flank pain, increase in urinary frequency. PSYCH: Denies acute: hallucination, suicidal ideation, homicidal ideation. PHYSICAL EXAM: General: ----[id number]----acute distress, awake and alert. Head: normocephalic, atraumatic. Neck: supple, trachea is midline, no swelling. Throat: Normal phonation. Eyes:, no erythema, no purulent discharge, no proptosis, no icterus. Heart: regular rate, regular rhythm, no significant murmur appreciated. Lungs: no apparent respiratory distress, Able to speak in full sentences. No wheezing, no rhonchi, no crackles. No stridors Clear to auscultation bilaterally. Abdomen: non tender to palpation, non distended, soft, no guarding, no rebound, + bowel sounds. Neuro: Awake, Alert, oriented to name, self, situation, follows commands GCS=15. Speech is normal. Noted generalized tremors Skin: no petechia, no purpura, no cyanosis, non-pale, not jaundice. Lower extremities: --trace bilateral- Pitting edema no deformity, no focal swelling, no calf TTP. Makes eye contact. moves all four extremities. Face: no apparent facial droop. Ambulating in the ED independently. No nystagmus. No nuchal rigidity, Kernig's sign, Brudzinski's sign, no meningeal signs. ED COURSE: Chief Complaint: Withdrawal Time Seen by MD: 11:46 Primary Care Provider: UNKNOWN Reviewed Notes: Allergies Information Source: Patient, Emergency Med Personnel Mode of Arrival: EMS Past Medical History PAST MEDICAL HISTORY: CAD, DM, High Lipids, HTN Surgical History: CABG Family History Family History: Reviewed,noncontributory to illness Social History Smoker: Non-Smoker Alcohol: Heavy Drugs: Denies Drug Use Lives In: Other Was a procedure done? Was a procedure done?: No Psych Differential Dx Psych. Differential Dx: Anxiety, Depression OD Differential Dx: Depression, Suicidal Attempt, Suicidal Gesture Intoxication Differential Dx: Alcohol Withdraw Syndrome, Delerium Tremens, Hallucinations, Seizures, Anticholinergic Poisoning, CVA, Dehydration, Depression, Drug-Induced Psychosis, Electrolyte Imbalance, Encephalitis, Encephalopathy, Hepatitis, Hyperthermia, Intoxication, Medical Noncompliance, Personality Disorder, Schizophrenia, Seizure Disorder, Substance Abuse Disorder, Thiamine Deficiency, Thyrotoxicosis X-Ray, Labs, Meds, VS Vital Signs Date Time Temp Pulse Resp B/P (MAP) Pulse Ox O2 Delivery O2 Flow Rate FiO2 01/04/25 21:00 97.9 62 24 123/78 (93) 96 97.9 01/04/25 19:20 98.8 66 20 124/80 (95) 94 98.8 01/04/25 19:15 Room Air* 0 21 01/04/25 18:00 69 22 115/85 (95) 94 01/04/25 16:37 73 20 122/60 (80) 97 01/04/25 16:00 71 01/04/25 14:15 73 15 96 Nasal Cannula* 2 28 01/04/25 12:38 70 10 127/82 (97) 96 01/04/25 12:06 78 01/04/25 12:01 98.0 98 26 117/84 (95) 100 98.0 Lab Test 01/04/25 18:58 01/04/25 15:10 01/04/25 13:20 01/04/25 12:05 Range/Units Urine Color Yellow Yellow Urine Clarity Clear Clear Urine pH 7.0 5.0-9.0 Urine Specific [place] 1.014 1.001-1.035 Urine Protein Negative Negative Urine Ketones Trace Negative Urine Blood Negative Negative /uL Urine Nitrite Negative Negative Urine Bilirubin Negative Negative Urine Urobilinogen Normal Negative mg/dL Urine Leukocyte Esterase Negative Negative /uL Urine RBC 1 0 - 3 /hpf Urine Microscopic WBC < 1 0-3 /HPF Urine Squamous Epithelial Cells None seen <5 /hpf Urine Bacteria Few H None Seen /hpf Urine Mucus Few None Seen Urine Glucose 4+ H Normal mg/dL Urine Opiates Screen Neg NEGATIVE Urine Fentanyl Screen Neg NEGATIVE Urine Barbiturates Screen Neg NEGATIVE Urine Phencyclidine Screen Neg NEGATIVE Urine Amphetamines Screen Neg NEGATIVE Urine Benzodiazepines Screen Pos NEGATIVE Urine Cocaine Screen Neg NEGATIVE Urine Cannabinoids Screen Pos NEGATIVE Lactic Acid Level 1.2 2.5 *H 0.4-2.0 mmol/L Troponin I High Sensitivity 3 L < 3 L 3 L </=54 ng/L White Blood Count 5.4 4.4-10.8 10^3/uL Red Blood Count 5.68 4.5-5.90 10^6/uL Hemoglobin 17.3 13.5-17.5 g/dL Hematocrit 50.7 41.0-53.0 % Mean Corpuscular Volume 89.2 80.0-100.0 fL Mean Corpuscular Hemoglobin 30.4 28.0-32.0 pg Mean Corpuscular Hemoglobin Concent 34.1 32.0-36.0 g/dL Red Cell Distribution Width 16.2 H 11.8-14.3 % Platelet Count 212 140-450 10^3/uL Mean Platelet Volume 9.9 6.9-10.8 fL Neutrophils (%) (Auto) 49.3 37.0-80.0 % Lymphocytes (%) (Auto) 40.1 10.0-50.0 % Monocytes (%) (Auto) 6.7 0.0-12.0 % Eosinophils (%) (Auto) 3.0 0.0-7.0 % Basophils (%) (Auto) 0.9 0.0-2.0 % Neutrophils # (Auto) 2.7 1.6-8.6 10 ^3/uL Lymphocytes # (Auto) 2.2 0.4-5.4 10 ^3/uL Monocytes # (Auto) 0.4 0-1.3 10 ^3/uL Eosinophils # (Auto) 0.2 0-0.8 10 ^3/uL Basophils # (Auto) 0.1 0-0.2 10 ^3/uL Nucleated Red Blood Cells 0.2 % Sodium Level 133 L 136-145 mmol/L Potassium Level 3.9 3.5-5.1 mmol/L Chloride Level 103 98-107 mmol/L Carbon Dioxide Level 21 20-31 mmol/L Anion Gap 9 5-15 Blood Urea Nitrogen 7 L 9-23 mg/dL Creatinine 0.92 0.700-1.30 mg/dL Glomerular Filtration Rate Calc 98 >90 mL/min BUN/Creatinine Ratio 7.6 L 10.0-20.0 Serum Glucose 309 H 74-106 mg/dL Calcium Level 10.0 8.7-10.4 mg/dL Magnesium Level 1.6 1.6-2.6 mg/dL Total Bilirubin 1.4 H 0.2-1.0 mg/dL Aspartate Amino Transferase (AST) 14 13-40 U/L Alanine Aminotransferase (ALT) 20 7-40 U/L Alkaline Phosphatase 131 H 46-116 U/L Total Protein 7.2 5.7-8.2 g/dL Albumin 4.3 3.2-4.8 g/dL Plasma/Serum Blood Alcohol 3.5 <10 mg/dL Current Medications Medications (Trade) Dose Ordered Sig/Jeremiah Route Start Time Stop Time Status Last Admin Lorazepam (Ativan Inj) 1 mg ONCE ONCE IV 01/04/25:00 01/04/25 12:01 DC 01/04/25 12:29 Chlordiazepoxide HCl (Librium Capsule) 50 mg ONCE ONCE PO 01/04/25 12:00 01/04/25 12:01 DC 01/04/25 13:32 Thiamine HCl 100 mg ONCE ONCE PO 01/04/25 12:15 01/04/25 12:16 DC 01/04/25 13:32 Sodium Chloride 1,000 ml @ 1,000 mls/hr Q1H ONCE IV 01/04/25 13:00 01/04/25 13:59 DC 01/04/25 13:21 Lorazepam (Ativan Inj) 1 mg ONCE ONCE IV 01/04/25 16:30 01/04/25 16:31 DC 01/04/25 16:37 Lorazepam (Ativan Inj) 1 mg Q2HP PRN IV 01/04/25 21:45 01/04/25 22:23 Sodium Chloride 1,000 ml @ 60 mls/hr [id number] IV 01/04/25 21:45 01/04/25 22:21 PATIENT: ARSALAN LAYTON LACCT: [id number]: [id number] : 1970 LOC: ER ROOM / BED: / AGE / SEX: 54 / M ADM STATUS: REG ER SERVICE 1152 ORDERING PHYSICIAN: TORITO CARBAJAL DO PROCEDURE(s): CXRP - CHEST PORTABLE REASON: ETOH problems ORDER NUMBER(s): [id number], ACCESSION NUMBER(s): [id number] CHEST RADIOGRAPH Indication: ETOH problems Technique: Single frontal view of the chest was obtained COMPARISON: XY CHEST PORTABLE on DOS: 12/20/24, XY CHEST XRAY 1 VIEW on DOS: 12/19/24, XY CHEST PORTABLE on DOS: 10/28/24, XY CHEST PORTABLE on DOS: 10/24/24, XY CHEST PORTABLE on DOS: 10/22/24 FINDINGS: Lines and Tubes: Median sternotomy Lungs: Clear Pleura: No effusion. No pneumothorax. Cardiomediastinal contours: Unremarkable Bones: Unremarkable IMPRESSION: No acute disease. ATED BY: FELIX ZHANG MD DICTATED DATE/TIME: 01/04/25 1301 SIGNED BY: FELIX ZHANG MD SIGNED DATE/TIME: 01/04/25 1301 Time of 1ST Reevaluation: 12:16 Reevaluation 1ST: Unchanged Time of 2ND Reevaluation: 23:02 Reevaluation 2ND: Improved Patient Education/Counseling: Diagnosis, Treatment Family Education/Counseling: No Family Present Comments Patient presented with the above HPI.--alcohol withdrawal----workup was initiated. patient was found with the above mentioned diagnosis. the following medications were ordered: please refer to order lists of meds and tests obtained by myself Dr. Carbajal. Patient ED course and VS have been stabilized. Patient has been reassessed in the ED and remained in a stable condition. Pertinent incidental findings were discussed with the patient and/or family. Patient/family voices understanding and is agreeable with plan. Patient has been observed in the ED adequate length of time to insure improvement/stability. Escalation of care considered: Consideration of escalation to observation or admission Patient was ADMITTED to the medicine team for further evaluation and treatment of their presentation. All the reports of any imaging studies that were ordered by myself were reviewed by myself. Departure 1 Departure Time of Disposition: 12:29 Impression: Primary Impression: Alcohol withdrawal Additional Impressions: Noncompliance with medications Homeless Alcohol abuse Diabetes mellitus with hyperglycemia Disposition: ADMITTED INPATIENT Condition: Guarded Discharged With: Self Critical Care Note Critical Care Time?: No I personally scribed for TORITO CARBAJAL DO ([email or web address]) on 01/04/25 at 12:04. Electronically submitted by Gabriel Farr ([email or web address]). I personally scribed for TORITO CARBAJAL DO ([email or web address]) on 01/04/25 at 13:22. Electronically submitted by Gabriel Farr ([email or web address]). TORITO CARBAJAL DO January 04, 2025 12:04
[2025-01-04 12:13] LABS: Basophils # (auto) 0.1 10 ^3/uL (0-0.2); Basophils % (auto) 0.9 % (0.0-2.0); Eosinophils # (auto) 0.2 10 ^3/uL (0-0.8); Hematocrit 50.7 % (41.0-53.0); Hemoglobin 17.3 g/dL (13.5-17.5); Lymphocytes # (auto) 2.2 10 ^3/uL (0.4-5.4); Lymphocytes % (auto) 40.1 % (10.0-50.0); Mean Corpuscular Hemoglobin 30.4 pg (28.0-32.0); Mean Corpuscular Hgb Conc. 34.1 g/dL (32.0-36.0); Mean Corpuscular Volume 89.2 fL (80.0-100.0); Monocytes # (auto) 0.4 10 ^3/uL (0-1.3); Monocytes % (auto) 6.7 % (0.0-12.0); Neutrophils # (auto) 2.7 10 ^3/uL (1.6-8.6); Neutrophils % (auto) 49.3 % (37.0-80.0); Nucleated Red Blood Cells % 0.2 %; Platelet Count (auto) 212 10^3/uL (140-450); Red Blood Cells 5.68 10^6/uL (4.5-5.90); Red Cell Distribution Width 16.2 % (11.8-14.3); White Blood Cell 5.4 10^3/uL (4.4-10.8)
[2025-01-04] MEDS: LORazepam 2MG/ML-1ML VIAL IV ONE ×2 (12:29→16:37)
[2025-01-04 12:41] LABS: Alanine Aminotransferase 20 U/L (7-40); Albumin 4.3 g/dL (3.2-4.8); Anion Gap 9 (5-15); Aspartate Aminotransferase 14 U/L (13-40); BUN/Creatinine Ratio 7.6 (10.0-20.0); Blood Alcohol 3.5 mg/dL (<10); Carbon Dioxide 21 mmol/L (20-31); Chloride 103 mmol/L (98-107); Magnesium 1.6 mg/dL (1.6-2.6); Potassium 3.9 mmol/L (3.5-5.1); Total Protein 7.2 g/dL (5.7-8.2)
[2025-01-04 12:43] LABS: Alkaline Phosphatase 131 U/L (46-116); Bilirubin, Total 1.4 mg/dL (0.2-1.0); Blood Urea Nitrogen 7 mg/dL (9-23); Glucose 309 mg/dL (74-106); Sodium 133 mmol/L (136-145)
[2025-01-04 12:45] LABS: Lactic Acid w/Reflex 2.5 mmol/L (0.4-2.0)
--- NOTE | 2025-01-04 13:03 | DVH ---
CHEST RADIOGRAPH Indication: ETOH problems Technique: Single frontal view of the chest was obtained COMPARISON: XY CHEST PORTABLE on DOS: 12/20/24, XY CHEST XRAY 1 VIEW on DOS: 12/19/24, XY CHEST PORTABL E on DOS: 10/28/24, XY CHEST PORTABLE on DOS: 10/24/24, XY CHEST PORTABLE on DOS: 10/22/24 FINDINGS: Lines and Tubes: Median sternotomy Lungs: Clear Pleura: No effusion. No pneumothorax. Cardiomediastinal contours: Unremarkable Bones: Unremarkable IMPRESSION: No acute disease.
[2025-01-04] MEDS: SODIUM CHLORIDE 0.9% 1,000 ML IV ONE (13:21)
[2025-01-04] MEDS: chlordiazePOXIDE HCL 25 MG CAP PO ONE (13:32)
[2025-01-04] MEDS: THIAMINE HCL 100 MG TAB PO ONE (13:32)
[2025-01-04 14:15] VITALS: PULSE 73; RESP 15; O2SAT 96
--- NOTE | 2025-01-04 19:06 | ECG ---
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
[2025-01-04 19:25] LABS: Urine Bacteria FEW /hpf (None Seen); Urine Blood Negative /uL (Negative); Urine Clarity Clear (Clear); Urine Color Yellow (Yellow); Urine Mucus FEW (None Seen); Urine Protein, UAD Negative (Negative); Urine Specific Gravity 1.014 (1.001-1.035); Urine Squamous Epithelial Cell None Seen /hpf (<5); Urine Urobilinogen Normal (Negative); Urine WBC < 1 /HPF (0-3)
[2025-01-04 19:38] LABS: Benzodiazephine Screen, Urine Pos (NEGATIVE)
[2025-01-04 19:39] LABS: Amphetamine Screen, Urine Neg (NEGATIVE); Barbiturate Scree,Urine Neg (NEGATIVE); Cannabinoid Screen, Urine Pos (NEGATIVE); Cocaine Screen, Urine Neg (NEGATIVE); Opiate Scree,Urine Neg (NEGATIVE); Phencyclidine Screen, Urine Neg (NEGATIVE)
[2025-01-04] MEDS ORDERED: DOCUSATE SOD 100 MG CAP PO PRN (21:45)
[2025-01-04] MEDS ORDERED: DEXTROSE (50%) 50ML SYRG IV PRN (21:45)
[2025-01-04] MEDS ORDERED: ONDANSETRON HCL 4 MG/2 ML VIAL IV PRN (21:45)
[2025-01-04] MEDS ORDERED: hydrALAZINE HCL 20 MG/ML VL IV PRN (21:45)
[2025-01-04] MEDS ORDERED: NITROGLYCERIN 0.4 MG SL TAB SL PRN (22:15)
[2025-01-04] MEDS ORDERED: MORPHINE SULFATE INJ 2 MG/ml SYRG IV PRN (22:15)
--- NOTE | 2025-01-04 22:16 | DVHHP2 ---
History of Present Illness Reason for Visit: Alcohol withdrawal History of Present Illness The patient is a 54-year-old male with past medical history of hypertension, Coronary artery disease, hyperlipidemia, and DM who presented to [facility] ED for evaluation of alcohol withdrawal. Patient admits to drinking vod ka daily, noted to be in alcohol withdrawal symptoms. Patient also reports that he has not been taking his medications as he has been out of "all of them for some time now". Patient was seen and evaluated in the ED, laboratory data shows WBC 5.4, platelets 212, sodium 133, potassium 3.9, BUN 7, creatinine 0.92, glucose 309, total bilirubin 1.4. Please see medication orders section in the computer. On my assessment, patient denied chest pain, no headache, no dizziness, no diaphoresis, no shortness of breaths, no nausea, no vomiting, no fever, no chills. Patient was admitted for further evaluation and medical management. Past Medical History DM, CAD, HTN, HLD Past Surgical History CABG Family History Reviewed, noncontributory to the management of this case. Past Social History The patient is homeless, drinks alcohol heavily, denies smoking, or illicit drugs abuse. Review of Systems Constitutional: Yes: Weakness; No: Fever, Chills, Sweats, Malaise, Other Eyes: No: Pain, Vision change, Conjunctivae inflammation, Eyelid inflammation, Other, Redness ENT: No: Ear pain, Ear discharge, Nose pain, Nose discharge, Nose congestion, Mouth pain, Mouth swelling, Throat pain, Throat swelling, Other Respiratory: No: Cough, Dry, Shortness of breath, SOB with excertion, Wheezing, Hemoptysis, Pleuritic Pain, Sputum, Wheezing, Other Cardiovascular: No: Chest Pain, Palpitations, Orthopnea, Paroxysmal Noc. Dyspnea, Edema, Lt Headedness, Other Gastrointestinal: No: Nausea, Vomiting, Abdominal Pain, Diarrhea, Constipation, Melena, Hematochezia, Other Genitourinary: No Dysuria, No Frequency, No Incontinence, No Hematuria, No Retention, No Other Musculoskeletal: No: other, neck pain, shoulder pain, arm pain, back pain, hand pain, leg pain, foot pain Skin: No: Rash, Lesions, Jaundice, Bruising, Other Neurological: Confusion, Other (Tremors); No: Weakness, Numbness, Incoordination, Change in speech, Seizures Allergies: Coded Allergies: NO KNOWN ALLERGIES (Unverified , 09/10/24) Medications Current Medications Medications Dose Ordered Sig/Jeremiah Route Start Time Stop Time Status Last Admin Dose Admin Thiamine HCl 100 mg DAILY PO 01/05/25 10:00 Folic Acid 1 mg DAILY PO 01/05/25 10:00 Hydralazine HCl 10 mg Q6HP PRN IV 01/04/25 21:45 Lorazepam 1 mg Q2HP PRN IV 01/04/25 21:45 Diagnostic Test (Pha) 1 strip IQ4HR 01/05/25 00:00 Insulin Human Regular IQ4HR SC 01/05/25 00:00 Dextrose 50 ml UD PRN IV 01/04/25 21:45 Sodium Chloride 1,000 ml @ 60 mls/hr [id number] IV 01/04/25 21:45 Acetaminophen/ Hydrocodone Bitart 1 tab Q4HP PRN PO 01/04/25 21:45 Ondansetron HCl 4 mg Q4HP PRN IV 01/04/25 21:45 Docusate Sodium 100 mg BIDPRN PRN PO 01/04/25 21:45 Multivitamins 1 tab DAILY PO 01/05/25 10:00 Acetaminophen 650 mg Q6HP PRN PO 01/04/25 21:45 Exam Vital Signs Vital Signs Date Time Temp Pulse Resp B/P (MAP) Pulse Ox O2 Delivery O2 Flow Rate FiO2 01/04/25 19:20 98.8 66 20 124/80 (95) 94 98.8 01/04/25 19:15 Room Air* 0 21 General Appearance: Alert, Oriented X3, Cooperative, No acute distress HEENT: Atraumatic, PERRLA, EOMI, Mucous membr. moist/pink Respiratory: Clear to auscultation, Normal air movement Cardiovascular: Regular rate, Normal S1, Normal S2, No murmurs Abdominal: Normal bowel sounds, Soft, No tenderness, No hepatospenomegaly, No masses Extremities: No clubbing, No cyanosis, No edema, Normal pulses, No tenderness/swelling Skin: No rashes, No breakdown, No significant lesion Neuro: Normal speech, Normal tone, Sensation intact, Cranial nerves 3-12 NL, Reflexes 2+, Other (Weakness) Psych/Mental Status: Mental status NL, Mood NL Labs/Xrays Labs Test 01/04/25 18:58 01/04/25 15:10 01/04/25 12:05 Range/Units Urine Color Yellow Yellow Urine Clarity Clear Clear Urine pH 7.0 5.0-9.0 Urine Specific Smyer 1.014 1.001-1.035 Urine Protein Negative Negative Urine Ketones Trace Negative Urine Blood Negative Negative /uL Urine Nitrite Negative Negative Urine Bilirubin Negative Negative Urine Urobilinogen Normal Negative mg/dL Urine Leukocyte Esterase Negative Negative /uL Urine RBC 1 0 - 3 /hpf Urine Microscopic WBC < 1 0-3 /HPF Urine Squamous Epithelial Cells None seen <5 /hpf Urine Bacteria Few H None Seen /hpf Urine Mucus Few None Seen Urine Glucose 4+ H Normal mg/dL Urine Opiates Screen Neg NEGATIVE Urine Fentanyl Screen Neg NEGATIVE Urine Barbiturates Screen Neg NEGATIVE Urine Phencyclidine Screen Neg NEGATIVE Urine Amphetamines Screen Neg NEGATIVE Urine Benzodiazepines Screen Pos NEGATIVE Urine Cocaine Screen Neg NEGATIVE Urine Cannabinoids Screen Pos NEGATIVE Lactic Acid Level 1.2 0.4-2.0 mmol/L Troponin I High Sensitivity 3 L </=54 ng/L White Blood Count 5.4 4.4-10.8 10^3/uL Red Blood Count 5.68 4.5-5.90 10^6/uL Hemoglobin 17.3 13.5-17.5 g/dL Hematocrit 50.7 41.0-53.0 % Mean Corpuscular Volume 89.2 80.0-100.0 fL Mean Corpuscular Hemoglobin 30.4 28.0-32.0 pg Mean Corpuscular Hemoglobin Concent 34.1 32.0-36.0 g/dL Red Cell Distribution Width 16.2 H 11.8-14.3 % Platelet Count 212 140-450 10^3/uL Mean Platelet Volume 9.9 6.9-10.8 fL Neutrophils (%) (Auto) 49.3 37.0-80.0 % Lymphocytes (%) (Auto) 40.1 10.0-50.0 % Monocytes (%) (Auto) 6.7 0.0-12.0 % Eosinophils (%) (Auto) 3.0 0.0-7.0 % Basophils (%) (Auto) 0.9 0.0-2.0 % Neutrophils # (Auto) 2.7 1.6-8.6 10 ^3/uL Lymphocytes # (Auto) 2.2 0.4-5.4 10 ^3/uL Monocytes # (Auto) 0.4 0-1.3 10 ^3/uL Eosinophils # (Auto) 0.2 0-0.8 10 ^3/uL Basophils # (Auto) 0.1 0-0.2 10 ^3/uL Nucleated Red Blood Cells 0.2 % Sodium Level 133 L 136-145 mmol/L Potassium Level 3.9 3.5-5.1 mmol/L Chloride Level 103 98-107 mmol/L Carbon Dioxide Level 21 20-31 mmol/L Anion Gap 9 5-15 Blood Urea Nitrogen 7 L 9-23 mg/dL Creatinine 0.92 0.700-1.30 mg/dL Glomerular Filtration Rate Calc 98 >90 mL/min BUN/Creatinine Ratio 7.6 L 10.0-20.0 Serum Glucose 309 H 74-106 mg/dL Calcium Level 10.0 8.7-10.4 mg/dL Magnesium Level 1.6 1.6-2.6 mg/dL Total Bilirubin 1.4 H 0.2-1.0 mg/dL Aspartate Amino Transferase (AST) 14 13-40 U/L Alanine Aminotransferase (ALT) 20 7-40 U/L Alkaline Phosphatase 131 H 46-116 U/L Total Protein 7.2 5.7-8.2 g/dL Albumin 4.3 3.2-4.8 g/dL Plasma/Serum Blood Alcohol 3.5 <10 mg/dL PATIENT: ARSALAN LAYTON ACCT: [id number] UNIT: [id number] : 1970 LOC: ER ROOM / BED: / AGE / SEX: 54 / M ADM STATUS: REG ER SERVICE 1152 ORDERING PHYSICIAN: TORITO CARBAJAL DO PROCEDURE(s): CXRP - CHEST PORTABLE REASON: ETOH problems ORDER NUMBER(s): [id number], ACCESSION NUMBER(s): [id number] CHEST RADIOGRAPH Indication: ETOH problems Technique: Single frontal view of the chest was obtained COMPARISON: XY CHEST PORTABLE on DOS: 12/20/24, XY CHEST XRAY 1 VIEW on DOS: 12/19/24, XY CHEST PORTABLE on DOS: 10/28/24, XY CHEST PORTABLE on DOS: 10/24/24, XY CHEST PORTABLE on DOS: 10/22/24 FINDINGS: Lines and Tubes: Median sternotomy Lungs: Clear Pleura: No effusion. No pneumothorax. Cardiomediastinal contours: Unremarkable Bones: Unremarkable IMPRESSION: No acute disease. Assessment/Plan Assessment/Plan Alcohol withdrawal Additional Impressions: Noncompliance with medications Homeless Alcohol abuse Generalized weakness Diabetes mellitus with hyperglycemia Plan 1. Admit to telemetry unit 2. Breathing treatment 3. Pain control management 4. Management of fluids and electrolytes 5. Consultation for hospitalist 6. Diagnostic tests chest x-ray 7. DVT prophylaxis-on SCDs 8. Repeat labs CBC, CMP in a.m. 9. Continue with current medical management 10. Treatment plan discussed with patient and RN. Patient verbalized understanding. Plan discussed with: Patient, Other (RN) My Orders Orders - ESTEVAN BROWN DNP Procedure Category Date Status Time Thiamine Tab PHA 01/05/25 In Process 10:00 Folic Acid Tablet PHA 01/05/25 In Process 10:00 Lorazepam 2mg/Ml Inj PHA 01/04/25 In Process (Ativan Inj) 21:45 Glucose Blood PHA 01/05/25 In Process (Accu-Chek Comfort 00:00 Insulin R (Human) PHA 01/05/25 In Process (Insulin R) 00:00 Dextrose 50% Syringe PHA 01/04/25 In Process 21:45 Allergies AYLA 01/04/25 In Process 21:40 Code Status CODE 01/04/25 Transmitted 21:40 Sodium Chloride 0.9% PHA 01/04/25 In Process 21:45 Oxygen Per Hour RT 01/04/25 Transmitted 21:40 Hydrocodone-Acet PHA 01/04/25 In Process 5/325mg Tab ([place] 21:45 Ondansetron Hcl PHA 01/04/25 In Process (Zofran) 21:45 Docusate Sodium PHA 01/04/25 In Process Capsule (Colace 21:45 Multiple Vitamin PHA 01/05/25 In Process Tablet (Mvi Tab) 10:00 Fall Risk Precautions AYLA 01/04/[address] 21:40 Complete Blood Count LAB 01/05/25 Verified 04:00 Comprehensive LAB 01/05/25 Verified Metabolic Panel 04:00 Condition: Serious AYLA 01/04/25 In Process 21:40 Acetaminophen Tablet PHA 01/04/25 In Process (Tylenol Tablet) 21:45 Sequential AYLA 01/04/25 In Process Compression Device Hydralazine Injection PHA 01/04/25 In Process (Apresoline Inject 21:45 Consistent DIET 01/05/25 [facility]mitted [facility]Diabetes Breakfast Problem List: (1) Alcohol withdrawal (2) Alcohol abuse (3) Homeless (4) Noncompliance with medications (5) Diabetes mellitus with hyperglycemia (6) Generalized weakness Date of Service: January 04, 2025 Billing Provider: ESTEVAN BROWN DNP Common Visit Codes: [id number] INP/OBS CARE (HIGH) ESTEVAN BROWN DNP January 04, 2025 22:16
[2025-01-04] MEDS: SODIUM CHLORIDE 0.9% 1,000 ML IV SCH (22:21)
[2025-01-04] MEDS: LORazepam 2MG/ML-1ML VIAL IV PRN (22:23)
[2025-01-05] MEDS: InsuLIN REG 1unit/0.01ml Soln (100units/ml) SC SCH (00:16)
[2025-01-05] MEDS: ACCU-CHEK COMFORT CURVE STRIP VI SCH (00:16)
[2025-01-05 05:18] LABS: Basophils # (auto) 0.1 10 ^3/uL (0-0.2); Basophils % (auto) 1.2 % (0.0-2.0); Eosinophils # (auto) 0.3 10 ^3/uL (0-0.8); Eosinophils % (auto) 4.7 % (0.0-7.0); Hematocrit 48.1 % (41.0-53.0); Hemoglobin 16.3 g/dL (13.5-17.5); Lymphocytes # (auto) 1.9 10 ^3/uL (0.4-5.4); Lymphocytes % (auto) 33.2 % (10.0-50.0); Mean Corpuscular Hemoglobin 30.5 pg (28.0-32.0); Mean Corpuscular Hgb Conc. 33.8 g/dL (32.0-36.0); Mean Corpuscular Volume 90.3 fL (80.0-100.0); Monocytes # (auto) 0.4 10 ^3/uL (0-1.3); Monocytes % (auto) 6.4 % (0.0-12.0); Neutrophils # (auto) 3.2 10 ^3/uL (1.6-8.6); Neutrophils % (auto) 54.5 % (37.0-80.0); Nucleated Red Blood Cells % 0.2 %; Platelet Count (auto) 161 10^3/uL (140-450); Red Blood Cells 5.33 10^6/uL (4.5-5.90); Red Cell Distribution Width 16.6 % (11.8-14.3); White Blood Cell 5.8 10^3/uL (4.4-10.8)
[2025-01-05 05:28] LABS: Alanine Aminotransferase 18 U/L (7-40); Albumin 3.8 g/dL (3.2-4.8); Alkaline Phosphatase 113 U/L (46-116); Anion Gap 8 (5-15); Aspartate Aminotransferase 19 U/L (13-40); BUN/Creatinine Ratio 11.3 (10.0-20.0); Bilirubin, Total 0.7 mg/dL (0.2-1.0); Blood Urea Nitrogen 8 mg/dL (9-23); Calcium 9.5 mg/dL (8.7-10.4); Carbon Dioxide 22 mmol/L (20-31); Chloride 108 mmol/L (98-107); Glucose 203 mg/dL (74-106); Sodium 138 mmol/L (136-145); Total Protein 6.3 g/dL (5.7-8.2)
[2025-01-05 08:45] VITALS: RESP 16; RESP 26; O2SAT 96; O2SAT 97
[2025-01-05] MEDS: THIAMINE HCL 100 MG TAB PO SCH (10:54)
[2025-01-05] MEDS: MULTIPLE VITAMIN TAB PO SCH (10:54)
[2025-01-05] MEDS: FOLIC ACID 1 MG TAB PO SCH (10:55)
--- NOTE | 2025-01-05 15:31 | DVHPN2 ---
Subjective The patient is seen and examined at bedside. Still shaking and confused. Reviewed: Care Plan, H&P, Labs, Medications, Previous Orders, Radiology Changes from previous H/P or p: No Changes Eyes: No Pain, No Vision change, No Conjunctivae inflammation, No Eyelid inflammation, No Other, No Redness ENT: No Ear pain, No Ear discharge, No Nose pain, No Nose discharge, No Nose congestion, No Mouth pain, No Mouth swelling, No Throat pain, No Throat swelling, No Other Cardiovascular: No Chest Pain, No Palpitations, No Orthopnea, No Paroxysmal Noc. Dyspnea, No Edema, No Lt Headedness, No Other Respiratory: No Cough, No Dry, No Shortness of breath, No SOB with excertion, No Wheezing, No Hemoptysis, No Pleuritic Pain, No Sputum, No Other Gastrointestinal: No Nausea, No Vomiting, No Abdominal Pain, No Diarrhea, No Constipation, No Melena, No Hematochezia, No Other Genitourinary: No Dysuria, No Frequency, No Incontinence, No Hematuria, No Retention, No Other Musculoskeletal: No other, No neck pain, No shoulder pain, No arm pain, No back pain, No hand pain, No leg pain, No foot pain Skin: No Rash, No Lesions, No Jaundice, No Bruising, No Other Objective Vitals Vital Signs Date Time Temp Pulse Resp B/P (MAP) Pulse Ox O2 Delivery O2 Flow Rate FiO2 01/05/25 13:00 76 14 117/92 (100) 97 01/05/25 08:45 Room Air* 0 21 01/05/25 08:00 98.1 98.1 Intake/Output Intake and Output 01/05/25 07:00 Intake Total 1480 ml Output Total 500 ml Balance 980 ml Intake IV Total 1480 ml Output Urine Total 500 ml General Appearance: Alert, mild distress, Other (Confused) HEENT: Atraumatic, PERRLA, EOMI Neck: Supple Lungs: Clear to auscultation, Normal air movement Cardiovascular: Regular rate, Normal S1, Normal S2, No murmurs, Gallops, Rubs Neuro: Cranial nerves 3-12 NL Psych/Mental Status: Mental status NL Medications Current Medications Medications Dose Ordered Sig/Jeremiah Route Start Time Stop Time Status Last Admin Dose Admin Thiamine HCl 100 mg DAILY PO 01/05/25 10:00 01/05/25 10:54 100 MG Folic Acid 1 mg DAILY PO 01/05/25 10:00 01/05/25 10:55 1 MG Hydralazine HCl 10 mg Q6HP PRN IV 01/04/25 21:45 Lorazepam 1 mg Q2HP PRN IV 01/04/25 21:45 01/05/25 13:33 1 MG Diagnostic Test (Pha) 1 strip IQ4HR 01/05/25 00:00 01/05/25 12:14 1 STRIP Insulin Human Regular IQ4HR SC 01/05/25 00:00 01/05/25 13:50 3 UNITS Dextrose 50 ml UD PRN IV 01/04/25 21:45 Sodium Chloride 1,000 ml @ 60 mls/hr [id number] IV 01/04/25 21:45 01/04/25 22:21 60 MLS/HR Acetaminophen/ Hydrocodone Bitart 1 tab Q4HP PRN PO 01/04/25 21:45 Ondansetron HCl 4 mg Q4HP PRN IV 01/04/25 21:45 Docusate Sodium 100 mg BIDPRN PRN PO 01/04/25 21:45 Multivitamins 1 tab DAILY PO 01/05/25 10:00 01/05/25 10:54 1 TAB Acetaminophen 650 mg Q6HP PRN PO 01/04/25 21:45 Nitroglycerin 0.4 mg Q5MINP PRN SL 01/04/25 22:15 Morphine Sulfate 2 mg Q30M PRN IV 01/04/25 22:15 Laboratory Results Laboratory Tests 01/05/25 04:55 Chemistry Test 01/05/25 04:55 Albumin 3.8 g/dL (3.2-4.8) Calcium Level 9.5 mg/dL (8.7-10.4) Total Protein 6.3 g/dL (5.7-8.2) LFT Test 01/05/25 04:55 Alanine Aminotransferase (ALT) 18 U/L (7-40) Alkaline Phosphatase 113 U/L (46-116) Aspartate Amino Transferase (AST) 19 U/L (13-40) Total Bilirubin 0.7 mg/dL (0.2-1.0) Urinalysis Test 01/04/25 18:58 Urine Color Yellow (Yellow) Urine Clarity Clear (Clear) Urine pH 7.0 (5.0-9.0) Urine Specific Jermyn 1.014 (1.001-1.035) Urine Protein Negative (Negative) Urine Ketones Trace (Negative) Urine Blood Negative /uL (Negative) Urine Nitrite Negative (Negative) Urine Bilirubin Negative (Negative) Urine Urobilinogen Normal mg/dL (Negative) Urine Leukocyte Esterase Negative /uL (Negative) Urine RBC 1 /hpf (0 - 3) Urine Microscopic WBC < 1 /HPF (0-3) Urine Squamous Epithelial Cells None seen /hpf (<5) Urine Bacteria Few /hpf (None Seen) H Urine Mucus Few (None Seen) Urine Glucose 4+ mg/dL (Normal) H Labs and/or images reviewed: Labs reviewed by me Assessment/Plan Assessment/Plan Alcohol withdrawal Noncompliance with medications Homeless Alcohol abuse Generalized weakness Diabetes mellitus with hyperglycemia Continuing current med and management. Continuing with IV fluid banana bag. Continuing with sliding scale insulin. Continuing with Lantus. Continuing with Ativan p.r.n. for alcohol withdrawal and anxiety This medical document was created using an electronic medical record system with [employer] direct computerized dictation system. Although this document has been carefully reviewed, there may still be some phonetic and typographical errors. These areas are purely typographical due to imperfections of the software programs, and do not reflect any compromise in the patient's medical care. Plan discussed with: Patient Date of Service: January 05, 2025 Billing Provider: MARY NEUMANN MD Common Visit Codes: [id number] INP/OBS CARE(HIGH) MARY NEUMANN MD January 05, 2025 15:31
[2025-01-05 16:00] VITALS: BP 113/76; PULSE 75; RESP 19; TEMP 97.5; O2SAT 99
[2025-01-05] MEDS: HYDROcodone-ACET 5/325MG TAB PO PRN (16:48)
[2025-01-05 20:00] VITALS: PULSE 61; PULSE 71; RESP 16; O2SAT 95
[2025-01-05 21:00] VITALS: BP 112/72; PULSE 61; RESP 16; TEMP 97.9; O2SAT 95
[2025-01-06] VITALS (8 sets, daily range): BP systolic 118–141; BP diastolic 69–93; PULSE 56–76; RESP 15–24; TEMP 97.4–98.2; O2SAT 93–99
[2025-01-06] MEDS: ACETAMINOPHEN 325 MG TAB PO PRN (18:26)
--- NOTE | 2025-01-06 23:01 | DVHPN2 ---
Subjective The patient is seen and examined at bedside. Doing a little bit better today. Reviewed: Care Plan, H&P, Labs, Medications, Previous Orders, Radiology Changes from previous H/P or p: No Changes Eyes: No Pain, No Vision change, No Conjunctivae inflammation, No Eyelid inflammation, No Other, No Redness ENT: No Ear pain, No Ear discharge, No Nose pain, No Nose discharge, No Nose congestion, No Mouth pain, No Mouth swelling, No Throat pain, No Throat swelling, No Other Cardiovascular: No Chest Pain, No Palpitations, No Orthopnea, No Paroxysmal Noc. Dyspnea, No Edema, No Lt Headedness, No Other Respiratory: No Cough, No Dry, No Shortness of breath, No SOB with excertion, No Wheezing, No Hemoptysis, No Pleuritic Pain, No Sputum, No Other Gastrointestinal: No Nausea, No Vomiting, No Abdominal Pain, No Diarrhea, No Constipation, No Melena, No Hematochezia, No Other Genitourinary: No Dysuria, No Frequency, No Incontinence, No Hematuria, No Retention, No Other Musculoskeletal: No other, No neck pain, No shoulder pain, No arm pain, No back pain, No hand pain, No leg pain, No foot pain Skin: No Rash, No Lesions, No Jaundice, No Bruising, No Other Objective Vitals Vital Signs Date Time Temp Pulse Resp B/P (MAP) Pulse Ox O2 Delivery O2 Flow Rate FiO2 01/06/25 21:00 97.7 76 24 118/79 (92) 93 97.7 01/06/25 08:00 Room Air* 0 21 Intake/Output Intake and Output 01/06/25 07:00 Intake Total 690 ml Output Total 150 ml Balance 540 ml Intake Oral 630 ml IV Total 60 ml Output Urine Total 150 ml # Voids 3 General Appearance: Alert, No acute distress HEENT: Atraumatic, PERRLA, EOMI, Mucous membr. moist/pink Neck: Supple Lungs: Clear to auscultation Cardiovascular: Regular rate, Normal S1, Normal S2, No murmurs, Gallops Abdomen: Normal bowel sounds, Soft, No tenderness Neuro: Cranial nerves 3-12 NL Psych/Mental Status: Mental status NL Medications Current Medications Medications Dose Ordered Sig/Jeremiah Route Start Time Stop Time Status Last Admin Dose Admin Thiamine HCl 100 mg DAILY PO 01/05/25 10:00 01/06/25 11:29 100 MG Folic Acid 1 mg DAILY PO 01/05/25 10:00 01/06/25 11:28 1 MG Hydralazine HCl 10 mg Q6HP PRN IV 01/04/25 21:45 Lorazepam 1 mg Q2HP PRN IV 01/04/25 21:45 01/06/25 18:15 1 MG Diagnostic Test (Pha) 1 strip IQ4HR 01/05/25 00:00 01/06/25 20:49 1 STRIP Insulin Human Regular IQ4HR SC 01/05/25 00:00 01/06/25 20:51 6 UNITS Dextrose 50 ml UD PRN IV 01/04/25 21:45 Sodium Chloride 1,000 ml @ 60 mls/hr [id number] IV 01/04/25 21:45 01/06/25 14:07 60 MLS/HR Acetaminophen/ Hydrocodone Bitart 1 tab Q4HP PRN PO 01/04/25 21:45 01/05/25 21:32 1 TAB Ondansetron HCl 4 mg Q4HP PRN IV 01/04/25 21:45 Docusate Sodium 100 mg BIDPRN PRN PO 01/04/25 21:45 Multivitamins 1 tab DAILY PO 01/05/25 10:00 01/06/25 11:28 1 TAB Acetaminophen 650 mg Q6HP PRN PO 01/04/25 21:45 01/06/25 18:26 650 MG Nitroglycerin 0.4 mg Q5MINP PRN SL 01/04/25 22:15 Morphine Sulfate 2 mg Q30M PRN IV 01/04/25 22:15 Lorazepam 2 mg Q2HP PRN PO 01/06/25 12:00 Laboratory Results Laboratory Tests 01/05/25 04:55 Urinalysis Test 01/04/25 18:58 Urine Color Yellow (Yellow) Urine Clarity Clear (Clear) Urine pH 7.0 (5.0-9.0) Urine Specific Parsons 1.014 (1.001-1.035) Urine Protein Negative (Negative) Urine Ketones Trace (Negative) Urine Blood Negative /uL (Negative) Urine Nitrite Negative (Negative) Urine Bilirubin Negative (Negative) Urine Urobilinogen Normal mg/dL (Negative) Urine Leukocyte Esterase Negative /uL (Negative) Urine RBC 1 /hpf (0 - 3) Urine Microscopic WBC < 1 /HPF (0-3) Urine Squamous Epithelial Cells None seen /hpf (<5) Urine Bacteria Few /hpf (None Seen) H Urine Mucus Few (None Seen) Urine Glucose 4+ mg/dL (Normal) H Labs and/or images reviewed: Labs reviewed by me Assessment/Plan Assessment/Plan Alcohol withdrawal Noncompliance with medications Homeless Alcohol abuse Generalized weakness Diabetes mellitus with hyperglycemia Continuing current med and management. Continuing with IV fluid banana bag. Continuing with sliding scale insulin. Continuing with Lantus. Continuing with Ativan p.r.n. for alcohol withdrawal and anxiety Discharge planning This medical document was created using an electronic medical record system with [employer] direct computerized dictation system. Although this document has been carefully reviewed, there may still be some phonetic and typographical errors. These areas are purely typographical due to imperfections of the software programs, and do not reflect any compromise in the patient's medical care. Plan discussed with: Patient My Orders Orders - MARY NEUMANN MD Procedure Category Date Status Time Insert Midline ORDERS 01/06/25 Transmitted 11:46 Lorazepam Tablet PHA 01/06/25 In Process (Ativan Tablet) 12:00 Date of Service: January 06, 2025 Billing Provider: MARY NEUMANN MD Common Visit Codes: [id number] INP/OBS CARE(HIGH) MARY NEUMANN MD January 06, 2025 23:01
[2025-01-07] VITALS (7 sets, daily range): BP systolic 103–139; BP diastolic 69–96; PULSE 60–88; RESP 16–28; TEMP 97.7–98.9; O2SAT 91–98
[2025-01-07] MEDS: LORazepam 0.5 MG TAB PO PRN (00:46)
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
[2025-01-07] MEDS ORDERED: MIRT1TAB38 PO (14:24)
--- NOTE | 2025-01-07 14:31 | DVHDS2 ---
Discharge Summary Date of Admission January 04, 2025 at 22:15 Date of Discharge: January 07, 2025 Admitting Diagnosis Acute alcohol withdrawal Labs/Diagnostic Data: Laboratory Results Test 01/07/25 12:06 01/05/25 04:55 01/04/25 18:58 01/04/25 15:10 POC Glucose 193 mg/dl (70-106) White Blood Count 5.8 10^3/uL (4.4-10.8) Red Blood Count 5.33 10^6/uL (4.5-5.90) Hemoglobin 16.3 g/dL (13.5-17.5) Hematocrit 48.1 % (41.0-53.0) Mean Corpuscular Volume 90.3 fL (80.0-100.0) Mean Corpuscular Hemoglobin 30.5 pg (28.0-32.0) Mean Corpuscular Hemoglobin Concent 33.8 g/dL (32.0-36.0) Red Cell Distribution Width 16.6 % (11.8-14.3) Platelet Count 161 10^3/uL (140-450) Mean Platelet Volume 9.8 fL (6.9-10.8) Neutrophils (%) (Auto) 54.5 % (37.0-80.0) Lymphocytes (%) (Auto) 33.2 % (10.0-50.0) Monocytes (%) (Auto) 6.4 % (0.0-12.0) Eosinophils (%) (Auto) 4.7 % (0.0-7.0) Basophils (%) (Auto) 1.2 % (0.0-2.0) Neutrophils # (Auto) 3.2 10 ^3/uL (1.6-8.6) Lymphocytes # (Auto) 1.9 10 ^3/uL (0.4-5.4) Monocytes # (Auto) 0.4 10 ^3/uL (0-1.3) Eosinophils # (Auto) 0.3 10 ^3/uL (0-0.8) Basophils # (Auto) 0.1 10 ^3/uL (0-0.2) Nucleated Red Blood Cells 0.2 % Sodium Level 138 mmol/L (136-145) Potassium Level 4.0 mmol/L (3.5-5.1) Chloride Level 108 mmol/L (98-107) Carbon Dioxide Level 22 mmol/L (20-31) Anion Gap 8 (5-15) Blood Urea Nitrogen 8 mg/dL (9-23) Creatinine 0.71 mg/dL (0.700-1.30) Glomerular Filtration Rate Calc 108 mL/min (>90) BUN/Creatinine Ratio 11.3 (10.0-20.0) Serum Glucose 203 mg/dL (74-106) Calcium Level 9.5 mg/dL (8.7-10.4) Total Bilirubin 0.7 mg/dL (0.2-1.0) Aspartate Amino Transferase (AST) 19 U/L (13-40) Alanine Aminotransferase (ALT) 18 U/L (7-40) Alkaline Phosphatase 113 U/L (46-116) Total Protein 6.3 g/dL (5.7-8.2) Albumin 3.8 g/dL (3.2-4.8) Urine Color Yellow (Yellow) Urine Clarity Clear (Clear) Urine pH 7.0 (5.0-9.0) Urine Specific [place] 1.014 (1.001-1.035) Urine Protein Negative (Negative) Urine Ketones Trace (Negative) Urine Blood Negative /uL (Negative) Urine Nitrite Negative (Negative) Urine Bilirubin Negative (Negative) Urine Urobilinogen Normal mg/dL (Negative) Urine Leukocyte Esterase Negative /uL (Negative) Urine RBC 1 /hpf (0 - 3) Urine Microscopic WBC < 1 /HPF (0-3) Urine Squamous Epithelial Cells None seen /hpf (<5) Urine Bacteria Few /hpf (None Seen) Urine Mucus Few (None Seen) Urine Glucose 4+ mg/dL (Normal) Urine Opiates Screen Neg (NEGATIVE) Urine Fentanyl Screen Neg (NEGATIVE) Urine Barbiturates Screen Neg (NEGATIVE) Urine Phencyclidine Screen Neg (NEGATIVE) Urine Amphetamines Screen Neg (NEGATIVE) Urine Benzodiazepines Screen Pos (NEGATIVE) Urine Cocaine Screen Neg (NEGATIVE) Urine Cannabinoids Screen Pos (NEGATIVE) Lactic Acid Level 1.2 mmol/L (0.4-2.0) Troponin I High Sensitivity 3 ng/L (</=54) Test 01/04/25 12:05 Magnesium Level 1.6 mg/dL (1.6-2.6) Plasma/Serum Blood Alcohol 3.5 mg/dL (<10) Other Laboratory Tests 01/05/25 04:55 Brief Hx & Hospital Course: History of Present Illness The patient is a 54-year-old male with past medical history of hypertension, Coronary artery disease, hyperlipidemia, and DM who presented to [facility] ED for evaluation of alcohol withdrawal. Patient admits to drinking vodka daily, noted to be in alcohol withdrawal symptoms. Patient also reports that he has not been taking his medications as he has been out of "all of them for some time now". Patient was seen and evaluated in the ED, laboratory data shows WBC 5.4, platelets 212, sodium 133, potassium 3.9, BUN 7, creatinine 0.92, glucose 309, total bilirubin 1.4. Please see medication orders section in the computer. On my assessment, patient denied chest pain, no headache, no dizziness, no diaphoresis, no shortness of breaths, no nausea, no vomiting, no fever, no chills. Patient was admitted for further evaluation and medical management. Course of hospitalization: Patient was treated with IV Ativan, transitioned to Librium. Patient was given adequate IV hydration. Patient had psychiatry consultation given questionable suicidal ideation. At this time, there are no needs for inpatient psychiatry or 5150 hold. Recommendations were to start mirtazapine. Long discussion was made with the patient who is requesting to be discharged home today. Patient will be prescribed mirtazapine 15 mg p.o. Q HS to assist with sleep and appetite. He was instructed to stop drinking alcohol, and using other illicit drugs. He was agreeable with discharge plan. All questions answered. Physical examination General: Alert and Oriented x3. No acute distress. Well-nourished. Obese Eyes: EOMI. Anicteric. HENT: Moist mucous membranes. Lungs: Clear to auscultation bilaterally. No accessory muscle use. Cardiovascular: Regular rate and rhythm. No murmur. No JVD. Abdomen: Soft, non-tender and non-distended. No palpable masses. Extremities: No edema. Non-tender. Skin: No rashes or lesions. Warm. Neurologic: No focal neurological deficits. CN II-XII grossly intact, but not individually tested. Psychiatric: Cooperative. Appropriate mood and affect. Total time spent with patient discussing and formulating plan of care: 35 minutes. This medical document was created using an electronic medical record system with [employer] dictation system. Although this document has been carefully reviewed, there may still be some phonetic and typographical errors. These areas are purely typographical due to imperfections of the software programs, and do not reflect any compromise in the patient's medical care. Consults/Reason for consult Psychiatry: Depression Condition at Discharge: Poor Final Diagnosis/Problems List Acute alcohol withdrawal Alcohol withdrawal Hyperglycemic hyperosmolar state Metabolic acidosis with elevated anion gap, likely related to ethanol intoxication Lactic acidosis Ethanol abuse Coronary artery disease status post CABG Non adherence Pseudohyponatremia (secondary to hyperglycemia) Acute on chronic systolic/diastolic CHF Acute hypoxic respiratory failure Mixed dyslipidemia Schizophrenia/Bipolar disorder Hypertension Obesity Discharge Disposition: Home Discharge Instruct/Medications Diet: Consistent carbohydrate Follow Up/Referral: PCP in 1-2 weeks Medications: Mirtazapine 15 mg p.o. q.h.s. Continue all home medications 36 Discharge Statement: "Patient was advised to return to the ER or call 911 if any headaches, dizziness, shortness of breath, chest pain, abdominal pain, bleeding, fevers, or worsening of medical condition. Patient was counseled about treatment plan, medications, possible side effects, patient�verbalized understanding. All questions were answered to the best of my ability. This discharge took greater then 30 minutes in planning, reviewing documentation, counseling the patient, and discussing with other team members." ASSESSMENT ASSESSMENT Assessment Date of Service: January 07, 2025 Billing Provider: GALLITO GIBSON NP Common Visit Codes: 91505-NHJ/OBS DISCH DAY >30min GALLITO GIBSON NP January 07, 2025 14:31
[2025-01-07] MEDS: LORazepam 2MG/ML-1ML VIAL IV PRN (16:37)
[2025-01-07] MEDS: MIRTAZAPINE 30 MG TAB PO SCH (21:43)
[2025-01-08 00:58] VITALS: BP 100/60; PULSE 65; RESP 20; TEMP 98; O2SAT 91
[2025-01-08 05:00] VITALS: BP 107/59; PULSE 53; RESP 12; TEMP 97.5; O2SAT 97
[2025-01-08 08:00] VITALS: PULSE 66
[2025-01-08 08:29] VITALS: RESP 20
[2025-01-08 10:12] VITALS: TEMP 36.4
== END 2025-01-08 12:27 | disposition home or self-care (01) | DRG 816 ==
LOC: EDUNIT# 11:44 → EDBD 11:44 → ER 11:44 → OVERFLOW 22:15 → TELE-WESTW 01-05 15:15
PROVIDERS: ADMIT Nurse Practitioner Acute Care; ATTEND Nurse Practitioner Acute Care
DX: T51.0X1A Toxic effect of ethanol, accidental (unintentional), initial encounter (principal); J96.01 Acute respiratory failure with hypoxia; E11.00 Type 2 diabetes mellitus with hyperosmolarity without nonketotic hyperglycemic-hyperosmolar coma (NKHHC); I50.43 Acute on chronic combined systolic (congestive) and diastolic (congestive) heart failure; G93.41 Metabolic encephalopathy; I11.0 Hypertensive heart disease with heart failure; E87.20 Acidosis, unspecified; I25.10 Atherosclerotic heart disease of native coronary artery without angina pectoris; F10.139 Alcohol abuse with withdrawal, unspecified; E78.5 Hyperlipidemia, unspecified; R45.851 Suicidal ideations; E88.89 Other specified metabolic disorders; F10.120 Alcohol abuse with intoxication, uncomplicated; E66.9 Obesity, unspecified; F31.9 Bipolar disorder, unspecified; F41.9 Anxiety disorder, unspecified; Z95.1 Presence of aortocoronary bypass graft; Z91.148 Patient's other noncompliance with medication regimen for other reason; Z63.4 Disappearance and death of family member; Z59.00 Homelessness unspecified; Z55.5 Less than a high school diploma; Z68.35 Body mass index [BMI] 35.0-35.9, adult
CPT/HCPCS: 36415; 71045; 80053; 80307; 80320; 81001; 82962; 83605; 83735; 84484; 85025; 93005; 96361; 96374; G0378; J1815

== ENCOUNTER 2025-01-11 09:01 | Inpatient (IN) | payer MEDICAID ==
[~2025-01-11] VITALS: Ht 177.8 cm; Wt 103.7 kg
[~2025-01-11 09:01] MED LIST changes: +MIRT1TAB38 PO
[2025-01-11] MEDS: SODIUM CHLORIDE 0.9% 1,000 ML IV ONE ×2 (09:15→09:46)
[2025-01-11 09:35] VITALS: PULSE 73; RESP 18; O2SAT 97
[2025-01-11 09:40] LABS: Basophils # (auto) 0 10 ^3/uL (0-0.2); Basophils % (auto) 0.2 % (0.0-2.0); Eosinophils # (auto) 0.5 10 ^3/uL (0-0.8); Eosinophils % (auto) 7.2 % (0.0-7.0); Hematocrit 49.7 % (41.0-53.0); Hemoglobin 16.8 g/dL (13.5-17.5); Lymphocytes # (auto) 2.1 10 ^3/uL (0.4-5.4); Lymphocytes % (auto) 33.5 % (10.0-50.0); Mean Corpuscular Hemoglobin 30.5 pg (28.0-32.0); Mean Corpuscular Hgb Conc. 33.9 g/dL (32.0-36.0); Mean Corpuscular Volume 89.9 fL (80.0-100.0); Monocytes # (auto) 0.5 10 ^3/uL (0-1.3); Monocytes % (auto) 8.2 % (0.0-12.0); Neutrophils # (auto) 3.2 10 ^3/uL (1.6-8.6); Neutrophils % (auto) 50.9 % (37.0-80.0); Nucleated Red Blood Cells % 0.2 %; Platelet Count (auto) 209 10^3/uL (140-450); Red Blood Cells 5.53 10^6/uL (4.5-5.90); Red Cell Distribution Width 16.8 % (11.8-14.3); White Blood Cell 6.3 10^3/uL (4.4-10.8)
--- NOTE | 2025-01-11 09:42 | ED.PDOC ---
Psychiatric HPI Comments 54 y/o MADELSO presents to the ED for CC of withdrawals. EMS reports, patient is coming from home where he complains of generalized weakness x4days following, consuming 2/5s of Vodka daily. Patient relays, that he has been withdrawing from Alcohol for the past x2days. Patient comments, that he is not suicidal but states "he loss the will to live". No other symptoms or modifying factors present at this time. Chief Complaint: Withdrawal Time Seen by MD: 09:40 Primary Care Provider: UNKNOWN Reviewed Notes: Nurses Notes, Medications, Allergies Information Source: Patient Mode of Arrival: EMS Severity: Able to Care for Self Severity of Pain: None Severity of Mental Status: Moderate Severity of Symptoms: Moderate Timing: Days Duration: Since onset Prehospital treatment: None Presents with: Depression, Bizarre Behavior Ingestion: ETOH Circumstance: Withdrawal Symptoms Current substance abuse: ETOH Stressors: None History of: None Quality: None Associated signs and symptoms: Depression Past Medical History PAST MEDICAL HISTORY: CAD, DM, High Lipids, HTN Surgical History: CABG Family History Family History: Reviewed,noncontributory to illness Social History Smoker: Non-Smoker Alcohol: Heavy Drugs: Denies Drug Use Lives In: Other Constitutional: denies: chills, diaphoresis, fatigue, fever, malaise, sweats, weakness, others EENTM: denies: blurred vision, double vision, ear bleeding, ear discharge, ear drainage, ear pain, ear ringing, eye pain, eye redness, hearing loss, mouth pain, mouth swelling, nasal discharge, nose bleeding, nose congestion, nose pain, photophobia, tearing, throat pain, throat swelling, voice changes, others Respiratory: denies: cough, hemoptysis, orthopnea, SOB at rest, shortness of breath, SOB with excertion, stridor, wheezing, others Cardiovascular: denies: chest pain, dizzy spells, diaphoresis, Dyspnea on exertion, edema, irregular heart beat, left arm pain, lightheadedness, palpitations, PND, syncope, others Gastrointestinal: denies: abdomen distended, abdominal pain, blood streaked bowels, constipated, diarrhea, dysphagia, difficulty swallowing, hematemesis, melena, nausea, poor appetite, poor fluid intake, rectal bleeding, rectal pain, vomiting, others Genitourinary: denies: burning, dysuria, flank pain, frequency, hematuria, incontinence, penile discharge, penile sore, pain, testicle pain, testicle swelling, urgency, others Neurological: denies: dizziness, fainting, headache, left sided numbness, left sided weakness, numbness, paresthesia, pre-existing deficit, right sided numbness, right sided weakness, seizure, speech problems, tingling, tremors, weakness, others Musculoskeletal: denies: back pain, gout, joint pain, joint swelling, muscle pain, muscle stiffness, neck pain, others Integumetry: denies: bruises, change in color, change in hair/nails, dryness, laceration, lesions, lumps, rash, wounds, others Allergic/Immunocompromised: denies: Difficulty Healing, Frequent Infections, Hives, Itching, others Hematologic/Lymphatic: denies: anemia, blood clots, easy bleeding, easy bruising, swollen glands, others Endocrine: denies: excessive hunger, excessive sweating, excessive thirst, excessive urination, flushing, intolerance to cold, intolerance to heat, unexplained weight gain, unexplained weight loss, others Psychiatric: reports: depression; denies: anxiety, bipolar disorder, hopeless, panic disorder, schizophrenia, sleepless, suicidal, others All Other Systems: Reviewed and Negative Physical Exam General Appearance: Moderate Distress HEENT: Normal ENT Inspection, Pharynx Normal, TMs Normal Neck: Full Range of Motion, Non-Tender, Normal, Normal Inspection Respiratory: Chest Non-Tender, Lungs Clear, No Accessory Muscle Use, No Respiratory Distress, Normal Breath Sounds Cardiovascular: No Edema, No JVD, No Murmur, No Gallop, Normal Peripheral Pulses, Regular Rate/Rhythm Breast Exam: Deferred Gastrointestinal: No Organomegaly, Non Tender, No Pulsatile Mass, Normal Bowel Sounds, Soft Genitalia: Deferred Pelvic: Deferred Rectal: Deferred Extremities: No calf tenderness, Normal capillary refill, Normal inspection, Normal range of motion, Non-tender, No pedal edema Musculoskeletal : Apperance: Normal Neurologic: Alert, hot cell technician II-XII nml as Tested, No Motor Deficits, Normal Affect, Normal Mood, No Sensory Deficits Cerebellar Function: NOT DONE Reflexes: NOT DONE Skin: Dry, Normal Color, Warm Peripheral Pulses: 3+ Radial (R), 3+ Radial (L) Lymphatic: No Adenopathy Was a procedure done? Was a procedure done?: No Psych Differential Dx Psych. Differential Dx: Depression, Hopeless X-Ray, Labs, Meds, VS Vital Signs Date Time Temp Pulse Resp B/P (MAP) Pulse Ox O2 Delivery O2 Flow Rate FiO2 01/11/25 09:35 98.2 73 18 153/90 (111) 97 98.2 01/11/25 09:35 73 18 97 Room Air* 0 21 01/11/25 09:19 98.6 75 16 145/85 (105) 98 98.6 01/11/25 09:09 72 Lab Test 01/11/25 09:27 Range/Units White Blood Count 6.3 4.4-10.8 10^3/uL Red Blood Count 5.53 4.5-5.90 10^6/uL Hemoglobin 16.8 13.5-17.5 g/dL Hematocrit 49.7 41.0-53.0 % Mean Corpuscular Volume 89.9 80.0-100.0 fL Mean Corpuscular Hemoglobin 30.5 28.0-32.0 pg Mean Corpuscular Hemoglobin Concent 33.9 32.0-36.0 g/dL Red Cell Distribution Width 16.8 H 11.8-14.3 % Platelet Count 209 140-450 10^3/uL Mean Platelet Volume 10.3 6.9-10.8 fL Neutrophils (%) (Auto) 50.9 37.0-80.0 % Lymphocytes (%) (Auto) 33.5 10.0-50.0 % Monocytes (%) (Auto) 8.2 0.0-12.0 % Eosinophils (%) (Auto) 7.2 H 0.0-7.0 % Basophils (%) (Auto) 0.2 0.0-2.0 % Neutrophils # (Auto) 3.2 1.6-8.6 10 ^3/uL Lymphocytes # (Auto) 2.1 0.4-5.4 10 ^3/uL Monocytes # (Auto) 0.5 0-1.3 10 ^3/uL Eosinophils # (Auto) 0.5 0-0.8 10 ^3/uL Basophils # (Auto) 0 0-0.2 10 ^3/uL Nucleated Red Blood Cells 0.2 % Sodium Level 137 136-145 mmol/L Potassium Level 3.9 3.5-5.1 mmol/L Chloride Level 111 H 98-107 mmol/L Carbon Dioxide Level 18 L 20-31 mmol/L Anion Gap 8 5-15 Blood Urea Nitrogen 8 L 9-23 mg/dL Creatinine 0.78 0.700-1.30 mg/dL Glomerular Filtration Rate Calc 105 >90 mL/min BUN/Creatinine Ratio 10.3 10.0-20.0 Serum Glucose 231 H 74-106 mg/dL Calcium Level 10.0 8.7-10.4 mg/dL Magnesium Level 1.6 1.6-2.6 mg/dL Plasma/Serum Blood Alcohol < 3.0 <10 mg/dL Current Medications Medications (Trade) Dose Ordered Sig/Jeremiah Route Start Time Stop Time Status Last Admin Thiamine HCl 100 mg ONCE ONCE IV 01/11/25 09:15 01/11/25 09:17 DC 01/11/25 09:46 Sodium Chloride 1,000 ml @ 1,000 mls/hr Q1H ONCE IV 01/11/25 09:15 01/11/25 10:14 DC 01/11/25 09:46 Lorazepam (Ativan Inj) 1 mg ONCE ONCE IV 01/11/25 09:15 01/11/25 09:17 DC 01/11/25 09:46 Patient alert pain History of alcohol use. Last drink was few days ago. Establish intravenous access. Was given fluids. Was given thiamine. Was given Ativan. EKG reviewed does not show any acute changes. History of coronary artery disease. He will need psychiatric evaluation after medical clearance. Explained to the patient. Continue monitoring. Time of 1ST Reevaluation: 10:20 Reevaluation 1ST: Unchanged Patient Education/Counseling: Diagnosis, Treatment Family Education/Counseling: No Family Present Departure 1 Departure Time of Disposition: 14:13 Impression: Primary Impression: Toxic encephalopathy Qualified Codes: G92.9 - Unspecified toxic encephalopathy Additional Impressions: Alcohol withdrawal Qualified Codes: F10.939 - Alcohol use, unspecified with withdrawal, unspecified Uncontrolled diabetes mellitus Qualified Codes: E13.65 - Other specified diabetes mellitus with hyperglycemia Disposition: ADMITTED INPATIENT Admit to: Med Surg Condition: Guarded Critical Care Note Critical Care Time?: No Stability Stability form required: No Heart Score Heart Score: Heart Score Response (Comments) Value History Slightly Suspicious 0 EKG Normal 0 Age 45-64 1 Risk Factors 1 or 2 risk factors 1 Troponin N/A 0 Total 2 I personally scribed for HUNG MORGAN MD ([email or web address]) on 01/11/25 at 09:42. Electronically submitted by Xochitl Stephenson ([email or web address]). HUNG MORGAN MD January 11, 2025 09:42
[2025-01-11] MEDS: LORazepam 2MG/ML-1ML VIAL IV ONE ×2 (09:46→17:22)
[2025-01-11] MEDS: THIAMINE 100mg/ml INJ (200mg/2ml VIAL) IV ONE (09:46)
[2025-01-11 09:49] LABS: Potassium 3.9 mmol/L (3.5-5.1); Sodium 137 mmol/L (136-145)
[2025-01-11 09:50] LABS: Anion Gap 8 (5-15)
[2025-01-11 09:56] LABS: BUN/Creatinine Ratio 10.3 (10.0-20.0)
[2025-01-11 09:57] LABS: Blood Urea Nitrogen 8 mg/dL (9-23); Carbon Dioxide 18 mmol/L (20-31); Chloride 111 mmol/L (98-107); Glucose 231 mg/dL (74-106)
[2025-01-11] MEDS ORDERED: DEXTROSE (50%) 50ML SYRG IV PRN (11:00)
[2025-01-11] MEDS ORDERED: ONDANSETRON HCL 4 MG/2 ML VIAL IV PRN (11:00)
[2025-01-11 11:11] LABS: Magnesium 1.6 mg/dL (1.6-2.6)
--- NOTE | 2025-01-11 11:11 | DVHHP2 ---
History of Present Illness Reason for Visit: ETOH withdrawal History of Present Illness Stefano Malik is a 54-year-old male with past medical history of CAD status post CABG, hypertension, hyperlipidemia, diabetes type 2, and left eye blindness who presents to the ED with generalized weakness x4 days. Patient reports that he i s homeless and he drinks about 2 bottles of vodka per day as well as smokes 1- 1/2 packs of cigarettes per day, and uses marijuana. Patient states that he is homeless and unable to take medications as he does not have any. Patient reports that he hears voices and it tells him random things. He reports that those voices do not tell him to hurt himself or hurt others. Patient denie s any harm of hurting himself or has any plans on hurting himself. Patient denies any chest pain, shortness of breath, fever, chills, lightheadedness, dizziness, abdominal pain, nausea, vomiting, or diarrhea. Cardiovascular: CAD, HTN, hyperipidemia Endocrine: Diabetes Past Medical History Left eye blindness Past Surgical History: CABG Family History: None Smoke: 2 packs per day ALCOHOL: heavy Drugs: Marijuana Lives: Homeless Domestic Violence: Neg Review of Systems Constitutional: Yes: Weakness Allergies: Coded Allergies: NO KNOWN ALLERGIES (Unverified , 09/10/24) Medications Current Medications Medications Dose Ordered Sig/Jeremiah Route Start Time Stop Time Status Last Admin Dose Admin Ondansetron HCl 4 mg Q4HP PRN IV 01/11/25 11:00 UNV Enoxaparin Sodium 40 mg DAILY SC 01/12/25 10:00 UNV Acetaminophen 650 mg Q6HP PRN PO 01/11/25 11:00 UNV Exam Vital Signs Vital Signs Date Time Temp Pulse Resp B/P (MAP) Pulse Ox O2 Delivery O2 Flow Rate FiO2 01/11/25 09:35 98.2 73 18 153/90 (111) 97 98.2 01/11/25 09:35 Room Air* 0 21 General Appearance: Alert, Oriented X3, Cooperative, No acute distress, Other (Disheveled and unkempt) HEENT: Atraumatic, PERRLA, EOMI Respiratory: Normal air movement Cardiovascular: Normal S1, Normal S2 Neuro: Normal speech, Normal tone, Sensation intact Psych/Mental Status: Mental status NL Labs/Xrays Labs Test 01/11/25 09:27 Range/Units White Blood Count 6.3 4.4-10.8 10^3/uL Red Blood Count 5.53 4.5-5.90 10^6/uL Hemoglobin 16.8 13.5-17.5 g/dL Hematocrit 49.7 41.0-53.0 % Mean Corpuscular Volume 89.9 80.0-100.0 fL Mean Corpuscular Hemoglobin 30.5 28.0-32.0 pg Mean Corpuscular Hemoglobin Concent 33.9 32.0-36.0 g/dL Red Cell Distribution Width 16.8 H 11.8-14.3 % Platelet Count 209 140-450 10^3/uL Mean Platelet Volume 10.3 6.9-10.8 fL Neutrophils (%) (Auto) 50.9 37.0-80.0 % Lymphocytes (%) (Auto) 33.5 10.0-50.0 % Monocytes (%) (Auto) 8.2 0.0-12.0 % Eosinophils (%) (Auto) 7.2 H 0.0-7.0 % Basophils (%) (Auto) 0.2 0.0-2.0 % Neutrophils # (Auto) 3.2 1.6-8.6 10 ^3/uL Lymphocytes # (Auto) 2.1 0.4-5.4 10 ^3/uL Monocytes # (Auto) 0.5 0-1.3 10 ^3/uL Eosinophils # (Auto) 0.5 0-0.8 10 ^3/uL Basophils # (Auto) 0 0-0.2 10 ^3/uL Nucleated Red Blood Cells 0.2 % Sodium Level 137 136-145 mmol/L Potassium Level 3.9 3.5-5.1 mmol/L Chloride Level 111 H 98-107 mmol/L Carbon Dioxide Level 18 L 20-31 mmol/L Anion Gap 8 5-15 Blood Urea Nitrogen 8 L 9-23 mg/dL Creatinine 0.78 0.700-1.30 mg/dL Glomerular Filtration Rate Calc 105 >90 mL/min BUN/Creatinine Ratio 10.3 10.0-20.0 Serum Glucose 231 H 74-106 mg/dL Calcium Level 10.0 8.7-10.4 mg/dL Assessment/Plan Assessment/Plan Assessment Generalized weakness likely due to ETOH withdrawal Tobacco use Substance abuse Medication noncompliance History of CAD History of hypertension History of hyperlipidemia History of diabetes type 2 History of left eye blindness History of CABG Plan Admit to tele Antiemetics Pain management Benzo given in ED NS 2L given ED CIWA protocol Thiamine Folic acid Multivitamins EKG Hemoglobin A1c ISS and Accu-Cheks Last echo on 09/11/2024 EF 45% Chest x-ray CT head Diet Home medications reconciled DVT prophylaxis-Lovenox PUD prophylaxis-not indicated no history of GERD or GI bleed Discussed plan of care with patient and nurse Counseled patient on cessation of alcohol use, tobacco use, and substance abuse Counseled patient on the need of taking medications as prescribed 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 Plan discussed with: Patient My Orders Orders - DARREL BUSH Procedure Category Date Status Time Admit ADMIT 01/11/25 Transmitted 10:51 Allergies AYLA 01/11/25 In Process 10:51 Code Status CODE 01/11/25 Transmitted 10:51 Ondansetron Hcl PHA 01/11/25 Logged (Zofran) 11:00 Enoxaparin Sodium PHA 01/12/25 Logged (Lovenox) 10:00 Complete Blood Count LAB 01/12/25 Verified 04:00 Comprehensive LAB 01/12/25 Verified Metabolic Panel 04:00 Cardiac DIET 01/11/25 Transmitted Diet-2gna,Lofat,Lochol Lunch Acetaminophen Tablet PHA 01/11/25 Logged (Tylenol Tablet) 11:00 Blood Alcohol LAB 01/11/25 Logged 10:51 Drug Screen LAB 01/11/25 Logged 10:51 Urinalysis LAB 01/11/25 Logged 10:51 [employer] Sales Representative ED NURSING 01/11/25 Transmitted 10:51 Magnesium LAB 01/11/25 Logged 10:51 Thiamine 100mg Po PHA 01/12/25 Transmitted Daily 10:00 Folic Acid 1mg Po PHA 01/12/25 Transmitted Daily 10:00 Mvi Tablet Po Daily PHA 01/12/25 Transmitted 10:00 Ativan 2mg Po Q2hr Prn PHA 01/11/25 Transmitted 11:00 Etoh Withdrawal AYLA 01/11/25 In Process Assessment 10:51 Etoh Withdrawal AYLA 01/11/25 In Process Assessment 10:51 Glucose Blood PHA 01/11/25 Transmitted (Accu-Chek Comfort 11:30 Mild Sliding Scale PHA 01/11/25 Transmitted 11:30 Dextrose 50% Syringe PHA 01/11/25 Transmitted 11:00 Atorvastatin (Lipitor) PHA 01/11/25 Verified 22:00 Lisinopril Tablet PHA 01/11/25 Verified (Zestril Tablet) 22:00 Date of Service: January 11, 2025 Billing Provider: DARREL BUSH Common Visit Codes: [id number] INP/OBS CARE (HIGH) DARREL BUSH January 11, 2025 11:11
[2025-01-11 11:28] LABS: Blood Alcohol < 3.0 mg/dL (<10)
[2025-01-11] MEDS: InsuLIN REG 1unit/0.01ml Soln (100units/ml) SC SCH (11:30)
[2025-01-11 12:14] VITALS: BP 148/95; PULSE 68; TEMP 98; O2SAT 92
[2025-01-11] MEDS: LORazepam 0.5 MG TAB PO PRN (12:35)
--- NOTE | 2025-01-11 12:51 | DVH ---
CT HEAD WITHOUT CONTRAST Indication: weakness EXAM DATE: 01/11/2025 11:21 AM COMPARISON: CT HEAD WITHOUT CONTRAST on DOS: 12/19/24 TECHNIQUE: CT of the head without intravenous contrast. RADIATION DOSE: CTDIvol: 54.05 mGy, DLP: 866.58 mGy*cm FINDINGS: There is no intracranial hemorrhage. There is no extra-axial fluid, mass, mass effect or midline shif t. The ventricles are midline and normal in size. Basilar cisterns are patent. Mild volume loss. Gra y-white differentiation is maintained. The mastoids demonstrate tiny bilateral effusions. Mucosal thickening of the ethmoids, sphenoids, deepa ateral maxillary sinuses.. Imaged portion of the orbits are unremarkable. IMPRESSION: 1. No intracranial hemorrhage or mass effect. 2. Paranasal sinus disease. Tiny bilateral mastoid effusions.
--- NOTE | 2025-01-11 13:39 | DVH ---
CHEST RADIOGRAPH Indication: r/o pna Technique: Single frontal view of the chest was obtained Comparison: XY CHEST PORTABLE on DOS: 01/04/25, XY CHEST PORTABLE on DOS: 12/20/24, XY CHEST XRAY 1 VIEW on DOS: 12/19/24, XY CHEST PORTABLE on DOS: 10/28/24, XY CHEST PORTABLE on DOS: 10/24/24 FINDINGS: Lines and Tubes: None Lungs: No focal consolidation. Pleura: No effusion. No pneumothorax. Cardiomediastinal contours: Unremarkable Bones: No acute osseous abnormality. IMPRESSION: Mild pulmonary edema
[2025-01-11] MEDS: ACCU-CHEK COMFORT CURVE STRIP VI SCH (13:57)
[2025-01-11] MEDS: PREGABALIN CAPSULE 75 MG CAP PO SCH (14:56)
[2025-01-11 16:38] VITALS: BP 145/86; PULSE 72; RESP 18; TEMP 97.6; O2SAT 98
[2025-01-11] MEDS: MIRTAZAPINE 30 MG TAB PO SCH (17:28)
[2025-01-11 20:00] VITALS: PULSE 74; RESP 17; O2SAT 0
[2025-01-11 21:00] VITALS: BP 119/80; PULSE 59; RESP 20; TEMP 96.8; O2SAT 90
[2025-01-11] MEDS: LISINOPRIL 20 MG TAB PO SCH (21:44)
[2025-01-11] MEDS: QUEtiapine FUMARATE 25 MG TAB PO SCH (21:44)
[2025-01-11] MEDS: ATORVASTATIN 20 MG TAB PO SCH (21:44)
[2025-01-12 01:00] VITALS: BP 110/71; PULSE 57; RESP 18; TEMP 98.1; O2SAT 92
[2025-01-12 05:00] VITALS: BP 98/67; PULSE 73; RESP 20; TEMP 98; O2SAT 94
[2025-01-12 06:37] LABS: Alanine Aminotransferase 17 U/L (7-40); Alkaline Phosphatase 105 U/L (46-116); Anion Gap 8 (5-15); Aspartate Aminotransferase 22 U/L (13-40); BUN/Creatinine Ratio 8.2 (10.0-20.0); Bilirubin, Total 0.7 mg/dL (0.2-1.0); Blood Urea Nitrogen 6 mg/dL (9-23); Calcium 9.8 mg/dL (8.7-10.4); Carbon Dioxide 24 mmol/L (20-31); Chloride 110 mmol/L (98-107); Glucose 138 mg/dL (74-106); Potassium 3.7 mmol/L (3.5-5.1); Sodium 142 mmol/L (136-145); Total Protein 6.7 g/dL (5.7-8.2)
--- NOTE | 2025-01-12 07:12 | ECG ---
[facility] Test Date: 2025-01-11 Test Time: 09:09:27 Pat Name: ARSALAN LAYTON Department: ED Room: 0205 Gender: M Contact Officer: THAD : 1970 Requested By: HUNG MORGAN Order Number: [id number] Reading MD: Felipe Huffman Measurements Intervals [place] Rate: 72 P: 18 AK: 131 QRS: 74 QRSD: 107 T: -26 QT: 399 QTc: 437 Interpretive Statements Sinus rhythm Inferior infarct, age indeterminate Electronically Signed On 01-16-2025 12:07:46 PDT by Felipe Huffman Please click the below link to view image of tracing.
[2025-01-12 08:00] VITALS: PULSE 70; PULSE 91; RESP 16; O2SAT 95
[2025-01-12 08:01] LABS: Basophils # (auto) 0.1 10 ^3/uL (0-0.2); Basophils % (auto) 0.9 % (0.0-2.0); Eosinophils # (auto) 0.6 10 ^3/uL (0-0.8); Eosinophils % (auto) 10.9 % (0.0-7.0); Hematocrit 48.2 % (41.0-53.0); Hemoglobin 16.6 g/dL (13.5-17.5); Lymphocytes # (auto) 2.6 10 ^3/uL (0.4-5.4); Lymphocytes % (auto) 45.7 % (10.0-50.0); Mean Corpuscular Hgb Conc. 34.5 g/dL (32.0-36.0); Mean Corpuscular Volume 90.1 fL (80.0-100.0); Monocytes # (auto) 0.5 10 ^3/uL (0-1.3); Monocytes % (auto) 9.4 % (0.0-12.0); Neutrophils # (auto) 1.9 10 ^3/uL (1.6-8.6); Neutrophils % (auto) 33.1 % (37.0-80.0); Nucleated Red Blood Cells % 0.3 %; Platelet Count (auto) 196 10^3/uL (140-450); Red Blood Cells 5.34 10^6/uL (4.5-5.90); Red Cell Distribution Width 16.4 % (11.8-14.3); White Blood Cell 5.8 10^3/uL (4.4-10.8)
[2025-01-12 09:00] VITALS: BP 99/67; PULSE 71; RESP 17; TEMP 98.7; O2SAT 94
[2025-01-12] MEDS: ENOXAPARIN SOD 40 MG/0.4 ML SYRINGE SC SCH (10:00)
[2025-01-12] MEDS: FOLIC ACID 1 MG TAB PO SCH (10:11)
[2025-01-12 10:12] LABS: Urine Bacteria None Seen /hpf (None Seen)
[2025-01-12] MEDS: SERTRALINE HCL 50 MG TAB PO SCH (10:12)
[2025-01-12] MEDS: THIAMINE HCL 100 MG TAB PO SCH (10:12)
[2025-01-12] MEDS: MULTIPLE VITAMIN TAB PO SCH (10:12)
[2025-01-12 10:19] LABS: Urine Blood Negative /uL (Negative); Urine Clarity Clear (Clear); Urine Color Yellow (Yellow); Urine Mucus FEW (None Seen); Urine Protein, UAD Negative (Negative); Urine Specific Gravity 1.014 (1.001-1.035); Urine Squamous Epithelial Cell FEW /hpf (<5); Urine Urobilinogen Normal (Negative); Urine WBC 1 /HPF (0-3); Urine pH 5.5 (5.0-9.0)
[2025-01-12 10:30] LABS: Benzodiazephine Screen, Urine Pos (NEGATIVE)
[2025-01-12 10:44] LABS: Amphetamine Screen, Urine Neg (NEGATIVE); Barbiturate Scree,Urine Neg (NEGATIVE); Cannabinoid Screen, Urine Pos (NEGATIVE); Cocaine Screen, Urine Neg (NEGATIVE); Opiate Scree,Urine Neg (NEGATIVE); Phencyclidine Screen, Urine Neg (NEGATIVE)
[2025-01-12] MEDS: ACETAMINOPHEN 325 MG TAB PO PRN (15:31)
[2025-01-12] MEDS: chlordiazePOXIDE HCL 25 MG CAP PO SCH (18:09)
[2025-01-12] MEDS: LORazepam 2MG/ML-1ML VIAL IV PRN (18:23)
[2025-01-12] MEDS: FOLIC ACID 1 MG, MAGNESIUM SULF SDV 50% 8 MEQ, MULTIPLE VITAMIN 10 ML, THIAMINE INJ 100... INJ SCH (18:34)
[2025-01-12] MEDS: HYDROcodone-ACET 5/325MG TAB PO PRN (18:48)
[2025-01-12 20:00] VITALS: RESP 16; O2SAT 0
[2025-01-12 21:00] VITALS: BP 98/67; PULSE 66; RESP 17; TEMP 97.5; O2SAT 95
[2025-01-12] MEDS: GABAPENTIN 300 MG CAP PO SCH (21:34)
--- NOTE | 2025-01-12 23:06 | DVHPN2 ---
Subjective The patient is seen and examined at bedside. The patient is very shaky and complain of pain Reviewed: Care Plan, H&P, Labs, Medications, Previous Orders, Radiology Changes from previous H/P or p: No Changes Objective Vitals Vital Signs Date Time Temp Pulse Resp B/P (MAP) Pulse Ox O2 Delivery O2 Flow Rate FiO2 01/12/25 21:36 98/67 01/12/25 21:00 97.5 66 17 95 97.5 01/12/25 20:00 Room Air* 0 21 Intake/Output Intake and Output 01/12/25 07:00 Intake Total 100 ml Balance 100 ml Intake Oral 100 ml # Voids 2 General Appearance: Alert, mild distress HEENT: Atraumatic, PERRLA, EOMI, Mucous membr. moist/pink Neck: Supple Lungs: Clear to auscultation, Normal air movement Cardiovascular: Regular rate, Normal S1, Normal S2, No murmurs, Gallops, Rubs Abdomen: Normal bowel sounds, Soft, No tenderness Neuro: Cranial nerves 3-12 NL Medications Current Medications Medications Dose Ordered Sig/Jeremiah Route Start Time Stop Time Status Last Admin Dose Admin Ondansetron HCl 4 mg Q4HP PRN IV 01/11/25 11:00 Enoxaparin Sodium 40 mg DAILY SC 01/12/25 10:00 Acetaminophen 650 mg Q6HP PRN PO 01/11/25 11:00 01/12/25 15:31 650 MG Thiamine HCl 100 mg DAILY PO 01/12/25 10:00 01/12/25 10:12 100 MG Folic Acid 1 mg DAILY PO 01/12/25 10:00 01/12/25 10:11 1 MG Multivitamins 1 tab DAILY PO 01/12/25 10:00 01/12/25 10:12 1 TAB Diagnostic Test (Pha) 1 strip ACHS 01/11/25 11:30 01/12/25 21:44 1 STRIP Insulin Human Regular ACHS SC 01/11/25 11:30 01/12/25 21:57 4 UNITS Dextrose 50 ml UD PRN IV 01/11/25 11:00 Atorvastatin Calcium 20 mg HS PO 01/11/25 22:00 01/12/25 21:34 20 MG Lisinopril 20 mg BID PO 01/11/25 22:00 01/11/25 21:44 20 MG Pregabalin 75 mg TID PO 01/11/25 14:00 01/12/25 21:35 75 MG Quetiapine Fumarate 50 mg HS PO 01/11/25 22:00 01/12/25 21:35 50 MG Sertraline HCl 25 mg DAILY PO 01/12/25 10:00 01/12/25 10:12 25 MG Patient Own Medication 15 mg DAILY PO 01/12/25 10:00 Mirtazapine 15 mg QPM PO 01/11/25 18:00 01/12/25 18:10 15 MG Gabapentin 300 mg Q8HR PO 01/12/25 22:00 01/12/25 21:34 300 MG Acetaminophen/ Hydrocodone Bitart 1 tab Q4HPRN PRN PO 01/12/25 16:00 01/12/25 18:48 1 TAB Lorazepam 1 mg Q4HPRN PRN IV 01/12/25 16:00 01/12/25 18:23 1 MG Chlordiazepoxide HCl 25 mg Q4HR PO 01/12/25 18:00 01/12/25 21:34 25 MG Folic Acid 1 mg/ Magnesium Sulfate 8 meq/ Multivitamins 10 ml/Thiamine HCl 100 mg/Sodium Chloride 1,013.2 ml @ 126.247 mls/hr DAILY@1800 INJ 01/12/25 18:00 01/12/25 18:34 126.247 MLS/HR Laboratory Results Laboratory Tests 01/12/25 05:13 Chemistry Test 01/12/25 05:13 Albumin 4.0 g/dL (3.2-4.8) Calcium Level 9.8 mg/dL (8.7-10.4) Total Protein 6.7 g/dL (5.7-8.2) LFT Test 01/12/25 05:13 Alanine Aminotransferase (ALT) 17 U/L (7-40) Alkaline Phosphatase 105 U/L (46-116) Aspartate Amino Transferase (AST) 22 U/L (13-40) Total Bilirubin 0.7 mg/dL (0.2-1.0) Urinalysis Test 01/12/25 10:00 Urine Color Yellow (Yellow) Urine Clarity Clear (Clear) Urine pH 5.5 (5.0-9.0) Urine Specific [place] 1.014 (1.001-1.035) Urine Protein Negative (Negative) Urine Ketones Trace (Negative) Urine Blood Negative /uL (Negative) Urine Nitrite Negative (Negative) Urine Bilirubin Negative (Negative) Urine Urobilinogen Normal mg/dL (Negative) Urine Leukocyte Esterase Negative /uL (Negative) Urine RBC <1 /hpf (0 - 3) Urine Microscopic WBC 1 /HPF (0-3) Urine Squamous Epithelial Cells Few /hpf (<5) Urine Bacteria None seen /hpf (None Seen) Urine Mucus Few (None Seen) Urine Glucose Normal mg/dL (Normal) Labs and/or images reviewed: Labs reviewed by me Assessment/Plan Assessment/Plan Generalized weakness ETOH withdrawal Tobacco use Substance abuse Medication noncompliance Coronary artery disease Hypertension Hyperlipidemia Diabetes type 2 History of left eye blindness History of CABG Continuing current management. I am going to add Librium 25 mg q.6 hours. I will add gabapentin 400 mg t.i.d.. I will start the patient on banana bag which including vitamin B1, folic acid and multivitamin in 1 L of normal saline and run at 125 mL/hr Advised the patient to stop drinking more than 20 minutes. Patient said he was recently discharged from the hospital. But by the time he left the hospital he continuing to drink a lot to the point that he vomited vodka out. Recommend alcohol rehab. Continuing sliding scale insulin. Plan discussed with: Patient, Other (RN) My Orders Orders - MARY NEUMANN MD Procedure Category Date Status Time Gabapentin Capsule PHA 01/12/25 In Process (Neurontin Capsule) 22:00 Hydrocodone-Acet PHA 01/12/25 In Process 5/325mg Tab ([place] 16:00 Lorazepam 2mg/Ml Inj PHA 01/12/25 In Process (Ativan Inj) 16:00 Chlordiazepoxide Hcl PHA 01/12/25 In Process Capsule (Librium Ca 18:00 Folic Acid... PHA 01/12/25 In Process 18:00 Date of Service: January 12, 2025 Billing Provider: MARY NEUMANN MD Common Visit Codes: [id number] INP/OBS CARE(HIGH) MARY NEUMANN MD January 12, 2025 23:06
[2025-01-13 05:00] VITALS: BP 107/75; PULSE 66; RESP 18; TEMP 97.7; O2SAT 93
[2025-01-13 07:46] VITALS: RESP 14; O2SAT 0
[2025-01-13 20:00] VITALS: RESP 17; O2SAT 0
[2025-01-13 21:00] VITALS: BP 106/80; PULSE 71; RESP 17; TEMP 97.6; O2SAT 91
--- NOTE | 2025-01-13 23:07 | DVHPN2 ---
Subjective The patient seen and examined at bedside. Very sleepy today. Reviewed: Care Plan, H&P, Labs, Medications, Previous Orders Changes from previous H/P or p: No Changes Objective Vitals Vital Signs Date Time Temp Pulse Resp B/P (MAP) Pulse Ox O2 Delivery O2 Flow Rate FiO2 01/13/25 22:00 106/80 01/13/25 07:46 14 0 Room Air* 0 21 01/13/25 05:00 97.7 66 97.7 Intake/Output Intake and Output 01/13/25 07:00 Intake Total 1411.953 ml Balance 1411.953 ml Intake Oral 525 ml IV Total 886.953 ml # Voids 1 # Bowel Movements 1 General Appearance: Alert, No acute distress HEENT: Atraumatic, PERRLA, EOMI, Mucous membr. moist/pink Neck: Supple Lungs: Clear to auscultation, Normal air movement Cardiovascular: Regular rate, Normal S1, Normal S2, No murmurs, Gallops, Rubs Abdomen: Normal bowel sounds, Soft, No tenderness Neuro: Cranial nerves 3-12 NL Medications Current Medications Medications Dose Ordered Sig/Jeremiah Route Start Time Stop Time Status Last Admin Dose Admin Ondansetron HCl 4 mg Q4HP PRN IV 01/11/25 11:00 Enoxaparin Sodium 40 mg DAILY SC 01/12/25 10:00 01/13/25 10:54 40 MG Acetaminophen 650 mg Q6HP PRN PO 01/11/25 11:00 01/12/25 15:31 650 MG Thiamine HCl 100 mg DAILY PO 01/12/25 10:00 01/13/25 10:54 100 MG Folic Acid 1 mg DAILY PO 01/12/25 10:00 01/13/25 10:54 1 MG Multivitamins 1 tab DAILY PO 01/12/25 10:00 01/13/25 10:54 1 TAB Diagnostic Test (Pha) 1 strip ACHS 01/11/25 11:30 01/13/25 21:54 1 STRIP Insulin Human Regular ACHS SC 01/11/25 11:30 01/13/25 22:00 3 UNITS Dextrose 50 ml UD PRN IV 01/11/25 11:00 Atorvastatin Calcium 20 mg HS PO 01/11/25 22:00 01/13/25 21:53 20 MG Lisinopril 20 mg BID PO 01/11/25 22:00 01/13/25 11:05 20 MG Pregabalin 75 mg TID PO 01/11/25 14:00 01/13/25 21:53 75 MG Quetiapine Fumarate 50 mg HS PO 01/11/25 22:00 01/13/25 21:53 50 MG Sertraline HCl 25 mg DAILY PO 01/12/25 10:00 01/13/25 10:54 25 MG Patient Own Medication 15 mg DAILY PO 01/12/25 10:00 Mirtazapine 15 mg QPM PO 01/11/25 18:00 01/13/25 17:22 15 MG Gabapentin 300 mg Q8HR PO 01/12/25 22:00 01/13/25 21:53 300 MG Acetaminophen/ Hydrocodone Bitart 1 tab Q4HPRN PRN PO 01/12/25 16:00 01/13/25 20:12 1 TAB Lorazepam 1 mg Q4HPRN PRN IV 01/12/25 16:00 01/13/25 20:12 1 MG Chlordiazepoxide HCl 25 mg Q4HR PO 01/12/25 18:00 01/13/25 21:53 25 MG Laboratory Results Laboratory Tests 01/12/25 05:13 Urinalysis Test 01/12/25 10:00 Urine Color Yellow (Yellow) Urine Clarity Clear (Clear) Urine pH 5.5 (5.0-9.0) Urine Specific [place] 1.014 (1.001-1.035) Urine Protein Negative (Negative) Urine Ketones Trace (Negative) Urine Blood Negative /uL (Negative) Urine Nitrite Negative (Negative) Urine Bilirubin Negative (Negative) Urine Urobilinogen Normal mg/dL (Negative) Urine Leukocyte Esterase Negative /uL (Negative) Urine RBC <1 /hpf (0 - 3) Urine Microscopic WBC 1 /HPF (0-3) Urine Squamous Epithelial Cells Few /hpf (<5) Urine Bacteria None seen /hpf (None Seen) Urine Mucus Few (None Seen) Urine Glucose Normal mg/dL (Normal) Microbiology Microbiology Date/Time Source Procedure Growth Status 01/12/25 18:42 Nose MRSA Screen - Final Complete Labs and/or images reviewed: Labs reviewed by me Assessment/Plan Assessment/Plan Generalized weakness ETOH withdrawal Tobacco use Substance abuse Medication noncompliance Coronary artery disease Hypertension Hyperlipidemia Diabetes type 2 History of left eye blindness History of CABG Continuing current management. I am going to change Librium 25 mg q.6 hours as needed. Continuing gabapentin 400 mg t.i.d.. I will start the patient on banana bag which including vitamin B1, folic acid and multivitamin in 1 L of normal saline and run at 125 mL/hr Advised the patient to stop drinking more than 20 minutes. Recommend alcohol rehab. Continuing sliding scale insulin. This medical document was created using an electronic medical record system with [employer] direct computerized dictation system. Although this document has been carefully reviewed, there may still be some phonetic and typographical errors. These areas are purely typographical due to imperfections of the software programs, and do not reflect any compromise in the patient's medical care. Plan discussed with: Patient Date of Service: January 13, 2025 Billing Provider: MARY NEUMANN MD Common Visit Codes: [id number] INP/OBS CARE(HIGH) MARY NEUMANN MD January 13, 2025 23:06
[2025-01-14] VITALS (11 sets, daily range): BP systolic 94–119; BP diastolic 63–76; PULSE 56–70; RESP 15–22; TEMP 96.3–97.9; O2SAT 90–100
[2025-01-14] MEDS: chlordiazePOXIDE HCL 25 MG CAP PO SCH (06:15)
[2025-01-14 07:45] LABS: Basophils # (auto) 0.1 10 ^3/uL (0-0.2); Basophils % (auto) 1.3 % (0.0-2.0); Eosinophils # (auto) 0.5 10 ^3/uL (0-0.8); Eosinophils % (auto) 10.1 % (0.0-7.0); Hematocrit 48.6 % (41.0-53.0); Hemoglobin 16.4 g/dL (13.5-17.5); Lymphocytes # (auto) 2.3 10 ^3/uL (0.4-5.4); Lymphocytes % (auto) 47.5 % (10.0-50.0); Mean Corpuscular Hemoglobin 30.8 pg (28.0-32.0); Mean Corpuscular Hgb Conc. 33.7 g/dL (32.0-36.0); Mean Corpuscular Volume 91.4 fL (80.0-100.0); Monocytes # (auto) 0.4 10 ^3/uL (0-1.3); Monocytes % (auto) 8.3 % (0.0-12.0); Neutrophils # (auto) 1.6 10 ^3/uL (1.6-8.6); Neutrophils % (auto) 32.8 % (37.0-80.0); Nucleated Red Blood Cells % 0.6 %; Platelet Count (auto) 187 10^3/uL (140-450); Red Blood Cells 5.32 10^6/uL (4.5-5.90); Red Cell Distribution Width 16.4 % (11.8-14.3); White Blood Cell 4.9 10^3/uL (4.4-10.8)
[2025-01-14 07:51] LABS: Potassium 3.7 mmol/L (3.5-5.1); Sodium 139 mmol/L (136-145)
[2025-01-14 07:52] LABS: Anion Gap 8 (5-15); Calcium 9.7 mg/dL (8.7-10.4); Carbon Dioxide 22 mmol/L (20-31)
[2025-01-14 07:57] LABS: BUN/Creatinine Ratio 9.1 (10.0-20.0)
[2025-01-14 07:58] LABS: Blood Urea Nitrogen 8 mg/dL (9-23); Chloride 109 mmol/L (98-107); Glucose 147 mg/dL (74-106)
[2025-01-14] MEDS: chlordiazePOXIDE HCL 25 MG CAP PO PRN (11:06)
--- NOTE | 2025-01-14 14:26 | DVHPN2 ---
Subjective Patient requesting medications for alcohol withdrawal. Reviewed: Care Plan, H&P, Labs, Medications, Previous Orders Changes from previous H/P or p: No Changes Objective Vitals Vital Signs Date Time Temp Pulse Resp B/P (MAP) Pulse Ox O2 Delivery O2 Flow Rate FiO2 01/14/25 13:00 97.4 68 15 101/69 (80) 97 97.4 01/14/25 08:00 Nasal Cannula* 2 28 Intake/Output Intake and Output 01/14/25 07:00 Intake Total 1900 ml Output Total 1000 ml Balance 900 ml Intake Oral 1900 ml Output Urine Total 1000 ml # Voids 1 # Bowel Movements 3 General Appearance: Alert, Oriented X3, No acute distress HEENT: Atraumatic, PERRLA, EOMI, Mucous membr. moist/pink Neck: Supple Lungs: Clear to auscultation, Normal air movement Cardiovascular: Regular rate, Normal S1, Normal S2, No murmurs, Gallops, Rubs Abdomen: Normal bowel sounds, Soft, No tenderness Neuro: Cranial nerves 3-12 NL Skin: Dry, Intact Psych/Mental Status: Mental status NL, Mood NL Medications Current Medications Medications Dose Ordered Sig/Jeremiah Route Start Time Stop Time Status Last Admin Dose Admin Ondansetron HCl 4 mg Q4HP PRN IV 01/11/25 11:00 Enoxaparin Sodium 40 mg DAILY SC 01/12/25 10:00 01/14/25 09:49 40 MG Acetaminophen 650 mg Q6HP PRN PO 01/11/25 11:00 01/12/25 15:31 650 MG Thiamine HCl 100 mg DAILY PO 01/12/25 10:00 01/14/25 09:48 100 MG Folic Acid 1 mg DAILY PO 01/12/25 10:00 01/14/25 09:49 1 MG Multivitamins 1 tab DAILY PO 01/12/25 10:00 01/14/25 09:49 1 TAB Diagnostic Test (Pha) 1 strip ACHS 01/11/25 11:30 01/14/25 11:06 1 STRIP Insulin Human Regular ACHS SC 01/11/25 11:30 01/14/25 11:13 2 UNITS Dextrose 50 ml UD PRN IV 01/11/25 11:00 Atorvastatin Calcium 20 mg HS PO 01/11/25 22:00 01/13/25 21:53 20 MG Lisinopril 20 mg BID PO 01/11/25 22:00 01/13/25 11:05 20 MG Pregabalin 75 mg TID PO 01/11/25 14:00 01/14/25 13:26 75 MG Quetiapine Fumarate 50 mg HS PO 01/11/25 22:00 01/13/25 21:53 50 MG Sertraline HCl 25 mg DAILY PO 01/12/25 10:00 01/14/25 09:48 25 MG Patient Own Medication 15 mg DAILY PO 01/12/25 10:00 Mirtazapine 15 mg QPM PO 01/11/25 18:00 01/13/25 17:22 15 MG Gabapentin 300 mg Q8HR PO 01/12/25 22:00 01/14/25 13:26 300 MG Acetaminophen/ Hydrocodone Bitart 1 tab Q4HPRN PRN PO 01/12/25 16:00 01/14/25 12:40 1 TAB Lorazepam 1 mg Q4HPRN PRN IV 01/12/25 16:00 01/14/25 12:35 1 MG Chlordiazepoxide HCl 25 mg Q6HPRN PRN PO 01/14/25 11:15 01/14/25 11:06 25 MG Laboratory Results Laboratory Tests 01/14/25 06:55 Chemistry Test 01/14/25 06:55 Calcium Level 9.7 mg/dL (8.7-10.4) Urinalysis Test 01/12/25 10:00 Urine Color Yellow (Yellow) Urine Clarity Clear (Clear) Urine pH 5.5 (5.0-9.0) Urine Specific [place] 1.014 (1.001-1.035) Urine Protein Negative (Negative) Urine Ketones Trace (Negative) Urine Blood Negative /uL (Negative) Urine Nitrite Negative (Negative) Urine Bilirubin Negative (Negative) Urine Urobilinogen Normal mg/dL (Negative) Urine Leukocyte Esterase Negative /uL (Negative) Urine RBC <1 /hpf (0 - 3) Urine Microscopic WBC 1 /HPF (0-3) Urine Squamous Epithelial Cells Few /hpf (<5) Urine Bacteria None seen /hpf (None Seen) Urine Mucus Few (None Seen) Urine Glucose Normal mg/dL (Normal) Microbiology Microbiology Date/Time Source Procedure Growth Status 01/12/25 18:42 Nose MRSA Screen - Final Complete Labs and/or images reviewed: Labs reviewed by me, Image(s) reviewed by me Assessment/Plan Assessment/Plan Impression: -alcohol withdrawal syndrome -alcoholism -diabetes mellitus -coronary artery disease with previous CABG -marijuana and tobacco use -COPD -obesity Plan: -social service consultation for repeated admissions for alcohol withdrawal. -regular insulin sliding scale -continue Librium -MVI, folic acid -bronchodilators -lifestyle modification education provided with the patient regarding repeated admissions for alcoholism. Patient needs to be assisted by P pillowcase cleanercounselor manager to repeated admissions Total time spent with patient discussing and formulating plan of care: 35 minutes. This medical document was created using an electronic medical record system with [employer] dictation system. Although this document has been carefully reviewed, there may still be some phonetic and typographical errors. These areas are purely typographical due to imperfections of the software programs, and do not reflect any compromise in the patient's medical care. Plan discussed with: Patient, Other (RN) Date of Service: January 14, 2025 Billing Provider: GALLITO GIBSON NP Common Visit Codes: [id number] INP/OBS CARE(HIGH) Secondary Visit Codes: [id number] CHNG SMOKING >10MIN GALLITO GIBSON NP January 14, 2025 14:25
[2025-01-14] MEDS: IPRATROPIUM BROM 0.5 MG/2.5ML INH SOL NEB SCH (18:24)
[2025-01-14] MEDS: ALBUTEROL SULF 2.5 MG/0.5ML(0.5%) NEB SOLN NEB SCH (18:24)
[2025-01-15] VITALS (10 sets, daily range): BP systolic 107–125; BP diastolic 81–85; PULSE 62–77; RESP 16–17; TEMP 97.8–98.2; O2SAT 95–100
--- NOTE | 2025-01-15 10:49 | DVHDS2 ---
Discharge Summary Date of Admission January 11, 2025 at 10:51 Date of Discharge: January 15, 2025 Admitting Diagnosis Generalized weakness secondary to acute alcohol withdrawal Labs/Diagnostic Data: Laboratory Results Test 01/15/25 06:04 01/14/25 06:55 01/12/25 10:00 01/12/25 05:13 POC Glucose 234 mg/dl (70-106) White Blood Count 4.9 10^3/uL (4.4-10.8) Red Blood Count 5.32 10^6/uL (4.5-5.90) Hemoglobin 16.4 g/dL (13.5-17.5) Hematocrit 48.6 % (41.0-53.0) Mean Corpuscular Volume 91.4 fL (80.0-100.0) Mean Corpuscular Hemoglobin 30.8 pg (28.0-32.0) Mean Corpuscular Hemoglobin Concent 33.7 g/dL (32.0-36.0) Red Cell Distribution Width 16.4 % (11.8-14.3) Platelet Count 187 10^3/uL (140-450) Mean Platelet Volume 10.3 fL (6.9-10.8) Neutrophils (%) (Auto) 32.8 % (37.0-80.0) Lymphocytes (%) (Auto) 47.5 % (10.0-50.0) Monocytes (%) (Auto) 8.3 % (0.0-12.0) Eosinophils (%) (Auto) 10.1 % (0.0-7.0) Basophils (%) (Auto) 1.3 % (0.0-2.0) Neutrophils # (Auto) 1.6 10 ^3/uL (1.6-8.6) Lymphocytes # (Auto) 2.3 10 ^3/uL (0.4-5.4) Monocytes # (Auto) 0.4 10 ^3/uL (0-1.3) Eosinophils # (Auto) 0.5 10 ^3/uL (0-0.8) Basophils # (Auto) 0.1 10 ^3/uL (0-0.2) Nucleated Red Blood Cells 0.6 % Sodium Level 139 mmol/L (136-145) Potassium Level 3.7 mmol/L (3.5-5.1) Chloride Level 109 mmol/L (98-107) Carbon Dioxide Level 22 mmol/L (20-31) Anion Gap 8 (5-15) Blood Urea Nitrogen 8 mg/dL (9-23) Creatinine 0.88 mg/dL (0.700-1.30) Glomerular Filtration Rate Calc 101 mL/min (>90) BUN/Creatinine Ratio 9.1 (10.0-20.0) Serum Glucose 147 mg/dL (74-106) Calcium Level 9.7 mg/dL (8.7-10.4) Urine Color Yellow (Yellow) Urine Clarity Clear (Clear) Urine pH 5.5 (5.0-9.0) Urine Specific [place] 1.014 (1.001-1.035) Urine Protein Negative (Negative) Urine Ketones Trace (Negative) Urine Blood Negative /uL (Negative) Urine Nitrite Negative (Negative) Urine Bilirubin Negative (Negative) Urine Urobilinogen Normal mg/dL (Negative) Urine Leukocyte Esterase Negative /uL (Negative) Urine RBC <1 /hpf (0 - 3) Urine Microscopic WBC 1 /HPF (0-3) Urine Squamous Epithelial Cells Few /hpf (<5) Urine Bacteria None seen /hpf (None Seen) Urine Mucus Few (None Seen) Urine Glucose Normal mg/dL (Normal) Urine Opiates Screen Neg (NEGATIVE) Urine Fentanyl Screen Neg (NEGATIVE) Urine Barbiturates Screen Neg (NEGATIVE) Urine Phencyclidine Screen Neg (NEGATIVE) Urine Amphetamines Screen Neg (NEGATIVE) Urine Benzodiazepines Screen Pos (NEGATIVE) Urine Cocaine Screen Neg (NEGATIVE) Urine Cannabinoids Screen Pos (NEGATIVE) Total Bilirubin 0.7 mg/dL (0.2-1.0) Aspartate Amino Transferase (AST) 22 U/L (13-40) Alanine Aminotransferase (ALT) 17 U/L (7-40) Alkaline Phosphatase 105 U/L (46-116) Total Protein 6.7 g/dL (5.7-8.2) Albumin 4.0 g/dL (3.2-4.8) Test 01/11/25 09:27 Magnesium Level 1.6 mg/dL (1.6-2.6) Plasma/Serum Blood Alcohol < 3.0 mg/dL (<10) Other Laboratory Tests 01/14/25 06:55 Brief Hx & Hospital Course: History of Present Illness Stefano Malik is a 54-year-old male with past medical history of CAD status post CABG, hypertension, hyperlipidemia, diabetes type 2, and left eye blindness who presents to the ED with generalized weakness x4 days. Patient reports that he is homeless and he drinks about 2 bottles of vodka per day as well as smokes 1- 1/2 packs of cigarettes per day, and uses marijuana. Patient states that he is homeless and unable to take medications as he does not have any. Patient reports that he hears voices and it tells him random things. He reports that those voices do not tell him to hurt himself or hurt others. Patient denies any harm of hurting himself or has any plans on hurting himself. Patient denies any chest pain, shortness of breath, fever, chills, lightheadedness, dizziness, abdominal pain, nausea, vomiting, or diarrhea. Course of hospitalization: Patient was given adequate IV hydration, as well as benzodiazepines per [facility] protocol. Patient has had multiple admissions to this hospital, for which I myself taking care of this patient. Patient reports that his female friend that he was living with may have discharged him from her living quarters due to his alcoholism. Social service consultation has been placed for discharge planning. Patient is no longer exhibiting signs of alcohol withdrawal. Patient does have pain seeking behaviors, request for additional pain medication despite being awakened from a deep sleep. Patient has been instructed on multiple occasions including this admission to rethink his life with respect to his alcoholism and polysubstance abuse. Social service consultation has also been placed regarding appropriate resources for this matter. Patient will be discharged home and continue all previous home medications. All questions answered. Physical examination General: Alert and Oriented x3. No acute distress. Well-nourished. Eyes: EOMI. Anicteric. HENT: Moist mucous membranes. Lungs: Clear to auscultation bilaterally. No accessory muscle use. Cardiovascular: Regular rate and rhythm. No murmur. No JVD. Abdomen: Soft, non-tender and non-distended. No palpable masses. Extremities: No edema. Non-tender. Skin: No rashes or lesions. Warm. Neurologic: No focal neurological deficits. CN II-XII grossly intact, but not individually tested. Psychiatric: Cooperative. Appropriate mood and affect. Total time spent with patient discussing and formulating plan of care: 35 minutes. This medical document was created using an electronic medical record system with [email or web address] dictation system. Although this document has been carefully reviewed, there may still be some phonetic and typographical errors. These areas are purely typographical due to imperfections of the software programs, and do not reflect any compromise in the patient's medical care. Condition at Discharge: Poor Final Diagnosis/Problems List Alcohol withdrawal Secondary diagnosis: -alcoholism -diabetes mellitus -coronary artery disease with previous CABG -marijuana and tobacco use -COPD -obesity Discharge Disposition: Home Discharge Instruct/Medications Diet: Consistent carbohydrate, Cardiac 2g Na,low cholest Activity: No Restrictions, As Tolerated Follow Up/Referral: Follow up with PCP and/or DC clinic in one week Medications: Continue all home medications 36 Discharge Statement: "Patient was advised to return to the ER or call 911 if any headaches, dizziness, shortness of breath, chest pain, abdominal pain, bleeding, fevers, or worsening of medical condition. Patient was counseled about treatment plan, medications, possible side effects, patient�verbalized understanding. All questions were answered to the best of my ability. This discharge took greater then 30 minutes in planning, reviewing documentation, counseling the patient, and discussing with other team members." ASSESSMENT ASSESSMENT Assessment Alcohol withdrawal Date of Service: January 15, 2025 Billing Provider: GALLITO GIBSON NP Common Visit Codes: 50571-HOO/OBS DISCH DAY >30min GALLITO GIBSON NP January 15, 2025 10:49
== END 2025-01-15 14:24 | disposition home or self-care (01) | DRG 775 ==
LOC: EDBD 09:01 → ER 09:01 → OVERFLOW 10:51 → TELE-WESTW 15:54 → WEST WING 01-12 02:49 → CENTRAL 01-12 13:30
PROVIDERS: ADMIT Nurse Practitioner Acute Care; ATTEND Nurse Practitioner Acute Care
DX: F10.239 Alcohol dependence with withdrawal, unspecified (principal); E11.9 Type 2 diabetes mellitus without complications; E66.9 Obesity, unspecified; E78.5 Hyperlipidemia, unspecified; I10 Essential (primary) hypertension; J44.9 Chronic obstructive pulmonary disease, unspecified; H54.62 Unqualified visual loss, left eye, normal vision right eye; I25.10 Atherosclerotic heart disease of native coronary artery without angina pectoris; Z68.23 Body mass index [BMI] 23.0-23.9, adult; Z59.00 Homelessness unspecified; Z91.148 Patient's other noncompliance with medication regimen for other reason; Z95.1 Presence of aortocoronary bypass graft; Z87.891 Personal history of nicotine dependence; Y90.0 Blood alcohol level of less than 20 mg/100 ml
CPT/HCPCS: 36415; 70450; 71045; 80048; 80053; 80307; 80320; 81001; 82962; 83735; 85025; 87081; 93005; 94640; 96374; 96375; G0378; J1815

== ENCOUNTER 2025-01-17 17:10 | Emergency (ER) | payer MEDICAID ==
[~2025-01-17] VITALS: Ht 182.9 cm; Wt 95.5 kg
[2025-01-17 17:59] LABS: Basophils # (auto) 0.1 10 ^3/uL (0-0.2); Eosinophils # (auto) 0.4 10 ^3/uL (0-0.8); Eosinophils % (auto) 4.9 % (0.0-7.0); Hematocrit 49.4 % (41.0-53.0); Lymphocytes # (auto) 3.5 10 ^3/uL (0.4-5.4); Lymphocytes % (auto) 42.4 % (10.0-50.0); Mean Corpuscular Hgb Conc. 34.4 g/dL (32.0-36.0); Mean Corpuscular Volume 89.9 fL (80.0-100.0); Monocytes # (auto) 0.5 10 ^3/uL (0-1.3); Monocytes % (auto) 6.3 % (0.0-12.0); Neutrophils # (auto) 3.8 10 ^3/uL (1.6-8.6); Neutrophils % (auto) 45.4 % (37.0-80.0); Nucleated Red Blood Cells % 0.2 %; Platelet Count (auto) 199 10^3/uL (140-450); Red Cell Distribution Width 16.3 % (11.8-14.3); White Blood Cell 8.3 10^3/uL (4.4-10.8)
[2025-01-17 18:10] VITALS: PULSE 70; RESP 19; O2SAT 96
[2025-01-17 18:19] LABS: Alanine Aminotransferase 21 U/L (7-40); Albumin 4.4 g/dL (3.2-4.8); Alkaline Phosphatase 104 U/L (46-116); Anion Gap 14 (5-15); Aspartate Aminotransferase 17 U/L (13-40); BUN/Creatinine Ratio 8.4 (10.0-20.0); Bilirubin, Total 0.6 mg/dL (0.2-1.0); Blood Urea Nitrogen 7 mg/dL (9-23); Calcium 10.3 mg/dL (8.7-10.4); Carbon Dioxide 18 mmol/L (20-31); Chloride 106 mmol/L (98-107); Glucose 235 mg/dL (74-106); Potassium 3.9 mmol/L (3.5-5.1); Sodium 138 mmol/L (136-145); Total Protein 6.8 g/dL (5.7-8.2)
[2025-01-17] MEDS: SODIUM CHLORIDE 0.9% 1,000 ML IV ONE (18:28)
[2025-01-17] MEDS: chlordiazePOXIDE HCL 25 MG CAP PO ONE (18:29)
[2025-01-17] MEDS: LORazepam 2MG/ML-1ML VIAL IV ONE ×2 (18:29→21:44)
--- NOTE | 2025-01-17 18:40 | ED.PDOC ---
Psychiatric HPI Comments 54y M who presents to the ED via EMS for chief complaint of ETOH withdrawal. Pt is resident at [facility] and states facility called after pt was not feeling well today and felt dizzy. Pt states he drank 2 40 oz bottles today and normally drinks 2/5 vodka daily. Pt states he also smoked marijuana 30 mins prior to ED arrival. Pt states he is daily drinker and states he will get ETOH withdrawal if he stops drinking. EMS states otherwise has stable vitals and is alert and oriented x 4. Pt now in the ED, otherwise is yelling and refusing to stay in his designated treatment area, complaining of chest pain, and self- inducing vomiting. Pt has been to [facility] multiple times in the past few weeks for similar complaints. Pt has noted BP of 123/44 with otherwise stable temp of 98.1 F, rr 18, heart rate 81, and 02 sat of 95% on room air. Pt otherwise denies any other symptoms at this time. Chief Complaint: Withdrawal Time Seen by MD: 18:37 Primary Care Provider: DENIES Reviewed Notes: Dye Room Helper Notes, Medications, Allergies Information Source: Emergency Med Personnel Mode of Arrival: EMS Past Medical History PAST MEDICAL HISTORY: CAD, DM, High Lipids, HTN Past Medical History (Other): Alcohol dependence Surgical History: CABG Family History Family History: Reviewed,noncontributory to illness Social History Smoker: Non-Smoker Alcohol: Heavy Drugs: Denies Drug Use Lives In: Other Constitutional: denies: chills, diaphoresis, fatigue, fever, malaise, sweats, weakness, others EENTM: denies: blurred vision, double vision, ear bleeding, ear discharge, ear drainage, ear pain, ear ringing, eye pain, eye redness, hearing loss, mouth pain, mouth swelling, nasal discharge, nose bleeding, nose congestion, nose pain, photophobia, tearing, throat pain, throat swelling, voice changes, others Respiratory: denies: cough, hemoptysis, orthopnea, SOB at rest, shortness of breath, SOB with excertion, stridor, wheezing, others Cardiovascular: denies: chest pain, dizzy spells, diaphoresis, Dyspnea on exertion, edema, irregular heart beat, left arm pain, lightheadedness, palpitations, PND, syncope, others Gastrointestinal: denies: abdomen distended, abdominal pain, blood streaked bowels, constipated, diarrhea, dysphagia, difficulty swallowing, hematemesis, melena, nausea, poor appetite, poor fluid intake, rectal bleeding, rectal pain, vomiting, others Genitourinary: denies: burning, dysuria, flank pain, frequency, hematuria, incontinence, penile discharge, penile sore, pain, testicle pain, testicle swelling, urgency, others Neurological: denies: dizziness, fainting, headache, left sided numbness, left sided weakness, numbness, paresthesia, pre-existing deficit, right sided numbness, right sided weakness, seizure, speech problems, tingling, tremors, weakness, others Musculoskeletal: denies: back pain, gout, joint pain, joint swelling, muscle pain, muscle stiffness, neck pain, others Integumetry: denies: bruises, change in color, change in hair/nails, dryness, laceration, lesions, lumps, rash, wounds, others Allergic/Immunocompromised: denies: Difficulty Healing, Frequent Infections, Hives, Itching, others Hematologic/Lymphatic: denies: anemia, blood clots, easy bleeding, easy bruising, swollen glands, others Endocrine: denies: excessive hunger, excessive sweating, excessive thirst, excessive urination, flushing, intolerance to cold, intolerance to heat, unexplained weight gain, unexplained weight loss, others Psychiatric: denies: anxiety, bipolar disorder, depression, hopeless, panic disorder, schizophrenia, sleepless, suicidal, others All Other Systems: Reviewed and Negative Physical Exam General Appearance: Mild Distress, Obese HEENT: Other (Pupils and face symmetric. Moist mucous membranes.) Neck: Full Range of Motion, Normal Inspection Respiratory: Lungs Clear, No Accessory Muscle Use, No Respiratory Distress, Normal Breath Sounds Cardiovascular: No Edema, No JVD, Regular Rate/Rhythm Breast Exam: Deferred Gastrointestinal: Non Tender, Soft Genitalia: Deferred Pelvic: Deferred Rectal: Deferred Extremities: Normal inspection, Normal range of motion, Non-tender, No pedal edema Neurologic: Alert (Oriented x4), Normal Affect, Other (Anxious. Ambulatory.) Cerebellar Function: NOT DONE Reflexes: NOT DONE Skin: Dry, Normal Color, Warm Lymphatic: NOT DONE EKG EKG : Comments Sinus rhythm, rate 63, normal intervals, left axis deviation, old inferior infarct, nonspecific T change. Was a procedure done? Was a procedure done?: No Psych Differential Dx OD Differential Dx: Anxiety, Panic Disorder Suicidal Differential Dx: Alcohol Abuse, Substance Abuse Intoxication Differential Dx: Alcohol Withdraw Syndrome, Hallucinations, Drug- Induced Psychosis, Electrolyte Imbalance, Intoxication, Substance Abuse Disorder Other Differentail Dx ACS, OK, angina, pancreatitis, among others X-Ray, Labs, Meds, VS Vital Signs Date Time Temp Pulse Resp B/P (MAP) Pulse Ox O2 Delivery O2 Flow Rate FiO2 01/17/25 20:32 67 14 129/78 01/17/25 19:51 63 01/17/25 19:40 97 Room Air* 0 21 01/17/25 18:10 98.6 70 19 124/85 (98) 96 98.6 01/17/25 18:10 70 19 96 Room Air* 0 21 01/17/25 17:15 98.1 81 18 123/44 (70) 95 98.1 Lab Test 01/17/25 19:01 01/17/25 18:40 01/17/25 17:47 Range/Units Troponin I High Sensitivity 7 7 </=54 ng/L Urine Color Light-yellow Yellow Urine Clarity Clear Clear Urine pH 6.0 5.0-9.0 Urine Specific [place] 1.005 1.001-1.035 Urine Protein Negative Negative Urine Ketones Trace Negative Urine Blood Negative Negative /uL Urine Nitrite Negative Negative Urine Bilirubin Negative Negative Urine Urobilinogen Normal Negative mg/dL Urine Leukocyte Esterase Negative Negative /uL Urine RBC <1 0 - 3 /hpf Urine Microscopic WBC < 1 0-3 /HPF Urine Squamous Epithelial Cells None seen <5 /hpf Urine Bacteria None seen None Seen /hpf Urine Glucose Normal Normal mg/dL Urine Opiates Screen Neg NEGATIVE Urine Fentanyl Screen Neg NEGATIVE Urine Barbiturates Screen Neg NEGATIVE Urine Phencyclidine Screen Neg NEGATIVE Urine Amphetamines Screen Neg NEGATIVE Urine Benzodiazepines Screen Pos NEGATIVE Urine Cocaine Screen Neg NEGATIVE Urine Cannabinoids Screen Pos NEGATIVE White Blood Count 8.3 # 4.4-10.8 10^3/uL Red Blood Count 5.50 4.5-5.90 10^6/uL Hemoglobin 17.0 13.5-17.5 g/dL Hematocrit 49.4 41.0-53.0 % Mean Corpuscular Volume 89.9 80.0-100.0 fL Mean Corpuscular Hemoglobin 31.0 28.0-32.0 pg Mean Corpuscular Hemoglobin Concent 34.4 32.0-36.0 g/dL Red Cell Distribution Width 16.3 H 11.8-14.3 % Platelet Count 199 140-450 10^3/uL Mean Platelet Volume 10.4 6.9-10.8 fL Neutrophils (%) (Auto) 45.4 37.0-80.0 % Lymphocytes (%) (Auto) 42.4 10.0-50.0 % Monocytes (%) (Auto) 6.3 0.0-12.0 % Eosinophils (%) (Auto) 4.9 0.0-7.0 % Basophils (%) (Auto) 1.0 0.0-2.0 % Neutrophils # (Auto) 3.8 1.6-8.6 10 ^3/uL Lymphocytes # (Auto) 3.5 0.4-5.4 10 ^3/uL Monocytes # (Auto) 0.5 0-1.3 10 ^3/uL Eosinophils # (Auto) 0.4 0-0.8 10 ^3/uL Basophils # (Auto) 0.1 0-0.2 10 ^3/uL Nucleated Red Blood Cells 0.2 % Sodium Level 138 136-145 mmol/L Potassium Level 3.9 3.5-5.1 mmol/L Chloride Level 106 98-107 mmol/L Carbon Dioxide Level 18 L 20-31 mmol/L Anion Gap 14 5-15 Blood Urea Nitrogen 7 L 9-23 mg/dL Creatinine 0.83 0.700-1.30 mg/dL Glomerular Filtration Rate Calc 103 >90 mL/min BUN/Creatinine Ratio 8.4 L 10.0-20.0 Serum Glucose 235 H 74-106 mg/dL Calcium Level 10.3 8.7-10.4 mg/dL Total Bilirubin 0.6 0.2-1.0 mg/dL Aspartate Amino Transferase (AST) 17 13-40 U/L Alanine Aminotransferase (ALT) 21 7-40 U/L Alkaline Phosphatase 104 46-116 U/L Ammonia < 10 L 11-32 umol/L B-Type Natriuretic Peptide 64.67 0-100 pg/mL Total Protein 6.8 5.7-8.2 g/dL Albumin 4.4 3.2-4.8 g/dL Lipase 35 12-53 U/L Plasma/Serum Blood Alcohol 34.2 H <10 mg/dL Current Medications Medications (Trade) Dose Ordered Sig/Jeremiah Route Start Time Stop Time Status Last Admin Sodium Chloride 1,000 ml @ 1,000 mls/hr Q1H ONCE IV 01/17/25 17:15 01/17/25 18:14 DC 01/17/25 18:28 Lorazepam (Ativan Inj) 1 mg ONCE ONCE IV 01/17/25 17:30 01/17/25 17:31 DC 01/17/25 18:29 Chlordiazepoxide HCl (Librium Capsule) 50 mg ONCE ONCE PO 01/17/25 17:30 01/17/25 17:31 DC 01/17/25 18:29 Lorazepam (Ativan Inj) 1 mg ONCE ONCE IV 01/17/25 18:30 01/17/25 18:31 DC 01/17/25 21:44 Morphine Sulfate 4 mg ONCE ONCE IV 01/17/25 20:15 01/17/25 20:29 DC 01/17/25 20:32 Ondansetron HCl (Zofran) 4 mg ONCE ONCE IV 01/17/25 20:15 01/17/25 20:29 DC 01/17/25 20:32 Aspirin 325 mg ONCE ONCE PO 01/17/25 20:15 01/17/25 20:29 DC 01/17/25 20:33 [place] [id number] Ph: [phone] DIAGNOSTIC IMAGING Diagnostic Imaging Report : [id number] Signed PATIENT: ARSALAN LAYTON ACCT: [id number] UNIT: [id number] : 1970 LOC: ER ROOM / BED: / AGE / SEX: 54 / M ADM STATUS: REG ER SERVICE 182 ORDERING PHYSICIAN: YAYO ZHU MD PROCEDURE(s): CXR1 - CHEST XRAY 1 VIEW REASON: cp ORDER NUMBER(s): [id number], ACCESSION NUMBER(s): [id number] CHEST RADIOGRAPH Indication: cp Technique: Single frontal view of the chest was obtained Comparison: XY CHEST XRAY 1 VIEW on DOS: 01/11/25, XY CHEST PORTABLE on DOS: 01/04/25, XY CHEST PORTABLE on DOS: 12/20/24 FINDINGS: Lines and Tubes: None Lungs: No focal consolidation. Mild interstitial prominence. Pleura: No effusion. No pneumothorax. Cardiomediastinal contours: Unremarkable. Midline sternotomy wires noted. Bones: No acute osseous abnormality. Questionable old fracture deformity of right posterolateral 7th rib IMPRESSION: Mild pulmonary vascular congestion. ATED BY: BIRGIT SANTAMARIA DO DICTATED DATE/TIME: 01/17/251854 SIGNED BY: BIRGIT SANTAMARIA DO SIGNED DATE/TIME: 01/17/251854 CC: X-Ray, Labs, Meds, VS Comment 54-year-old male with a history of hypertension, diabetes, CAD status post CABG brought in by EMS from his board and care for a complaint of alcohol withdrawal symptoms. Patient also states he is having chest pain. Vitals unremarkable Exam remarkable for anxiety Rhythm strip independently interpreted by me: Sinus rhythm, rate 81, no ectopy. Chest x-ray CBC unremarkable, basic metabolic panel remarkable for CO2 18, glucose 235, ammonia level less than 10, BNP 64.67, 2 troponins negative, ETOH 34.2, lipase normal Patient treated with the following in the ED: Ativan 1 mg IV, Librium 50 mg p.o., 1 L 0.9 normal saline IV bolus, morphine 4 mg IV, Zofran 4 mg IV, aspirin 325 mg p.o. On re-evaluation, patient states symptoms have improved. Vitals were stable. Hospitalization was considered, however patient had rapid improvement of symptoms with treatment in the ED, and I no longer feel hospitalization is necessary. Two serial troponins are negative, and patient states he has been having chest pain for weeks, so I am not concerned for ACS or OK. he is not currently complaining of chest pain after receiving IV Ativan. He does not appear to be tremulous. I am comfortable discharging the patient with close follow-up with his primary physician. Rx Ativan, Librium Time of 1ST Reevaluation: 19:10 Reevaluation 1ST: Unchanged Time of 2ND Reevaluation: 19:03 Reevaluation 2ND: Improved Patient Education/Counseling: Diagnosis, Treatment Family Education/Counseling: No Family Present Departure 1 Departure Time of Disposition: 19:03 Impression: Primary Impression: Anxiety Additional Impressions: Alcohol withdrawal Qualified Codes: F10.939 - Alcohol use, unspecified with withdrawal, unspecified Nonspecific chest pain Disposition: HOME / SELF CARE / HOMELESS Condition: Stable Additional Instructions: Your blood tests, including screening test for heart attack and heart failure, were unremarkable. Your chest x-ray was unremarkable. Your EKG was unremarkable. I have prescribed medication for alcohol withdrawal. Follow-up with your primary doctor in 1-2 days. Return to ER for persistent or worsening symptoms. e-Prescriptions Chlordiazepoxide Hcl (Librium) 25 Mg Cp 2 TAB PO TID PRN, #30 CAP prn alcohol withdrawal symptoms Prov: YAYO ZHU MD 01/17/25 Lorazepam (Lorazepam) 1 Mg Tab 1 TAB PO TID PRN, #30 TAB prn alcohol withdrawal symptoms Prov: YAYO ZHU MD 01/17/25 Discharged With: Self Critical Care Note Critical Care Time?: No Stability Stability form required: No Heart Score Heart Score: Heart Score Response (Comments) Value History Slightly Suspicious 0 EKG Repolarization Disturb 1 Age 45-64 1 Risk Factors >3 or Hx ASHD 2 Troponin Normal limit 0 Total 4 I personally scribed for YAYO ZHU MD) on 01/17/25 at 18:40. Electronically submitted by Annie Camp ([email or web address]). I personally scribed for YAYO ZHU MD) on 01/17/25 at 20:36. Electronically submitted by Annie Camp ([employer]). I personally scribed for YAYO ZHU MD) on 01/17/25 at 20:37. Electronically submitted by Annie Camp ([employer]). YAYO ZHU MD January 17, 2025 18:40
--- NOTE | 2025-01-17 18:58 | DVH ---
CHEST RADIOGRAPH Indication: cp Technique: Single frontal view of the chest was obtained Comparison: XY CHEST XRAY 1 VIEW on DOS: 01/11/25, XY CHEST PORTABLE on DOS: 01/04/25, XY CHEST PORTABLE on DOS: 12/20/24 FINDINGS: Lines and Tubes: None Lungs: No focal consolidation. Mild interstitial prominence. Pleura: No effusion. No pneumothorax. Cardiomediastinal contours: Unremarkable. Midline sternotomy wires noted. Bones: No acute osseous abnormality. Questionable old fracture deformity of right posterolateral 7th rib IMPRESSION: Mild pulmonary vascular congestion.
[2025-01-17 19:09] LABS: Urine Bacteria None Seen /hpf (None Seen)
[2025-01-17 19:20] LABS: Urine Blood Negative /uL (Negative); Urine Clarity Clear (Clear); Urine Color Light-Yellow (Yellow); Urine Protein, UAD Negative (Negative); Urine Specific Gravity 1.005 (1.001-1.035); Urine Squamous Epithelial Cell None Seen /hpf (<5); Urine Urobilinogen Normal (Negative); Urine WBC < 1 /HPF (0-3)
[2025-01-17 19:30] LABS: Amphetamine Screen, Urine Neg (NEGATIVE); Barbiturate Scree,Urine Neg (NEGATIVE); Benzodiazephine Screen, Urine Pos (NEGATIVE); Cannabinoid Screen, Urine Pos (NEGATIVE); Cocaine Screen, Urine Neg (NEGATIVE); Opiate Scree,Urine Neg (NEGATIVE); Phencyclidine Screen, Urine Neg (NEGATIVE)
[2025-01-17 19:38] VITALS: TEMP 98.5
[2025-01-17 19:40] VITALS: O2SAT 97
[2025-01-17] MEDS ORDERED: CHL25C PO (20:12)
[2025-01-17] MEDS ORDERED: LORA-1123 PO (20:12)
[2025-01-17] MEDS: ONDANSETRON HCL 4 MG/2 ML VIAL IV ONE ×2 (20:32→23:21)
[2025-01-17] MEDS: MORPHINE SULFATE 4 MG/ML SYR/VIAL IV ONE ×2 (20:32→23:21)
[2025-01-17] MEDS: ASPirin 325 MG TAB PO ONE (20:33)
[2025-01-17 22:00] VITALS: O2SAT 95
[2025-01-17 23:21] VITALS: BP 119/76; PULSE 66; RESP 17
--- NOTE | 2025-01-18 10:36 | ECG ---
[facility] Test Date: 2025-01-17 Test Time: 19:51:33 Pat Name: ARSALAN LAYTON Department: ED Room: Gender: M [employer] Operator: gabino : 1970 Requested By: YAYO ALVARADO Order Number: [id number] Reading MD: Felipe Huffman Measurements Intervals [place] Rate: 63 P: 6 VA: 157 QRS: 22 QRSD: 119 T: 1 QT: 424 QTc: 435 Interpretive Statements Sinus rhythm Nonspecific intraventricular conduction delay Inferior infarct, old Electronically Signed On 01-19-2025 21:00:40 PDT by Felipe Huffman Please click the below link to view image of tracing.
== END 2025-01-17 23:25 | disposition home or self-care (01) ==
LOC: EDBD 17:10 → EDUNIT# 17:10 → ER 17:13
DX: F10.939 Alcohol use, unspecified with withdrawal, unspecified (principal); I10 Essential (primary) hypertension; E11.9 Type 2 diabetes mellitus without complications; F41.9 Anxiety disorder, unspecified; E78.5 Hyperlipidemia, unspecified; I25.10 Atherosclerotic heart disease of native coronary artery without angina pectoris; R06.02 Shortness of breath; Z79.899 Other long term (current) drug therapy; Z95.1 Presence of aortocoronary bypass graft; Y90.1 Blood alcohol level of 20-39 mg/100 ml
CPT/HCPCS: 36415; 71045; 80053; 80307; 80320; 81001; 82140; 83690; 83880; 84484; 85025; 93005; 96361; 96374; 96375; 96376; 99285; J2060; J2270; J2405; J7030